=== PATIENT | male | born 1945 | race American Indian/Alaskan Native ===

== ENCOUNTER 2018-03-23 19:35 | Inpatient (IN) | payer MEDICARE ==
--- NOTE | 2018-03-23 20:45 | Emergency Department Report ---
- General Chief Complaint: Wound/Laceration Stated Complaint: PERFORATED ULCER ON STOMACH Time Seen by Provider: 03/23/18 20:42 Source: patient Mode of arrival: Ambulatory Limitations: No Limitations - History of Present Illness Initial Comments: Patient is a 72-year-old male that presents emergency room with complaints of stool coming out of his midline abdominal wound and abdominal pain. Patient states his pain is only directly around the wound. Patient states he had surgery for a perforated ulcer 01/01/2018 and the wound has been improving since then but this morning started draining brown liquid stool from the midline wound. Patient denies fever and chills. Patient denies chest pain short of breath. Patient states the pain is a 2-3 out of 10. Patient states the pain is worse with palpation and movement and better with rest. Patient states that Dr. clarke did his surgery -: Gradual Place: home Patient Tetanus UTD: Yes Associated Symptoms: pain. denies: loss of feeling/numbness, suspect foreign body present, unable to move injured part, weakness followed by dizziness, nausea/vomiting, fever - Related Data Home Medications Medication Instructions Recorded Confirmed Last Taken Aspirin [Aspirin BABY CHEW TAB] 81 mg PO QDAY 03/24/18 03/24/18 Unknown Atorvastatin Calcium 80 mg PO QDAY 03/24/18 03/24/18 Unknown Cholecalciferol (Vitamin D3) 1,000 unit PO QDAY 03/24/18 03/24/18 Unknown [Vitamin D3] Finasteride [Proscar] 5 mg PO QDAY 03/24/18 03/24/18 Unknown Tamsulosin HCl [Flomax] 0.4 mg PO QDAY 03/24/18 03/24/18 Unknown hydroCHLOROthiazide 25 mg PO QAM 03/24/18 03/24/18 Unknown [Hydrochlorothiazide] Previous Rx's Medication Instructions Recorded Last Taken Type Megestrol [Megace] 40 mg PO QID #20 tablet 12/25/17 Unknown Rx Multivitamin Tab [Multiple Vitamin 1 each PO QDAY #30 tablet 12/25/17 Unknown Rx TAB (Theragran)] Pantoprazole [Protonix TAB] 40 mg PO DAILY #30 tablet 12/25/17 Unknown Rx Allergies Allergy/AdvReac Type Severity Reaction Status Date / Time No Known Allergies Allergy Verified 03/23/18 19:44 ED Review of Systems ROS: Stated complaint: PERFORATED ULCER ON STOMACH Other details as noted in HPI Constitutional: denies: chills, fever Eyes: denies: eye pain, eye discharge, vision change ENT: denies: ear pain, throat pain Respiratory: denies: cough, shortness of breath, wheezing Cardiovascular: denies: chest pain, palpitations Endocrine: no symptoms reported Gastrointestinal: abdominal pain. denies: nausea, diarrhea Genitourinary: denies: urgency, dysuria Musculoskeletal: denies: back pain, joint swelling, arthralgia Skin: denies: rash, lesions Neurological: denies: headache, weakness, paresthesias Psychiatric: denies: anxiety, depression Hematological/Lymphatic: denies: easy bleeding, easy bruising ED Past Medical Hx - Past Medical History Previous Medical History?: Yes Hx Hypertension: Yes Hx Diabetes: Yes Hx Deep Vein Thrombosis: No - Surgical History Past Surgical History?: Yes Hx Pacemaker: No Hx Internal Defibrillator: No Additional Surgical History: scrotum and penis, perforated ulcer - Family History Family history: no significant - Social History Smoking Status: Never Smoker Substance Use Type: None - Medications Home Medications: Home Medications Medication Instructions Recorded Confirmed Last Taken Type Megestrol [Megace] 40 mg PO QID #20 tablet 12/25/17 03/24/18 Unknown Rx Multivitamin Tab [Multiple Vitamin 1 each PO QDAY #30 tablet 12/25/17 03/24/18 Unknown Rx TAB (Theragran)] Pantoprazole [Protonix TAB] 40 mg PO DAILY #30 tablet 12/25/17 03/24/18 Unknown Rx Aspirin [Aspirin BABY CHEW TAB] 81 mg PO QDAY 03/24/18 03/24/18 Unknown History Atorvastatin Calcium 80 mg PO QDAY 03/24/18 03/24/18 Unknown History Cholecalciferol (Vitamin D3) 1,000 unit PO QDAY 03/24/18 03/24/18 Unknown History [Vitamin D3] Finasteride [Proscar] 5 mg PO QDAY 03/24/18 03/24/18 Unknown History Tamsulosin HCl [Flomax] 0.4 mg PO QDAY 03/24/18 03/24/18 Unknown History hydroCHLOROthiazide 25 mg PO QAM 03/24/18 03/24/18 Unknown History [Hydrochlorothiazide] ED Physical Exam - General Limitations: No Limitations General appearance: alert, in no apparent distress - Head Head exam: Present: atraumatic, normocephalic - Eye Eye exam: Present: normal appearance - ENT ENT exam: Present: mucous membranes moist - Neck Neck exam: Present: normal inspection - Respiratory Respiratory exam: Present: normal lung sounds bilaterally. Absent: respiratory distress - Cardiovascular Cardiovascular Exam: Present: regular rate, normal rhythm. Absent: systolic murmur, diastolic murmur, rubs, gallop - GI/Abdominal GI/Abdominal exam: Present: soft, tenderness (midline wound noted on abdomen with small hole with stool-like drainage coming from hole. Drainage appears to be stool), normal bowel sounds - Rectal Rectal exam: Present: deferred - Extremities Exam Extremities exam: Present: normal inspection - Back Exam Back exam: Present: normal inspection - Neurological Exam Neurological exam: Present: alert, oriented X3 - Psychiatric Psychiatric exam: Present: normal affect, normal mood - Skin Skin exam: Present: warm, dry, normal color, other (midline surgical site on her abdomen with redness). Absent: rash ED Course Vital Signs 03/23/18 03/23/18 03/24/18 19:44 21:17 00:46 Temperature 97.5 F L 98.8 F Pulse Rate 133 H 94 H Respiratory 16 16 16 Rate Blood Pressure 118/78 Blood Pressure 98/56 [Left] O2 Sat by Pulse 100 100 100 Oximetry - Reevaluation(s) Reevaluation #1: Stressed all results with patient. Patient to be admitted to the hospitalist service. Patient agrees to plan of care 03/24/18 00:40 - Consultations Consultation #1: General surgery paged 03/23/18 20:45 General surgery return call. Discussed case with Dr. Weiner. recommends admission to hospitalist and IV antibiotics and nothing by mouth. 03/23/18 20:50 Consultation #2: Hospitalist consult for admission. Hospitalist to admit and assume care patient. 03/24/18 00:40 ED Medical Decision Making - Lab Data Result diagrams: 03/23/18 20:58 03/23/18 20:58 - Radiology Data Radiology results: report reviewed FINAL REPORT PROCEDURE: CT ABDOMEN PELVIS W CON TECHNIQUE: Computerized axial tomography of the abdomen and pelvis was performed after the IV injection of iodinated nonionic contrast. HISTORY: abd pain COMPARISON: No prior studies are available for comparison. FINDINGS: Visualized lower thorax: No significant abnormality. Liver: There are multiple sub centimeter areas of hypoattenuation within the liver, these have not changed since prior exam. These are too small to characterize. Spleen: Normal size and attenuation. Gallbladder and biliary system: The gallbladder lumen is distended. There is mild dilatation of the common bile duct. No stones are identified. The. Pancreas: Normal. Adrenals: Normal. Kidneys: Both kidneys have a normal size. No hydronephrosis. There is a 1 centimeter cystic region in the lower right renal cortex.. GI tract: Stomach is slightly distended with minimal debris most likely retained food products. There are few loops of slightly dilated small bowel in the mid abdomen. No obstruction is seen. Cecum, appendix region and colon normal. Moderate fecal debris in the distal colon.. Lymph nodes and mesentery: Normal. Vasculature: Moderate atherosclerosis of the aorta and branching vessels. Bladder: Normal. Reproductive organs: Normal. Peritoneum: No free fluid. Musculoskeletal structures: Moderate degenerative changes of the spine.. Other: None. IMPRESSION: There is no evident intestinal or urinary tract obstruction. There are few loops of slightly dilated small bowel in the mid abdomen, a mild enteritis is possible. Moderate fecal debris in the colon is noted, mild constipation is suspected. Sub centimeter areas of hypoattenuation within the liver are again noted and unchanged. These are too small to characterize. Small cystic region inferior right renal cortex is unchanged, this is not fully evaluated on this study. - Medical Decision Making 72-year-old male presents to emergency room with bowel pain and stool leaking from midline surgical site. Patient to be admitted to the hospitalist service. CTA is negative. Patient has recurrent fistula. General surgery consult and wants patient admitted to the hospital service for IV antibiotics and he will see the patient morning. Labs unremarkable. - Differential Diagnosis abdominal pain. Cellulitis. Fistula. Critical Care Time: Yes Critical care attestation.: If time is entered above; I have spent that time in minutes in the direct care of this critically ill patient, excluding procedure time. Critical Care Time: 45 minutes ED Disposition Clinical Impression: Abdominal wall fistula Abdominal pain Qualifiers: Abdominal location: periumbilical Qualified Code(s): R10.33 - Periumbilical pain Disposition: OP ADMIT IP TO THIS HOSP Is pt being admited?: Yes Does the pt Need Aspirin: No Condition: Critical Referrals: TANNER FIELDS MD [Primary Care Provider] - 3-5 Days Time of Disposition: 00:38
[2018-03-23 21:13] LABS: Basophils % (Auto) 0.2 % (0.0-1.8); Eosinophils % (Auto) 0.2 % (0.0-4.3); Hematocrit 29.6 % (35.5-45.6); Hemoglobin 9.8 gm/dl (11.8-15.2); Lymphocytes # (Auto) 1.5 K/mm3 (1.2-5.4); Lymphocytes % (Auto) 21.1 % (13.4-35.0); Mean Corpuscular HGB Conc 33 % (32-34); Mean Corpuscular Volume 82 fl (84-94); Monocytes # (Auto) 0.9 K/mm3 (0.0-0.8); Monocytes % (Auto) 11.7 % (0.0-7.3); Platelet Count 448 K/mm3 (140-440); Red Blood Count 3.62 M/mm3 (3.65-5.03); Red Cell Distribution Width 19.9 % (13.2-15.2)
[2018-03-23 21:41] LABS: Alanine Aminotransferase 18 units/L (7-56); Albumin 3.1 g/dL (3.9-5); BUN/Creatinine Ratio 26; Blood Urea Nitrogen 29 mg/dL (9-20); Hemolysis Index 0
--- NOTE | 2018-03-24 00:03 | Cat Scan Report ---
FINAL REPORT PROCEDURE: CT ABDOMEN PELVIS W CON TECHNIQUE: Computerized axial tomography of the abdomen and pelvis was performed after the IV inject ion of iodinated nonionic contrast. HISTORY: abd pain COMPARISON: No prior studies are available for comparison. FINDINGS: Visualized lower thorax: No significant abnormality. Liver: There are multiple sub centimeter areas of hypoattenuation within the liver, these have not ch anged since prior exam. These are too small to characterize. Spleen: Normal size and attenuation. Gallbladder and biliary system: The gallbladder lumen is distended. There is mild dilatation of the c ommon bile duct. No stones are identified. The. Pancreas: Normal. Adrenals: Normal. Kidneys: Both kidneys have a normal size. No hydronephrosis. There is a 1 centimeter cystic region in the lower right renal cortex.. GI tract: Stomach is slightly distended with minimal debris most likely retained food products. There are few loops of slightly dilated small bowel in the mid abdomen. No obstruction is seen. Cecum, jenyn endix region and colon normal. Moderate fecal debris in the distal colon.. Lymph nodes and mesentery: Normal. Vasculature: Moderate atherosclerosis of the aorta and branching vessels. Bladder: Normal. Reproductive organs: Normal. Peritoneum: No free fluid. Musculoskeletal structures: Moderate degenerative changes of the spine.. Other: None. IMPRESSION: There is no evident intestinal or urinary tract obstruction. There are few loops of slightly dilated small bowel in the mid abdomen, a mild enteritis is possible. Moderate fecal debris in the colon is n oted, mild constipation is suspected. Sub centimeter areas of hypoattenuation within the liver are again noted and unchanged. These are too small to characterize. Small cystic region inferior right renal cortex is unchanged, this is not fully evaluated on this clarissa dy.
[2018-03-24] MEDS ORDERED: ZOSYN/NS 4.5GM/100ML 4.5 GM/100 ML VIAL IV ONE (00:38)
[2018-03-24] MEDS ORDERED: NACL 0.9% 1000 ML 1,000 ML IV ONE (00:45)
[2018-03-24] MEDS ORDERED: SODIUM CHLORIDE FLUSH SYRINGE 10 ML IV PRN (01:18)
[2018-03-24] MEDS ORDERED: TYLENOL PR PRN (01:18)
[2018-03-24] MEDS ORDERED: ZOFRAN IV PRN (01:18)
[2018-03-24] MEDS ORDERED: MORPHINE IV PRN (01:18)
--- NOTE | 2018-03-24 01:24 | History and Physical Report ---
History of Present Illness Date of examination: 03/24/18 History of present illness: 72-year-old man with a history of hypertension, diabetes, BPH, hyperlipidemia, status post surgery for perforated ulcer 2 comes to the emergency room because the area around his fistula has become red, has increase of fecal matter earnest ining from from the fistula since . Spouse at bedside stated that the patient usually have drainage from the fistula, she's only had to change the dressing once to twice a day. However, since she has been doing dressing change every hour Review of systems Constitutional: no weight loss, chills, fever Ears, eyes, nose, mouth and throat: no nasal congestion, no nasal discharge, no sinus pressure, no vision change, no red eye. Neck: No neck pain or rigidity. Cardiovascular: no palpitations, chest pain Respiratory: no cough, shortness of breath Gastrointestinal: no hematochezia, abdominal pain Genitourinary : no frequency , no hematuria Musculoskeletal: no joint swelling or muscle ache Integumentary: no rash, no pruritis Neurological: no parathesias, no focal weakness Endocrine: no cold or heat intolerance, no polyuria or polydipsia Hematologic/Lymphatic: no easy bruising, no easy bleeding, no gland swelling Allergic/Immunologic: no urticaria, no angioedema. PAST MEDICAL HISTORY: hypertension, diabetes, BPH, hyperlipidemia, status post surgery for perforated ulcer 2 PAST SURGICAL HISTORY: status post surgery for perforated ulcer 2, bilateral vagotomy, duodenotomy SOCIAL HISTORY: Denies alcohol, drugs, quit tobacco FAMILY HISTORY: Hypertension Medications and Allergies Allergies Allergy/AdvReac Type Severity Reaction Status Date / Time No Known Allergies Allergy Verified 03/23/18 19:44 Home Medications Medication Instructions Recorded Confirmed Last Taken Type RX: Multivitamin Tab [Multiple 1 each PO QDAY #30 tablet 12/25/17 03/24/18 Unknown Rx Vitamin TAB (Theragran)] RX: Pantoprazole [Protonix TAB] 40 mg PO DAILY #30 tablet 12/25/17 03/24/18 Unknown Rx RX: Aspirin [Aspirin BABY CHEW TAB] 81 mg PO QDAY 03/24/18 03/24/18 Unknown History RX: Atorvastatin Calcium 80 mg PO QDAY 03/24/18 03/24/18 Unknown History RX: Cholecalciferol (Vitamin D3) 1,000 unit PO QDAY 03/24/18 03/24/18 Unknown History [Vitamin D3] RX: Finasteride [Proscar] 5 mg PO QDAY 03/24/18 03/24/18 Unknown History RX: Tamsulosin HCl [Flomax] 0.4 mg PO QDAY 03/24/18 03/24/18 Unknown History RX: hydroCHLOROthiazide 25 mg PO QAM 03/24/18 03/24/18 Unknown History [Hydrochlorothiazide] Ciprofloxacin HCl [Ciprofloxacin 500 mg PO Q12H #14 tab 03/27/18 Unknown Rx TAB] RX: Total Parenteral Nutrition See Protocol IV DAILY@1999 30 Days 03/27/18 Unknown Rx [TPN Adult] ml metroNIDAZOLE [Flagyl] 500 mg PO Q8HR #20 tablet 03/27/18 Unknown Rx Active Meds: Active Medications Acetaminophen (Tylenol) 650 mg [place] Q4H PRN PRN Reason: Pain MILD(1-3)/Fever >100.5/CHACON Enoxaparin Sodium (Lovenox) 30 mg SUB-Q QDAY JOHN Sodium Chloride (Nacl 0.9% 1000 Ml) 1,000 mls @ 250 mls/hr IV ONCE ONE Stop: 03/24/18 04:44 Last Admin: 03/24/18 00:55 Dose: 250 mls/hr Documented by: Sodium Chloride (Nacl 0.45% 1000 Ml) 1,000 mls @ 75 mls/hr IV DIRECT JOHN Morphine Sulfate (Morphine) 1 mg IV Q4H PRN PRN Reason: Pain, Moderate (4-6) Ondansetron HCl (Zofran) 4 mg IV Q4H PRN PRN Reason: Nausea And Vomiting Sodium Chloride (Sodium Chloride Flush Syringe 10 Ml) 10 ml IV BID JOHN Sodium Chloride (Sodium Chloride Flush Syringe 10 Ml) 10 ml IV PRN PRN PRN Reason: LINE FLUSH Exam - Physical Exam Narrative exam: General Apperance: The patient lying in bed, breathing comfortable HEENT: Normocephalic, atraumatic. Pupils equally round and reactive to light, EOMI, no sclericterus or JVD or thyromegaly or nodule. , no carotid bruit, mucous membranes moist, no exudate or erythema Heart: S1-S2, regular is rhythm Lungs: Clear to auscultation bilaterally, breathing comfortable Abdomen: Positive bowel sounds, soft, nontender, nondistended, no organomegaly Extremities: No edema cyanosis clubbing Skin: no rash, nodule, warm and dry Neuro: cranial nerves 2-12 intact, speech is fluent, motor/sensory intact - Constitutional Vitals: Temp Pulse Resp BP Pulse Ox 98.8 F 94 H 16 98/56 100 03/24/18 00:46 03/24/18 00:46 03/24/18 00:46 03/24/18 00:46 03/24/18 00:46 Results - Labs CBC & Chem 7: 03/24/18 05:02 03/28/18 05:25 Labs: Abnormal lab results 03/23/18 03/23/18 Range/Units 20:58 20:58 RBC 3.62 L (3.65-5.03) M/mm3 Hgb 9.8 L (11.8-15.2) gm/dl Hct 29.6 L (35.5-45.6) % MCV 82 L (84-94) fl MCH 27 L (28-32) pg RDW 19.9 H (13.2-15.2) % Plt Count 448 H (140-440) K/mm3 [place] % (Auto) 11.7 H (0.0-7.3) % [place] # 0.9 H (0.0-0.8) K/mm3 Carbon Dioxide 19 L (22-30) mmol/L BUN 29 H (9-20) mg/dL Glucose 123 H (75-100) mg/dL Albumin 3.1 L (3.9-5) g/dL - Imaging and Cardiology CT scan - abdomen: report reviewed CT scan - pelvis: report reviewed Assessment and Plan Assessment Infection of the abdominal wall fistula hypertension diabetes BPH hyperlipidemia Plan Admit to medicine Start IV fluid, IV Zosyn, consult surgery Check fingersticks and initiate insulin sliding scale DVT prophylaxis, IV morphine for pain
[2018-03-24] MEDS ORDERED: NACL 0.45% 1000 ML 1,000 ML IV SCH (02:00)
[2018-03-24 06:17] LABS: Basophils % (Auto) 0.2 % (0.0-1.8); Eosinophils % (Auto) 0.3 % (0.0-4.3); Hematocrit 28.9 % (35.5-45.6); Hemoglobin 9.4 gm/dl (11.8-15.2); Lymphocytes # (Auto) 1.9 K/mm3 (1.2-5.4); Lymphocytes % (Auto) 25.1 % (13.4-35.0); Mean Corpuscular HGB Conc 32 % (32-34); Mean Corpuscular Volume 84 fl (84-94); Monocytes % (Auto) 13.7 % (0.0-7.3); Platelet Count 391 K/mm3 (140-440); Red Blood Count 3.45 M/mm3 (3.65-5.03); Red Cell Distribution Width 19.9 % (13.2-15.2)
[2018-03-24] MEDS: ZOSYN/NS 3.375GM/50ML 3.375 GM/50 ML BAG IV SCH ×3 (06:32→22:57)
[2018-03-24 06:39] LABS: BUN/Creatinine Ratio 28; Blood Urea Nitrogen 25 mg/dL (9-20); Calcium 8.7 mg/dL (8.4-10.2); Hemolysis Index 3
[2018-03-24] MEDS ORDERED: LOVENOX SUB-Q SCH (10:00)
--- NOTE | 2018-03-24 10:17 | Progress Note ---
Assessment and Plan Full consult dictated from previous d/c summary: Procedures: 11/19/17 Exploratory Laparotomy, bilateral vagotomy, duodenotomy, evacuation of a hematoma per Dr. Mercado * CT abdomen and pelvis findings consistent with perforated viscus/peptic ulcer perforation with septic shock, intubated to protect the airway, patient underwent exploratory laparotomy and extensive bowel surgery as mentioned in surgical note Hospital course: 72 yo male pt with h/o recent [facility]inder[facility] with complicated hospital course with perforated peptic ulcer requiring surgery, was sent to rehabilitation for a month and discharged home.Patient presented to [facility] ED on 11/18/17 with AMS requiring Intubation. Severe anemia and sepsis He was found to have perforated peptic ulcer on CT abd/pelvis. Patient seen by surgery and underwent surgical procedure as mentioned below, patient had enterocutaneous fistula, managed with multiple antibiotics and supportive care, significantly improved , was NPO on TPN, oral nutrition gradually started and advanced, most recent CT abdomen and pelvis revealed a small fistula from distal small bowel to abdominal wall which was in significant Today patient is on regular diet, tolerating well, had bowel movement Patient is medically stable for discharge to rehabilitation versus home with home health Discharge diagnosis and treatment: Perforated duodenal ulcer; present on admission -s/p exploratory laparotomy, bilateral vagotomy , duodenotomy, evacuation hematoma, gastroenterostomy, enteroenterostomy, no new symptoms Surgery following periodically , tolerating regular diet , TPN DC'd and cleared for discharge follow in office in 2 weeks Enterocutaneous fistula; significantly improved CT abdomen and pelvis done12/28/17 revealed persistence of small enterocutaneous fistula From distal small bowel to the abdominal wall, surgery evaluated the patient, advised to continue oral nutrition Currently patient is on regular ADA diet. Laboratory Tests 03/24/18 03/24/18 05:02 05:02 WBC 7.5 Hgb 9.4 L Hct 28.9 L Sodium 139 Potassium 4.2 Chloride 99.9 Carbon Dioxide 23 BUN 25 H Creatinine 0.9 Imp - persistent/recurrent entero-cutaneous fistula pt not surgical candidate at this time rec: keep npo except for ice chips and meds start TPN ET nurse for local wd care around fistula site. will follow Objective Vital Signs - 12hr 03/24/18 03/24/18 03/24/18 00:46 03:28 04:45 Temperature 98.8 F 98.3 F Pulse Rate 94 H 90 83 Respiratory 16 16 18 Rate Blood Pressure 118/63 Blood Pressure 98/56 127/68 [Left] O2 Sat by Pulse 100 99 100 Oximetry 03/24/18 03/24/18 08:05 08:40 Temperature 98.4 F Pulse Rate 86 Respiratory 20 Rate Blood Pressure Blood Pressure 117/64 [Left] O2 Sat by Pulse 96 99 Oximetry - Labs 03/24/18 05:02 03/24/18 05:02 Diabetes panel 03/23/18 03/24/18 Range/Units 20:58 05:02 Sodium 139 139 (137-145) mmol/L Potassium 3.8 4.2 (3.6-5.0) mmol/L Chloride 99.3 99.9 (98-107) mmol/L Carbon Dioxide 19 L 23 (22-30) mmol/L BUN 29 H 25 H (9-20) mg/dL Creatinine 1.1 0.9 (0.8-1.5) mg/dL Glucose 123 H 94 (75-100) mg/dL Calcium 9.0 8.7 (8.4-10.2) mg/dL AST 14 (5-40) units/L ALT 18 (7-56) units/L Alkaline Phosphatase 75 (35-129) units/L Total Protein 7.3 (6.3-8.2) g/dL Albumin 3.1 L (3.9-5) g/dL Calcium panel 03/23/18 03/24/18 Range/Units 20:58 05:02 Calcium 9.0 8.7 (8.4-10.2) mg/dL Albumin 3.1 L (3.9-5) g/dL Pituitary panel 03/23/18 03/24/18 Range/Units 20:58 05:02 Sodium 139 139 (137-145) mmol/L Potassium 3.8 4.2 (3.6-5.0) mmol/L Chloride 99.3 99.9 (98-107) mmol/L Carbon Dioxide 19 L 23 (22-30) mmol/L BUN 29 H 25 H (9-20) mg/dL Creatinine 1.1 0.9 (0.8-1.5) mg/dL Glucose 123 H 94 (75-100) mg/dL Calcium 9.0 8.7 (8.4-10.2) mg/dL Adrenal panel 03/23/18 03/24/18 Range/Units 20:58 05:02 Sodium 139 139 (137-145) mmol/L Potassium 3.8 4.2 (3.6-5.0) mmol/L Chloride 99.3 99.9 (98-107) mmol/L Carbon Dioxide 19 L 23 (22-30) mmol/L BUN 29 H 25 H (9-20) mg/dL Creatinine 1.1 0.9 (0.8-1.5) mg/dL Glucose 123 H 94 (75-100) mg/dL Calcium 9.0 8.7 (8.4-10.2) mg/dL Total Bilirubin 1.00 (0.1-1.2) mg/dL AST 14 (5-40) units/L ALT 18 (7-56) units/L Alkaline Phosphatase 75 (35-129) units/L Total Protein 7.3 (6.3-8.2) g/dL Albumin 3.1 L (3.9-5) g/dL
[2018-03-24] MEDS ORDERED: [UNRECOGNIZED DRUG - OTHER] PO ONE (11:00)
[2018-03-24] MEDS ORDERED: MANNITOL PO ONE (11:00)
--- NOTE | 2018-03-24 11:43 | Consultation ---
REASON FOR CONSULTATION: Rule out recurrent enterocutaneous fistula. HISTORY OF PRESENT ILLNESS: The patient is a 72-year-old gentleman, somewhat of a poor historian. Most of the history is obtained from the chart and patient's family. It appears that the patient was admitted here at the hospital back in December secondary to a perforated peptic ulcer. Again, it appears the patient underwent an exploratory laparotomy at that time with a bilateral vagotomy, foraminotomy gastroenterostomy, and enteroenterostomy. Prior to this, family states patient had been at the [facility] where he underwent surgery for Manjinder gangrene and underwent " at that time also appeared again, the history is somewhat nebulous and unclear, but subsequently the patient did come here to this institution and have the aforementioned surgery. The patient postoperatively developed an enterocutaneous fistula, which was treated with n.p.o. and TPN and supportive care. Apparently, the patient was doing much better, but recently the drainage increased and thus his arrival to the hospital. PAST MEDICAL HISTORY: Pertinent for diabetes, hypertension, high cholesterol, BPH, and GERD. PAST SURGICAL HISTORY: Status post peptic ulcer surgery as previously mentioned, status post Manjinder gangrene surgery. ALLERGIES: No known allergies. MEDICATIONS: Included metformin, but family states the patient is now off of metformin and his diabetes is diet controlled. Also on a statin, aspirin, hydrochlorothiazide, Proscar, and Flomax for his BPH and Protonix. FAMILY HISTORY: Hypertension, diabetes, and CVA. SOCIAL HISTORY: He was a longtime smoker, approximately a pack a day for 60 years and quit in September. Also, occasional ethanol intake. PHYSICAL EXAMINATION: GENERAL: At this time reveals the patient to be awake, alert, cooperative, in no acute distress. ABDOMEN: Examination of the abdomen reveals old midline scar. There is slight drainage at a point in the midline scar which family states has much improved since his admission " Some skin irritation around the draining site was to be expected. LABORATORY DATA: Lab work at present includes a CBC, which shows a white count of 7.5, H and H is 9.4 and 28.9. Electrolytes are essentially within normal limits. A CT scan of the abdomen has been performed, which reveals few loops of slightly dilated small bowel in the mid abdomen and possibly mild enteritis. There is no evidence of obstruction noted. IMPRESSION: 1. At this time is a 72-year-old gentleman known diabetes, hypertension, BPH, and GERD. 2. Status post extensive gastric surgery for perforated ulcer. 3. Rule out persistent/recurring enterocutaneous fistula. RECOMMENDATIONS: At this time, would be to keep the patient n.p.o. and restarts TPN. Local wound care around the fistula site. We will follow with you. Thank you very much for consultation. JOB# [id number] FP/NTS
[2018-03-24] MEDS: SODIUM CHLORIDE FLUSH SYRINGE 10 ML IV SCH ×2 (12:17→22:58)
[2018-03-24] MEDS: LOVENOX SUB-Q SCH (12:17)
--- NOTE | 2018-03-24 15:34 | Progress Note ---
Assessment and Plan - Patient Problems (1) Abdominal wall fistula Current Visit: Yes Status: Acute Plan to address problem: Patient presents with recurrent enterocutaneous fistula. Spoke with surgery patient is no longer surgical candidate at this time. Treatment options now to continue local wound care and IV antibiotics. Patient will likely need extended course of by mouth antibiotics upon discharge and aggressive local wound care. Surgery following. (2) Anemia Current Visit: No Status: Acute (3) Peptic ulcer with perforation Current Visit: No Status: Acute Plan to address problem: stable no bleeding H and H stable. no pain History Interval history: Patient able to talk communicate alert oriented. Sister and other family membe rs at bedside all questions and concerns answered to their satisfaction. Also the patient's satisfaction. Hospitalist Physical - Constitutional Vitals: Temp Pulse Resp BP Pulse Ox 97.8 F 85 20 104/63 97 03/24/18 13:30 03/24/18 14:40 03/24/18 13:30 03/24/18 13:30 03/24/18 14:40 General appearance: Present: no acute distress - EENT Eyes: Present: PERRL, EOM intact ENT: hearing intact, clear oral mucosa, poor dentition, no dentition normal, no thrush - Neck Neck: Present: supple, normal ROM - Respiratory Respiratory effort: normal Respiratory: bilateral: CTA - Cardiovascular Rhythm: regular Heart Sounds: Present: S1 & S2 - Extremities Extremities: no ischemia, pulses intact, pulses symmetrical, No edema, normal temperature Peripheral Pulses: within normal limits - Abdominal General gastrointestinal: other (abdomen flat hypoactive bowel sounds. Patient has small area of leakage possible dehiscence. Otherwise warm irritated cellulitic appearing skin around the site. Most likely irritated from the discharge. Has no clear systemic evidence of infection.) Localized gastrointestinal: tender: epigastric periumbilical - Integumentary Integumentary: Present: clear, warm, erythema. Absent: jaundice, rash, clammy, pale - Psychiatric Psychiatric: appropriate mood/affect, intact judgment & insight - Neurologic Neurologic: CNII-XII intact Results - Labs CBC & Chem 7: 03/24/18 05:02 03/24/18 05:02 Labs: Laboratory Last Values WBC 7.5 K/mm3 (4.5-11.0) 03/24/18 05:02 RBC 3.45 M/mm3 (3.65-5.03) L 03/24/18 05:02 Hgb 9.4 gm/dl (11.8-15.2) L 03/24/18 05:02 Hct 28.9 % (35.5-45.6) L 03/24/18 05:02 MCV 84 fl (84-94) 03/24/18 05:02 MCH 27 pg (28-32) L 03/24/18 05:02 MCHC 32 % (32-34) 03/24/18 05:02 RDW 19.9 % (13.2-15.2) H 03/24/18 05:02 Plt Count 391 K/mm3 (140-440) 03/24/18 05:02 Lymph % (Auto) 25.1 % (13.4-35.0) 03/24/18 05:02 [place] % (Auto) 13.7 % (0.0-7.3) H 03/24/18 05:02 Eos % (Auto) 0.3 % (0.0-4.3) 03/24/18 05:02 Baso % (Auto) 0.2 % (0.0-1.8) 03/24/18 05:02 Lymph # 1.9 K/mm3 (1.2-5.4) 03/24/18 05:02 [place] # 1.0 K/mm3 (0.0-0.8) H 03/24/18 05:02 Eos # 0.0 K/mm3 (0.0-0.4) 03/24/18 05:02 Baso # 0.0 K/mm3 (0.0-0.1) 03/24/18 05:02 Seg Neutrophils % 60.7 % (40.0-70.0) 03/24/18 05:02 Seg Neutrophils # 4.6 K/mm3 (1.8-7.7) 03/24/18 05:02 Sodium 139 mmol/L (137-145) 03/24/18 05:02 Potassium 4.2 mmol/L (3.6-5.0) 03/24/18 05:02 Chloride 99.9 mmol/L (98-107) 03/24/18 05:02 Carbon Dioxide 23 mmol/L (22-30) 03/24/18 05:02 Anion Gap 20 mmol/L 03/24/18 05:02 BUN 25 mg/dL (9-20) H 03/24/18 05:02 Creatinine 0.9 mg/dL (0.8-1.5) 03/24/18 05:02 Estimated GFR > 60 ml/min 03/24/18 05:02 BUN/Creatinine Ratio 28 % 03/24/18 05:02 Glucose 94 mg/dL (75-100) 03/24/18 05:02 Lactic Acid 1.20 mmol/L (0.7-2.0) 03/23/18 20:58 Calcium 8.7 mg/dL (8.4-10.2) 03/24/18 05:02 Phosphorus 4.00 mg/dL (2.5-4.5) 03/24/18 05:02 Magnesium 2.00 mg/dL (1.7-2.3) 03/24/18 05:02 Total Bilirubin 1.00 mg/dL (0.1-1.2) 03/23/18 20:58 AST 14 units/L (5-40) 03/23/18 20:58 ALT 18 units/L (7-56) 03/23/18 20:58 Alkaline Phosphatase 75 units/L (35-129) 03/23/18 20:58 Total Protein 7.3 g/dL (6.3-8.2) 03/23/18 20:58 Albumin 3.1 g/dL (3.9-5) L 03/23/18 20:58 Albumin/Globulin Ratio 0.7 % 03/23/18 20:58 Nutrition/Malnutrition Assess - Dietary Evaluation Nutrition/Malnutrition Findings: Nutrition Notes Start: 03/24/18 13:07 Freq: Status: Active Protocol: Document 03/24/18 13:07 [facility] (Rec: 03/24/18 13:22 [facility] [email or web address]) Nutrition Notes Height 6 ft 4 in Weight 68.039 kg [place] Body Weight (lbs) 202.0 BMI 18.2 Is patient on ventilator? No Is Patient Ambulatory and/or Out of Bed Yes [facility] [ 1984.957 NUTR.MSJOOB] Kcal/Kg value to use for calculation 35 Approximate Energy Requirements Using 2381 kcal/Kg Additional Notes Pro needs 1.25-1.5g/k- 102g/day Fluid needs 1ml/kcal
[2018-03-24] MEDS ORDERED: TPN ADULT 1,999.9 ML IV SCH (20:00)
[2018-03-25] MEDS: ZOSYN/NS 3.375GM/50ML 3.375 GM/50 ML BAG IV SCH ×3 (05:03→23:04)
[2018-03-25 05:35] LABS: BUN/Creatinine Ratio 23; Blood Urea Nitrogen 21 mg/dL (9-20); Calcium 8.7 mg/dL (8.4-10.2); Hemolysis Index 3
--- NOTE | 2018-03-25 09:26 | Progress Note ---
Assessment and Plan Assessment and plan: - Patient Problems (1) Abdominal wall fistula Current Visit: Yes Status: Acute Plan to address problem: Patient presents with recurrent enterocutaneous fistula. Spoke with surgery patient is no longer surgical candidate at this time. Treatment options now to continue local wound care and IV antibiotics. Patient will likely need extended course of by mouth antibiotics upon discharge and aggressive local wound care. Surgery following. ET nurse pending. Tolerating TPN. Per surgery will need TPN outpatient. (2) Anemia Current Visit: No Status: Acute (3) Peptic ulcer with perforation Current Visit: No Status: Acute Plan to address problem: stable no bleeding H and H stable. no pain (4) Hypokalmeia- Replace. History Interval history: Patient seen and examined. Family brought to hospital due to home RN noted stool in abdominal fistula. No new complaints, now on TPN and tolerating Hospitalist Physical - Physical exam Narrative exam: General appearance: Present: no acute distress - EENT Eyes: Present: PERRL, EOM intact ENT: hearing intact, clear oral mucosa, poor dentition, no dentition normal, no thrush - Neck Neck: Present: supple, normal ROM - Respiratory Respiratory effort: normal Respiratory: bilateral: CTA - Cardiovascular Rhythm: regular Heart Sounds: Present: S1 & S2 - Extremities Extremities: no ischemia, pulses intact, pulses symmetrical, No edema, normal temperature Peripheral Pulses: within normal limits - Abdominal General gastrointestinal: other (abdomen flat hypoactive bowel sounds. Patient has small area of leakage possible dehiscence. Otherwise warm irritated cellulitic appearing skin around the site. Most likely irritated from the discharge. Has no clear systemic evidence of infection.) Localized gastrointestinal: tender: epigastric periumbilical - Integumentary Integumentary: Present: clear, warm, erythema. Absent: jaundice, rash, clammy, pale - Psychiatric Psychiatric: appropriate mood/affect, intact judgment & insight - Neurologic Neurologic: CNII-XII intact - Constitutional Vitals: Temp Pulse Resp BP Pulse Ox 98.2 F 102 H 18 108/65 98 03/25/18 07:18 03/25/18 07:18 03/25/18 07:18 03/25/18 07:18 03/25/18 08:16 General appearance: Present: no acute distress Results - Labs CBC & Chem 7: 03/24/18 05:02 03/26/18 Unknown Labs: Laboratory Last Values WBC 7.5 K/mm3 (4.5-11.0) 03/24/18 05:02 RBC 3.45 M/mm3 (3.65-5.03) L 03/24/18 05:02 Hgb 9.4 gm/dl (11.8-15.2) L 03/24/18 05:02 Hct 28.9 % (35.5-45.6) L 03/24/18 05:02 MCV 84 fl (84-94) 03/24/18 05:02 MCH 27 pg (28-32) L 03/24/18 05:02 MCHC 32 % (32-34) 03/24/18 05:02 RDW 19.9 % (13.2-15.2) H 03/24/18 05:02 Plt Count 391 K/mm3 (140-440) 03/24/18 05:02 Lymph % (Auto) 25.1 % (13.4-35.0) 03/24/18 05:02 [place] % (Auto) 13.7 % (0.0-7.3) H 03/24/18 05:02 Eos % (Auto) 0.3 % (0.0-4.3) 03/24/18 05:02 Baso % (Auto) 0.2 % (0.0-1.8) 03/24/18 05:02 Lymph # 1.9 K/mm3 (1.2-5.4) 03/24/18 05:02 [place] # 1.0 K/mm3 (0.0-0.8) H 03/24/18 05:02 Eos # 0.0 K/mm3 (0.0-0.4) 03/24/18 05:02 Baso # 0.0 K/mm3 (0.0-0.1) 03/24/18 05:02 Seg Neutrophils % 60.7 % (40.0-70.0) 03/24/18 05:02 Seg Neutrophils # 4.6 K/mm3 (1.8-7.7) 03/24/18 05:02 Sodium 138 mmol/L (137-145) 03/25/18 05:00 Potassium 3.3 mmol/L (3.6-5.0) L D 03/25/18 05:00 Chloride 101.8 mmol/L (98-107) 03/25/18 05:00 Carbon Dioxide 20 mmol/L (22-30) L 03/25/18 05:00 Anion Gap 20 mmol/L 03/25/18 05:00 BUN 21 mg/dL (9-20) H 03/25/18 05:00 Creatinine 0.9 mg/dL (0.8-1.5) 03/25/18 05:00 Estimated GFR > 60 ml/min 03/25/18 05:00 BUN/Creatinine Ratio 23 % 03/25/18 05:00 Glucose 123 mg/dL (75-100) H 03/25/18 05:00 POC Glucose 117 (70-105) H 03/25/18 04:51 Lactic Acid 1.20 mmol/L (0.7-2.0) 03/23/18 20:58 Calcium 8.7 mg/dL (8.4-10.2) 03/25/18 05:00 Phosphorus 4.70 mg/dL (2.5-4.5) H 03/25/18 05:00 Magnesium 2.10 mg/dL (1.7-2.3) 03/25/18 05:00 Total Bilirubin 1.00 mg/dL (0.1-1.2) 03/23/18 20:58 AST 14 units/L (5-40) 03/23/18 20:58 ALT 18 units/L (7-56) 03/23/18 20:58 Alkaline Phosphatase 75 units/L (35-129) 03/23/18 20:58 Total Protein 7.3 g/dL (6.3-8.2) 03/23/18 20:58 Albumin 3.1 g/dL (3.9-5) L 03/23/18 20:58 Albumin/Globulin Ratio 0.7 % 03/23/18 20:58 Nutrition/Malnutrition Assess - Dietary Evaluation Nutrition/Malnutrition Findings: Nutrition Notes Start: 03/24/18 13:07 Freq: Status: Active Protocol: Document 03/24/18 13:07 [facility] (Rec: 03/24/18 13:22 [facility] SRW- [email or web address]) Nutrition Notes Need for Assessment generated from: 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 Pt also screened for malnutrition risk. [employer]ING, pt had good appetite, but was eating smaller portions. MD wants bowel rest at this time. PICC line ordered. Percent of energy/protein needs met: 34% energy 100% pro Burn Absent Trauma Absent GI Symptoms None Food Allergy No Current % PO Negligible Minimum of two criteria Yes Interpretation of Weight Loss (severe) >10% in 6 months Body Fat Depletion Moderate depletion (severe) Muscle Mass Moderate Depletion (severe) Fluid Accumulation N/A Reduced Perinatal Director Strength N/A (non-severe) Protein-Calorie Malnutrition Severe #2 Nutrition Diagnosis Malnutrition Etiology chronic illness, altered GI tract structure/function As Evidenced by Signs and Symptoms BMI 18.3, unintentional wt loss, subcutaneous fat loss, muscle loss, reduced PO intake #1 Nutrition Diagnosis Altered GI function Etiology perforated abdominal ulcer As Evidenced by Signs and Symptoms pt NPO and requires PN to meet nutrient needs Is patient on ventilator? No Is Patient Ambulatory and/or Out of Bed Yes REE-([facility]-ambulatory/OOB) [ 1984.957 NUTR.MSJOOB] Kcal/Kg value to use for calculation 35 Approximate Energy Requirements Using 2381 kcal/Kg Additional Notes Pro needs 1.25-1.5g/k- 102g/day Fluid needs 1ml/kcal Nutrition Intervention Nutrition Support: Start PN at 83.33ml/hr: 5% dextrose, 4.3% amino acids, MVI, thiamines, 100mEq Na, 70mEq K, 16mEq Mg, 20mmol Phos , 50%/50% chloride/acetate. Osmolality: 768. Kcal 680 Protein (gm) 85 Carbohydrates (gm) 100 Fat (gm) 0 Fluid (mL) 2,000 Fiber (gm) 0 Goal #1 PN to meet 90-100% energy and pro needs Goal #2 Wt maintenance and/or gain Anticipated Discharge Needs: Continue TPN if necessary Follow-Up By: 03/25/18 Additional Comments Labs in am: BMP, Mg, Phos - Attestation Statement I have reviewed and agreed w/ Malnutrition eval & tx plan: Yes
[2018-03-25] MEDS: LOVENOX SUB-Q SCH (10:05)
[2018-03-25] MEDS: SODIUM CHLORIDE FLUSH SYRINGE 10 ML IV SCH (10:06)
--- NOTE | 2018-03-25 11:09 | Progress Note ---
Assessment and Plan Pt status quo. recently sedated. no specific compl as per family. RN noted "stool" drainage from fistula site Abd soft TPN begun r/o colo-cutaneous fistula awaiting ET nurse for local care PT to ambulate as angelito correct low K as per nutrition team pt will need home TPN arrangements as per case management Selected Entries 03/25/18 03/25/18 07:18 08:16 Temperature 98.2 F Pulse Rate 102 H O2 Sat by Pulse 98 Oximetry Blood Pressure 108/65 Laboratory Tests 03/25/18 05:00 Sodium 138 Potassium 3.3 L D Chloride 101.8 BUN 21 H Creatinine 0.9 Objective Vital Signs - 12hr 03/25/18 03/25/18 03/25/18 02:07 06:04 07:18 Temperature 98.8 F 98.2 F Pulse Rate 96 H 102 H Respiratory 16 18 18 Rate Blood Pressure 132/72 108/65 O2 Sat by Pulse 99 100 Oximetry 03/25/18 08:16 Temperature Pulse Rate Respiratory Rate Blood Pressure O2 Sat by Pulse 98 Oximetry - Labs 03/24/18 05:02 03/25/18 05:00 Diabetes panel 03/25/18 Range/Units 05:00 Sodium 138 (137-145) mmol/L Potassium 3.3 L D (3.6-5.0) mmol/L Chloride 101.8 (98-107) mmol/L Carbon Dioxide 20 L (22-30) mmol/L BUN 21 H (9-20) mg/dL Creatinine 0.9 (0.8-1.5) mg/dL Glucose 123 H (75-100) mg/dL Calcium 8.7 (8.4-10.2) mg/dL Calcium panel 03/24/18 03/25/18 Range/Units 05:02 05:00 Calcium 8.7 (8.4-10.2) mg/dL Phosphorus 4.00 4.70 H (2.5-4.5) mg/dL Pituitary panel 03/25/18 Range/Units 05:00 Sodium 138 (137-145) mmol/L Potassium 3.3 L D (3.6-5.0) mmol/L Chloride 101.8 (98-107) mmol/L Carbon Dioxide 20 L (22-30) mmol/L BUN 21 H (9-20) mg/dL Creatinine 0.9 (0.8-1.5) mg/dL Glucose 123 H (75-100) mg/dL Calcium 8.7 (8.4-10.2) mg/dL Adrenal panel 03/25/18 Range/Units 05:00 Sodium 138 (137-145) mmol/L Potassium 3.3 L D (3.6-5.0) mmol/L Chloride 101.8 (98-107) mmol/L Carbon Dioxide 20 L (22-30) mmol/L BUN 21 H (9-20) mg/dL Creatinine 0.9 (0.8-1.5) mg/dL Glucose 123 H (75-100) mg/dL Calcium 8.7 (8.4-10.2) mg/dL
[2018-03-25] MEDS ORDERED: TPN ADULT IV SCH (20:00)
[2018-03-26] MEDS: SODIUM CHLORIDE FLUSH SYRINGE 10 ML IV SCH ×2 (02:40→09:03)
[2018-03-26 07:02] LABS: BUN/Creatinine Ratio 25; Blood Urea Nitrogen 25 mg/dL (9-20); Calcium 8.3 mg/dL (8.4-10.2); Hemolysis Index 7
--- NOTE | 2018-03-26 08:41 | Progress Note ---
Assessment and Plan Assessment and plan: 71-year-old man with a history of hypertension, diabetes, BPH, hyperlipidemia, status post surgery for perforated ulcer 2 comes to the emergency room because the area around his fistula has become red, has increase of fecal matter draining from from the fistula since . Spouse at bedside stated that the patient usually have drainage from the fistula, she's only had to change the dressing once to twice a day. However, since she has been doing dressing change every hour. Surgery evaluated the patient and he is according to surgery not a surgical candidate at this time. Will continue supportive care. TPN needed and to be managed outpatient by Surgery and home health. Awaiting PIC C line. Patient will continue home activity as tolerated. - Patient Problems (1) Abdominal wall fistula Current Visit: Yes Status: Acute Plan to address problem: Patient presents with recurrent enterocutaneous fistula. Spoke with surgery patient is no longer surgical candidate at this time. Treatment options now to continue local wound care and IV antibiotics. Patient will likely need extended course of by mouth antibiotics upon discharge and aggressive local wound care. Surgery following. ET nurse pending. Tolerating TPN. Per surgery will need TPN outpatient. CT scan concerning for mild constipation. Will recommend outpatient follow up with CT with surgeon Discussed with surgeon and he can follow with patient outpatient PRN BUT advised patient of need for close follow up with PCP for electrolyte managment. Expected to be on TPN per surgeon for 3-6 weeks to see if fistula will heal. (2) Anemia Current Visit: No Status: Acute (3) Peptic ulcer with perforation Current Visit: No Status: Acute Plan to address problem: stable no bleeding H and H stable. no pain (4) Hypokalmeia- Replaced. DVT/GI prophy Case management to evaluate for Rehab for physical optimization prior to dischar ge. History Interval history: Patient seen and examined. Family brought to hospital due to home RN noted stool in abdominal fistula. No new complaints, now on TPN and tolerating Hospitalist Physical - Physical exam Narrative exam: General appearance: Present: no acute distress - EENT Eyes: Present: PERRL, EOM intact ENT: hearing intact, clear oral mucosa, poor dentition, no dentition normal, no thrush - Neck Neck: Present: supple, normal ROM - Respiratory Respiratory effort: normal Respiratory: bilateral: CTA - Cardiovascular Rhythm: regular Heart Sounds: Present: S1 & S2 - Extremities Extremities: no ischemia, pulses intact, pulses symmetrical, No edema, normal temperature Peripheral Pulses: within normal limits - Abdominal General gastrointestinal: other (abdomen flat hypoactive bowel sounds. Patient has small area of leakage possible dehiscence. Otherwise warm irritated cellulitic appearing skin around the site. Most likely irritated from the discharge. Has no clear systemic evidence of infection.) Localized gastrointestinal: tender: epigastric periumbilical - Integumentary Integumentary: Present: clear, warm, erythema. Absent: jaundice, rash, clammy, pale - Psychiatric Psychiatric: appropriate mood/affect, intact judgment & insight - Neurologic Neurologic: CNII-XII intact - Constitutional Vitals: Temp Pulse Resp BP Pulse Ox 98.7 F 66 20 102/49 100 03/26/18 02:40 03/26/18 02:40 03/26/18 02:40 03/26/18 02:40 03/26/18 02:40 General appearance: Present: no acute distress Results - Labs CBC & Chem 7: 03/24/18 05:02 03/26/18 Unknown Labs: Laboratory Last Values WBC 7.5 K/mm3 (4.5-11.0) 03/24/18 05:02 RBC 3.45 M/mm3 (3.65-5.03) L 03/24/18 05:02 Hgb 9.4 gm/dl (11.8-15.2) L 03/24/18 05:02 Hct 28.9 % (35.5-45.6) L 03/24/18 05:02 MCV 84 fl (84-94) 03/24/18 05:02 MCH 27 pg (28-32) L 03/24/18 05:02 MCHC 32 % (32-34) 03/24/18 05:02 RDW 19.9 % (13.2-15.2) H 03/24/18 05:02 Plt Count 391 K/mm3 (140-440) 03/24/18 05:02 Lymph % (Auto) 25.1 % (13.4-35.0) 03/24/18 05:02 [place] % (Auto) 13.7 % (0.0-7.3) H 03/24/18 05:02 Eos % (Auto) 0.3 % (0.0-4.3) 03/24/18 05:02 Baso % (Auto) 0.2 % (0.0-1.8) 03/24/18 05:02 Lymph # 1.9 K/mm3 (1.2-5.4) 03/24/18 05:02 [place] # 1.0 K/mm3 (0.0-0.8) H 03/24/18 05:02 Eos # 0.0 K/mm3 (0.0-0.4) 03/24/18 05:02 Baso # 0.0 K/mm3 (0.0-0.1) 03/24/18 05:02 Seg Neutrophils % 60.7 % (40.0-70.0) 03/24/18 05:02 Seg Neutrophils # 4.6 K/mm3 (1.8-7.7) 03/24/18 05:02 Sodium 139 mmol/L (137-145) 03/26/18 Unknown Potassium 4.2 mmol/L (3.6-5.0) D 03/26/18 Unknown Chloride 103.4 mmol/L (98-107) 03/26/18 Unknown Carbon Dioxide 23 mmol/L (22-30) 03/26/18 Unknown Anion Gap 17 mmol/L 03/26/18 Unknown BUN 25 mg/dL (9-20) H 03/26/18 Unknown Creatinine 1.0 mg/dL (0.8-1.5) 03/26/18 Unknown Estimated GFR > 60 ml/min 03/26/18 Unknown BUN/Creatinine Ratio 25 % 03/26/18 Unknown Glucose 122 mg/dL (75-100) H 03/26/18 Unknown POC Glucose 117 (70-105) H 03/25/18 04:51 Lactic Acid 1.20 mmol/L (0.7-2.0) 03/23/18 20:58 Calcium 8.3 mg/dL (8.4-10.2) L 03/26/18 Unknown Phosphorus 3.00 mg/dL (2.5-4.5) D 03/26/18 Unknown Magnesium 2.20 mg/dL (1.7-2.3) 03/26/18 Unknown Total Bilirubin 1.00 mg/dL (0.1-1.2) 03/23/18 20:58 AST 14 units/L (5-40) 03/23/18 20:58 ALT 18 units/L (7-56) 03/23/18 20:58 Alkaline Phosphatase 75 units/L (35-129) 03/23/18 20:58 Total Protein 7.3 g/dL (6.3-8.2) 03/23/18 20:58 Albumin 3.1 g/dL (3.9-5) L 03/23/18 20:58 Albumin/Globulin Ratio 0.7 % 03/23/18 20:58 Nutrition/Malnutrition Assess - Dietary Evaluation Nutrition/Malnutrition Findings: Nutrition Notes Start: 03/24/18 13:07 Freq: Status: Active Protocol: Document 03/25/18 12:25 [facility] (Rec: 03/25/18 12:28 [facility] SRW- [email or web address]) Nutrition Notes Initial or Follow up Reassessment Current Diagnosis Diabetes Other Pertinent Diagnosis Perforated abdominal ulcer Current Diet TPN at 83.33ml/hr Labs/Tests K 3.3 CO2 - 20 BUN 21 Phos 4.7 Pertinent Medications Reviewed Height 6 ft 4 in Weight 68.039 kg [place] Body Weight (lbs) 202.0 BMI 18.2 Subjective/Other Information Day 2 PPN. Observed PN infusing at 83.33ml/hr. Percent of energy/protein needs met: 36% energy 100% pro Burn Absent Trauma Absent #2 Nutrition Diagnosis Malnutrition Diagnosis Progress(for reassessment Continues documentation) #1 Nutrition Diagnosis Altered GI function Diagnosis Progress(for reassessment Continues documentation) Is patient on ventilator? No Is Patient Ambulatory and/or Out of Bed Yes REE-([facility]-ambulatory/OOB) [ 1983.957 NUTR.MSJOOB] Kcal/Kg value to use for calculation 35 Approximate Energy Requirements Using 2381 kcal/Kg Additional Notes Pro needs 1.25-1.5g/k- 102g/day Fluid needs 1ml/kcal Nutrition Intervention Nutrition Support: Continue PN at 83.33ml/hr: MVI , thiamine, 4.8% amino acids, 100mEq K, 0mmol Phos, 25%/75% chloride/acetate. Osmolality: 833. Kcal 720 Protein (gm) 95 Carbohydrates (gm) 100 Fat (gm) 0 Fluid (mL) 2,000 Fiber (gm) 0 Goal #1 PN to meet 90-100% energy and pro needs Goal #2 Wt maintenance and/or gain Anticipated Discharge Needs: Continue TPN if necessary Follow-Up By: 03/26/18 Additional Comments Labs in am: RAY, Mg, Sue
[2018-03-26] MEDS ORDERED: KCL 10MEQ/100ML 10 MEQ/100 ML BAG IV SCH (09:00)
[2018-03-26] MEDS: ZOSYN/NS 3.375GM/50ML 3.375 GM/50 ML BAG IV SCH (09:02)
[2018-03-26] MEDS: LOVENOX SUB-Q SCH (09:03)
--- NOTE | 2018-03-26 13:04 | Progress Note ---
Assessment and Plan Pt status quo. no compl. Dressings dry ET nurse evaluated pt and spoke with family about local wd and skin care surgically stable about to have CVP line inserted Home health arrangements being completed for home TPN for the next 3-6 wks. continue present care Selected Entries 03/26/18 03/26/18 03/26/18 07:50 08:00 10:00 Temperature 97.9 F Pulse Rate [ 64 Left Radial] O2 Sat by Pulse 97 Oximetry Blood Pressure 121/61 Laboratory Tests 03/26/18 Unknown Sodium 139 Potassium 4.2 D Chloride 103.4 Carbon Dioxide 23 Anion Gap 17 BUN 25 H Creatinine 1.0 Objective Vital Signs - 12hr 03/26/18 03/26/18 03/26/18 02:40 07:50 08:00 Temperature 98.7 F 97.9 F Pulse Rate 66 79 Pulse Rate [ 64 Left Radial] Respiratory 20 18 Rate Blood Pressure 121/61 Blood Pressure 102/49 [Left] O2 Sat by Pulse 100 100 100 Oximetry 03/26/18 10:00 Temperature Pulse Rate Pulse Rate [ Left Radial] Respiratory Rate Blood Pressure Blood Pressure [Left] O2 Sat by Pulse 97 Oximetry - Labs 03/24/18 05:02 03/26/18 Unknown Diabetes panel 03/26/18 Range/Units Unknown Sodium 139 (137-145) mmol/L Potassium 4.2 D (3.6-5.0) mmol/L Chloride 103.4 (98-107) mmol/L Carbon Dioxide 23 (22-30) mmol/L BUN 25 H (9-20) mg/dL Creatinine 1.0 (0.8-1.5) mg/dL Glucose 122 H (75-100) mg/dL Calcium 8.3 L (8.4-10.2) mg/dL Calcium panel 03/26/18 Range/Units Unknown Calcium 8.3 L (8.4-10.2) mg/dL Phosphorus 3.00 D (2.5-4.5) mg/dL Pituitary panel 03/26/18 Range/Units Unknown Sodium 139 (137-145) mmol/L Potassium 4.2 D (3.6-5.0) mmol/L Chloride 103.4 (98-107) mmol/L Carbon Dioxide 23 (22-30) mmol/L BUN 25 H (9-20) mg/dL Creatinine 1.0 (0.8-1.5) mg/dL Glucose 122 H (75-100) mg/dL Calcium 8.3 L (8.4-10.2) mg/dL Adrenal panel 03/26/18 Range/Units Unknown Sodium 139 (137-145) mmol/L Potassium 4.2 D (3.6-5.0) mmol/L Chloride 103.4 (98-107) mmol/L Carbon Dioxide 23 (22-30) mmol/L BUN 25 H (9-20) mg/dL Creatinine 1.0 (0.8-1.5) mg/dL Glucose 122 H (75-100) mg/dL Calcium 8.3 L (8.4-10.2) mg/dL
[2018-03-26] MEDS: ZOSYN/NS 4.5GM/100ML 4.5 GM/100 ML VIAL IV SCH ×2 (13:52→22:00)
[2018-03-26] MEDS ORDERED: TPN ADULT 1,999.92 ML IV SCH ×2 (20:00)
[2018-03-27] MEDS: ZOSYN/NS 4.5GM/100ML 4.5 GM/100 ML VIAL IV SCH ×3 (06:33→22:16)
[2018-03-27] MEDS: SODIUM CHLORIDE FLUSH SYRINGE 10 ML IV SCH ×3 (06:41→22:20)
[2018-03-27 06:44] LABS: BUN/Creatinine Ratio 31; Blood Urea Nitrogen 25 mg/dL (9-20); Calcium 8.3 mg/dL (8.4-10.2); Hemolysis Index 0
[2018-03-27] MEDS ORDERED: NACL 0.9% 250ML 250 ML ONE (12:02)
[2018-03-27] MEDS ORDERED: SUBLIMAZE ONE (12:02)
[2018-03-27] MEDS ORDERED: HEPARIN/NS 5000 UNIT/500ML(CATH LAB) 500 ML IR ONE (12:02)
[2018-03-27] MEDS ORDERED: VERSED ONE (12:02)
[2018-03-27] MEDS: XYLOCAINE 2% INFILTRATI ONE ×3 (12:15→12:32)
--- NOTE | 2018-03-27 12:41 | Operative Report ---
Operative Report Operative Report: Date of procedure: 03/27/2018 Pre-operative diagnosis: Need For long-term venous access Post-operative diagnosis: Same Procedure: 1. Ultrasound-guided access of left arm brachial vein 2. Placement of PICC line into the distal circulation via brachial vein access Surgeon: Jaxon Tracy MD, FSVS, FACS Anesthesia: Local with moderate sedation. Sedation start: 1223. Sedation end: 1234. Total sedation time: 11 minutes. Sedation units: 1 EBL: Minimal Operative indication: Patient is a 72-year-old man who needs chronic venous access. Findings: PICC line at the caval atrial junction. Both ports flush and aspirate well. Procedure description: Patient was placed on the table in supine position. Patient was given moderate sedation. The area over the left arm was prepped with ChloraPrep solution and draped in the usual sterile fashion. 2% lidocaine plain was used for local anesthesia. The basilic vein was identified in the upper arm on the left. The basilic vein was actually thrombosed. I attempted to cannulate it but was not successful. I identified a brachial vein branch in the mid upper arm and decided to use that. Micropuncture technique was used to enter the vein. The micro-sheath was placed and then a guidewire was passed into the central circulation. The distance on the guidewire was noted.. The PICC catheter was cut to that length. The peel-away sheath was placed over the guidewire into the basilar vein. The catheter was then placed over the guidewire into the central circulation. The peel-away sheath was removed. The catheter was placed to the tip was at the cavoatrial junction. Blood could be aspirated from the catheter. The catheter was then flushed with normal saline in both ports. The catheter was fixed fixed to the skin using the StatLock device. Sterile dressings were applied. The patient tolerated the procedure well.
--- NOTE | 2018-03-27 13:24 | Progress Note ---
Assessment and Plan Pt surgically stable. minimal drainage from fistula since placed npo. Dressings minimal greenish staining on gauze Abd soft surgically stable keep npo except for meds may d/c from surgical perspective once all home health arrangements in order rto Monday Selected Entries 03/27/18 07:39 Temperature 97.8 F Pulse Rate 82 Respiratory 18 Rate Laboratory Tests 03/27/18 05:45 Sodium 138 Potassium 5.0 Chloride 105.0 Carbon Dioxide 22 Anion Gap 16 BUN 25 H Creatinine 0.8 Objective Vital Signs - 12hr 03/27/18 03/27/18 03/27/18 03:23 07:39 10:58 Temperature 97.8 F 97.8 F Pulse Rate 66 82 Respiratory 18 18 Rate Blood Pressure 144/62 127/63 O2 Sat by Pulse 100 99 100 Oximetry - Labs 03/24/18 05:02 03/27/18 05:45 Diabetes panel 03/27/18 Range/Units 05:45 Sodium 138 (137-145) mmol/L Potassium 5.0 (3.6-5.0) mmol/L Chloride 105.0 (98-107) mmol/L Carbon Dioxide 22 (22-30) mmol/L BUN 25 H (9-20) mg/dL Creatinine 0.8 (0.8-1.5) mg/dL Glucose 107 H (75-100) mg/dL Calcium 8.3 L (8.4-10.2) mg/dL Triglycerides 106 (2-149) mg/dL Calcium panel 03/27/18 Range/Units 05:45 Calcium 8.3 L (8.4-10.2) mg/dL Phosphorus 3.00 (2.5-4.5) mg/dL Pituitary panel 03/27/18 Range/Units 05:45 Sodium 138 (137-145) mmol/L Potassium 5.0 (3.6-5.0) mmol/L Chloride 105.0 (98-107) mmol/L Carbon Dioxide 22 (22-30) mmol/L BUN 25 H (9-20) mg/dL Creatinine 0.8 (0.8-1.5) mg/dL Glucose 107 H (75-100) mg/dL Calcium 8.3 L (8.4-10.2) mg/dL Adrenal panel 03/27/18 Range/Units 05:45 Sodium 138 (137-145) mmol/L Potassium 5.0 (3.6-5.0) mmol/L Chloride 105.0 (98-107) mmol/L Carbon Dioxide 22 (22-30) mmol/L BUN 25 H (9-20) mg/dL Creatinine 0.8 (0.8-1.5) mg/dL Glucose 107 H (75-100) mg/dL Calcium 8.3 L (8.4-10.2) mg/dL
[2018-03-27] MEDS: LOVENOX SUB-Q SCH (14:53)
--- NOTE | 2018-03-27 14:59 | Discharge Summary ---
Providers - Providers Date of Admission: 03/24/18 03:38 Attending physician: FIOR POWELL MD 03/24/18 00:55 Consult to Physician [CONS] Routine Comment: called answ. serv./diana Consulting Provider: BEBE SHAFFER Physician Instructions: Reason For Exam: fistula 03/24/18 10:19 Consult to Wound/ET Nurse [CONS] Routine Reason For Exam: entero cutaneous fistula wd care 03/24/18 10:31 Physical Therapy Evaluation and Treat [CONS] Routine Comment: Reason For Exam: ambulate with assistance 03/24/18 10:32 Consult to Dietitian/Nutrition [CONS] Routine Physician Instructions: Reason For Exam: Reason for Consult: Write/Manage TPN/PPN Consult to PICC Line RN [CONS] Routine Reason For Exam: TPN Type Line:: PICC 03/26/18 08:38 Consult to Case Management [CONS] Routine Services Needed at Discharge: Employee Placement Specialist Notified:: POLO Jensen Physician Instructions: TPN OUTPATIENT 03/26/18 10:08 Consult to Interventional Radiology [CONS] Routine Consulting Provider: ANGELO TIMMONS Reason For Exam: central access for TPN, unable to get PICC Place consult to:: Notified:: Was contact made?: Yes If yes, spoke with:: LAURA De Guzman called:: 10:57 Comment:: HIMA Primary care physician: TANNER FIELDS Hospitalization Reason for admission: enterocutaneous fistula Condition: Stable Hospital course: 71-year-old man with a history of hypertension, diabetes, BPH, hyperlipidemia, status post surgery for perforated ulcer 2 comes to the emergency room because the area around his fistula has become red, has increase of fecal matter draining from from the fistula since . Spouse at bedside stated that the patient usually have drainage from the fistula, she's only had to change the dressing once to twice a day. However, since she has been doing dressing change every hour. Surgery evaluated the patient and he is according to surgery not a surgical candidate at this time. Will continue supportive care. TPN needed and to be managed outpatient by Surgery and home health. Awaiting PICC line. Patient will continue home activity as tolerated. Patient was seen by Surgery and they spoke that this is recurrent enterocutaneous fistula and is not a surgical candidiate and should be managed consveratively with NPO and keep the patient on TPN Discussed with surgeon and he can follow with patient outpatient PRN BUT advised patient of need for close follow up with PCP for electrolyte managment. Expected to be on TPN per surgeon for 3-6 weeks to see if fistula will heal. Patient obtained PICC Access with Vascular help on Left arm (1) Recurrent enterocutaneous fistula. (2) Anemia (3) Peptic ulcer with perforation (4) Hypokalmeia Disposition: DC/TX-06 HOME UNDER HOME [facility] Time spent for discharge: 35 mins Core Measure Documentation - Palliative Care Palliative Care/ Comfort Measures: Not Applicable - Core Measures Any of the following diagnoses?: none - VTE Discharge Requirements Deep Vein Thrombosis/Pulmonary Embolism Present on Admission: No Exam - Physical Exam Narrative exam: General appearance: Present: no acute distress - EENT Eyes: Present: PERRL, EOM intact ENT: hearing intact, clear oral mucosa, poor dentition, no dentition normal, no thrush - Neck Neck: Present: supple, normal ROM - Respiratory Respiratory effort: normal Respiratory: bilateral: CTA - Cardiovascular Rhythm: regular Heart Sounds: Present: S1 & S2 - Extremities Extremities: no ischemia, pulses intact, pulses symmetrical, No edema, normal temperature Peripheral Pulses: within normal limits - Abdominal General gastrointestinal: other (abdomen flat hypoactive bowel sounds. dressing in place, .) Localized gastrointestinal: tender: epigastric periumbilical - Integumentary Integumentary: Present: clear, warm, erythema. Absent: jaundice, rash, clammy, pale - Psychiatric Psychiatric: appropriate mood/affect, intact judgment & insight - Neurologic Neurologic: CNII-XII intact - Constitutional Vitals: Temp Pulse Resp BP Pulse Ox 97.5 F L 78 18 141/84 99 03/27/18 13:23 03/27/18 13:23 03/27/18 13:23 03/27/18 13:23 03/27/18 13:23 Plan Activity: advance as tolerated, fall precautions Diet: other (TPN only. No oral intake except meds with sips of water) Special Instructions: record daily weights, record daily BP diary Follow up with: TANNER FIELDS MD [Primary Care Provider] - 3-5 Days BEBE SHAFFER MD [Staff Physician] - 7 Days
--- NOTE | 2018-03-27 17:13 | Progress Note ---
Assessment and Plan Assessment and plan: 71-year-old man with a history of hypertension, diabetes, BPH, hyperlipidemia, status post surgery for perforated ulcer 2 comes to the emergency room because the area around his fistula has become red, has increase of fecal matter draining from from the fistula since . Spouse at bedside stated that the patient usually have drainage from the fistula, she's only had to change the dressing once to twice a day. However, since she has been doing dressing change every hour. Surgery evaluated the patient and he is according to surgery not a surgical candidate at this time. Will continue supportive care. TPN needed and to be managed outpatient by Surgery and home health. Awaiting PIC C line. Patient will continue home activity as tolerated. - Patient Problems (1) Abdominal wall fistula Current Visit: Yes Status: Acute Plan to address problem: Patient presents with recurrent enterocutaneous fistula. Spoke with surgery patient is no longer surgical candidate at this time. Treatment options now to continue local wound care and IV antibiotics. Patient will likely need extended course of by mouth antibiotics upon discharge and aggressive local wound care. Surgery following. ET nurse pending. Tolerating TPN. Per surgery will need TPN outpatient. CT scan concerning for mild constipation. Will recommend outpatient follow up with CT with surgeon Discussed with surgeon and he can follow with patient outpatient PRN BUT advised patient of need for close follow up with PCP for electrolyte managment. TPN FOR APPROX 90 DAYS (2) Anemia Current Visit: No Status: Acute (3) Peptic ulcer with perforation Current Visit: No Status: Acute Plan to address problem: stable no bleeding H and H stable. no pain (4) Hypokalmeia- Replaced. DVT/GI prophy Case management to evaluate for Rehab for physical optimization prior to discharge. History Interval history: Patient seen and examined. Family brought to hospital due to home RN noted stool in abdominal fistula. No new complaints, now on TPN and tolerating Hospitalist Physical - Physical exam Narrative exam: General appearance: Present: no acute distress - EENT Eyes: Present: PERRL, EOM intact ENT: hearing intact, clear oral mucosa, poor dentition, no dentition normal, no thrush - Neck Neck: Present: supple, normal ROM - Respiratory Respiratory effort: normal Respiratory: bilateral: CTA - Cardiovascular Rhythm: regular Heart Sounds: Present: S1 & S2 - Extremities Extremities: no ischemia, pulses intact, pulses symmetrical, No edema, normal t emperature Peripheral Pulses: within normal limits - Abdominal General gastrointestinal: other (abdomen flat hypoactive bowel sounds. dressing in place, .) Localized gastrointestinal: tender: epigastric periumbilical - Integumentary Integumentary: Present: clear, warm, erythema. Absent: jaundice, rash, clammy, pale - Psychiatric Psychiatric: appropriate mood/affect, intact judgment & insight - Neurologic Neurologic: CNII-XII intact - Constitutional Vitals: Temp Pulse Resp BP Pulse Ox 97.5 F L 78 18 141/84 99 03/27/18 13:23 03/27/18 13:23 03/27/18 13:23 03/27/18 13:23 03/27/18 13:23 General appearance: Present: no acute distress Results - Labs CBC & Chem 7: 03/24/18 05:02 03/27/18 05:45 Labs: Laboratory Last Values WBC 7.5 K/mm3 (4.5-11.0) 03/24/18 05:02 RBC 3.45 M/mm3 (3.65-5.03) L 03/24/18 05:02 Hgb 9.4 gm/dl (11.8-15.2) L 03/24/18 05:02 Hct 28.9 % (35.5-45.6) L 03/24/18 05:02 MCV 84 fl (84-94) 03/24/18 05:02 MCH 27 pg (28-32) L 03/24/18 05:02 MCHC 32 % (32-34) 03/24/18 05:02 RDW 19.9 % (13.2-15.2) H 03/24/18 05:02 Plt Count 391 K/mm3 (140-440) 03/24/18 05:02 Lymph % (Auto) 25.1 % (13.4-35.0) 03/24/18 05:02 Clarke % (Auto) 13.7 % (0.0-7.3) H 03/24/18 05:02 Eos % (Auto) 0.3 % (0.0-4.3) 03/24/18 05:02 Baso % (Auto) 0.2 % (0.0-1.8) 03/24/18 05:02 Lymph # 1.9 K/mm3 (1.2-5.4) 03/24/18 05:02 Clarke # 1.0 K/mm3 (0.0-0.8) H 03/24/18 05:02 Eos # 0.0 K/mm3 (0.0-0.4) 03/24/18 05:02 Baso # 0.0 K/mm3 (0.0-0.1) 03/24/18 05:02 Seg Neutrophils % 60.7 % (40.0-70.0) 03/24/18 05:02 Seg Neutrophils # 4.6 K/mm3 (1.8-7.7) 03/24/18 05:02 Sodium 138 mmol/L (137-145) 03/27/18 05:45 Potassium 5.0 mmol/L (3.6-5.0) 03/27/18 05:45 Chloride 105.0 mmol/L (98-107) 03/27/18 05:45 Carbon Dioxide 22 mmol/L (22-30) 03/27/18 05:45 Anion Gap 16 mmol/L 03/27/18 05:45 BUN 25 mg/dL (9-20) H 03/27/18 05:45 Creatinine 0.8 mg/dL (0.8-1.5) 03/27/18 05:45 Estimated GFR > 60 ml/min 03/27/18 05:45 BUN/Creatinine Ratio 31 % 03/27/18 05:45 Glucose 107 mg/dL (75-100) H 03/27/18 05:45 POC Glucose 104 (70-105) 03/27/18 00:28 Lactic Acid 1.20 mmol/L (0.7-2.0) 03/23/18 20:58 Calcium 8.3 mg/dL (8.4-10.2) L 03/27/18 05:45 Phosphorus 3.00 mg/dL (2.5-4.5) 03/27/18 05:45 Magnesium 2.20 mg/dL (1.7-2.3) 03/27/18 05:45 Total Bilirubin 1.00 mg/dL (0.1-1.2) 03/23/18 20:58 AST 14 units/L (5-40) 03/23/18 20:58 ALT 18 units/L (7-56) 03/23/18 20:58 Alkaline Phosphatase 75 units/L (35-129) 03/23/18 20:58 Total Protein 7.3 g/dL (6.3-8.2) 03/23/18 20:58 Albumin 3.1 g/dL (3.9-5) L 03/23/18 20:58 Albumin/Globulin Ratio 0.7 % 03/23/18 20:58 Triglycerides 106 mg/dL (2-149) 03/27/18 05:45 Nutrition/Malnutrition Assess - Dietary Evaluation Nutrition/Malnutrition Findings: Nutrition Notes Start: 03/24/18 13:07 Freq: Status: Active Protocol: Document 03/27/18 11:17 TW (Rec: 03/27/18 11:20 TW [id number]) Co-Sign 03/27/18 11:17 LP Nutrition Notes Initial or Follow up Reassessment Current Diagnosis Diabetes Other Pertinent Diagnosis Perforated abdominal ulcer Current Diet PPN at 83.33mL/hr Labs/Tests K: 5.0 BUN: 25 Pertinent Medications Reviewed Height 6 ft 4 in Weight 68.1 kg [place] Body Weight (lbs) 202.0 BMI 18.2 Subjective/Other Information Day 4 PPN. TPN running at goal rate. Percent of energy/protein needs met: 41%/100% Burn Absent Trauma Absent #2 Nutrition Diagnosis Malnutrition Diagnosis Progress(for reassessment Continues documentation) #1 Nutrition Diagnosis Altered GI function Diagnosis Progress(for reassessment Continues documentation) Is patient on ventilator? No Is Patient Ambulatory and/or Out of Bed Yes REE-([facility]-ambulatory/OOB) [ 1985.750 NUTR.[id number]] Kcal/Kg value to use for calculation 35 Approximate Energy Requirements Using 2384 kcal/Kg Additional Notes Pro needs 1.25-1.5g/k- 103g/day Fluid needs 1ml/kcal Nutrition Intervention Nutrition Support: Continue PN at 83.33mL/hr: MTE , MVI, 6.2 % dextrose, Na: 50 mEq Osmolarity: 891 Kcal 818 Protein (gm) 100 Carbohydrates (gm) 100 Fat (gm) 0 Fluid (mL) 2,000 Fiber (gm) 0 Goal #1 PN to meet 90-100% energy and pro needs Goal #2 Wt maintenance and/or gain Anticipated Discharge Needs: TPN Follow-Up By: 03/28/18 Additional Comments Labs in AM: Mg BELL Phos
[2018-03-27] MEDS ORDERED: TPN ADULT 1,999.92 ML IV SCH (20:00)
[2018-03-28] MEDS: ZOSYN/NS 4.5GM/100ML 4.5 GM/100 ML VIAL IV SCH (05:15)
[2018-03-28 06:12] LABS: BUN/Creatinine Ratio 31; Blood Urea Nitrogen 25 mg/dL (9-20); Calcium 8.3 mg/dL (8.4-10.2); Hemolysis Index 0
[2018-03-28 08:28] VITALS: BP 109/56
[2018-03-28] MEDS: SODIUM CHLORIDE FLUSH SYRINGE 10 ML IV SCH (09:03)
[2018-03-28] MEDS: LOVENOX SUB-Q SCH (09:03)
--- NOTE | 2018-03-28 09:17 | Progress Note ---
Assessment and Plan Pt feeling well. no compl. Abd soft. negligible drainage from fistula site surgically stable july d/c on home TPN from surg perspective. RTO this Monday Selected Entries 03/28/18 08:27 Temperature 98.3 F Pulse Rate 73 Respiratory 18 Rate Blood Pressure 109/56 [Left] Laboratory Tests 03/28/18 05:25 Sodium 136 L Potassium 4.9 Chloride 102.9 BUN 25 H Creatinine 0.8 Objective Vital Signs - 12hr 03/27/18 03/27/18 03/28/18 22:00 22:05 01:46 Temperature 98.1 F Pulse Rate 68 Respiratory 18 Rate Respiratory 20 Rate [Upper Medial Abdomen] Blood Pressure 148/58 Blood Pressure [Left] O2 Sat by Pulse 100 100 100 Oximetry 03/28/18 03/28/18 03/28/18 07:31 07:34 08:27 Temperature 98.2 F 98.0 F 98.3 F Pulse Rate 73 73 Respiratory 19 19 18 Rate Respiratory Rate [Upper Medial Abdomen] Blood Pressure 109/56 115/74 Blood Pressure 109/56 [Left] O2 Sat by Pulse 100 100 Oximetry 03/28/18 08:55 Temperature Pulse Rate Respiratory Rate Respiratory Rate [Upper Medial Abdomen] Blood Pressure Blood Pressure [Left] O2 Sat by Pulse 100 Oximetry - Labs 03/24/18 05:02 03/28/18 05:25 Diabetes panel 03/28/18 Range/Units 05:25 Sodium 136 L (137-145) mmol/L Potassium 4.9 (3.6-5.0) mmol/L Chloride 102.9 (98-107) mmol/L Carbon Dioxide 21 L (22-30) mmol/L BUN 25 H (9-20) mg/dL Creatinine 0.8 (0.8-1.5) mg/dL Glucose 105 H (75-100) mg/dL Calcium 8.3 L (8.4-10.2) mg/dL Calcium panel 03/28/18 Range/Units 05:25 Calcium 8.3 L (8.4-10.2) mg/dL Phosphorus 3.70 D (2.5-4.5) mg/dL Pituitary panel 03/28/18 Range/Units 05:25 Sodium 136 L (137-145) mmol/L Potassium 4.9 (3.6-5.0) mmol/L Chloride 102.9 (98-107) mmol/L Carbon Dioxide 21 L (22-30) mmol/L BUN 25 H (9-20) mg/dL Creatinine 0.8 (0.8-1.5) mg/dL Glucose 105 H (75-100) mg/dL Calcium 8.3 L (8.4-10.2) mg/dL Adrenal panel 03/28/18 Range/Units 05:25 Sodium 136 L (137-145) mmol/L Potassium 4.9 (3.6-5.0) mmol/L Chloride 102.9 (98-107) mmol/L Carbon Dioxide 21 L (22-30) mmol/L BUN 25 H (9-20) mg/dL Creatinine 0.8 (0.8-1.5) mg/dL Glucose 105 H (75-100) mg/dL Calcium 8.3 L (8.4-10.2) mg/dL
--- NOTE | 2018-03-28 09:36 | Discharge Summary ---
Providers - Providers Date of Admission: 03/24/18 03:38 Attending physician: FIOR POWELL MD 03/24/18 00:55 Consult to Physician [CONS] Routine Comment: called answ. serv./diana Consulting Provider: BEBE SHAFFER Physician Instructions: Reason For Exam: fistula 03/24/18 10:19 Consult to Wound/ET Nurse [CONS] Routine Reason For Exam: entero cutaneous fistula wd care 03/24/18 10:31 Physical Therapy Evaluation and Treat [CONS] Routine Comment: Reason For Exam: ambulate with assistance 03/24/18 10:32 Consult to Dietitian/Nutrition [CONS] Routine Physician Instructions: Reason For Exam: Reason for Consult: Write/Manage TPN/PPN Consult to PICC Line RN [CONS] Routine Reason For Exam: TPN Type Line:: PICC 03/26/18 08:38 Consult to Case Management [CONS] Routine Services Needed at Discharge: Support Services Manager Notified:: POLO Jensen Physician Instructions: TPN OUTPATIENT 03/26/18 10:08 Consult to Interventional Radiology [CONS] Routine Consulting Provider: ANGELO TIMMONS Reason For Exam: central access for TPN, unable to get PICC Place consult to:: Notified:: Was contact made?: Yes If yes, spoke with:: LAURA De Guzman called:: 10:57 Comment:: HIMA Primary care physician: TANNER FIELDS Hospitalization Reason for admission: entercoccus fistula Condition: Stable Hospital course: 71-year-old man with a history of hypertension, diabetes, BPH, hyperlipidemia, status post surgery for perforated ulcer 2 comes to the emergency room because the area around his fistula has become red, has increase of fecal matter draining from from the fistula since . Spouse at bedside stated that the patient usually have drainage from the fistula, she's only had to change the dressing once to twice a day. However, since she has been doing dressing change every hour. Surgery evaluated the patient and he is according to surgery not a surgical candidate at this time. Will continue supportive care. TPN needed and to be managed outpatient by Surgery and home health. Awaiting PICC line. Patient will continue home activity as tolerated. Patient was seen by Surgery and they spoke that this is recurrent enterocutaneous fistula and is not a surgical candidiate and should be managed consveratively with NPO and keep the patient on TPN Discussed with surgeon and h e can follow with patient outpatient PRN BUT advised patient of need for close follow up with PCP for electrolyte managment. Expected to be on TPN per surgeon for 3-6 weeks to see if fistula will heal. Patient obtained PICC Access with Vascular help on Left arm (1) Recurrent enterocutaneous fistula. (2) Anemia (3) Peptic ulcer with perforation (4) Hypokalmeia Disposition: DC/TX-06 HOME UNDER HOME [facility] Time spent for discharge: 35 mins Core Measure Documentation - Palliative Care Palliative Care/ Comfort Measures: Not Applicable - Core Measures Any of the following diagnoses?: none Exam - Physical Exam Narrative exam: General appearance: Present: no acute distress - EENT Eyes: Present: PERRL, EOM intact ENT: hearing intact, clear oral mucosa, poor dentition, no dentition normal, no thrush - Neck Neck: Present: supple, normal ROM - Respiratory Respiratory effort: normal Respiratory: bilateral: CTA - Cardiovascular Rhythm: regular Heart Sounds: Present: S1 & S2 - Extremities Extremities: no ischemia, pulses intact, pulses symmetrical, No edema, normal temperature Peripheral Pulses: within normal limits - Abdominal General gastrointestinal: other (abdomen flat hypoactive bowel sounds. dressing in place, .) Localized gastrointestinal: tender: epigastric periumbilical - Integumentary Integumentary: Present: clear, warm, erythema. Absent: jaundice, rash, clammy, pale - Psychiatric Psychiatric: appropriate mood/affect, intact judgment & insight - Neurologic Neurologic: CNII-XII intact - Constitutional Vitals: Temp Pulse Resp BP Pulse Ox 98.3 F 73 18 109/56 100 03/28/18 08:27 03/28/18 08:27 03/28/18 08:27 03/28/18 08:27 03/28/18 08:55 Plan Follow up with: BEBE SHAFFER MD [Staff Physician] - 7 Days TANNER FIELDS MD [Primary Care Provider] - 3-5 Days Prescriptions: Ciprofloxacin HCl [Ciprofloxacin TAB] 500 mg PO Q12H #14 tab metroNIDAZOLE [Flagyl] 500 mg PO Q8HR #20 tablet
== END 2018-03-28 10:05 | disposition home health service (06) | DRG 862 ==
LOC: ED 19:35 → 2B-ACE 03-24 03:38
PROVIDERS: ADMIT Internal Medicine; ATTEND Internal Medicine
PROC: 02HV33Z Insertion of Infusion Device into Superior Vena Cava, Percutaneous Approach (ICD-10-PCS; principal; 2018-03-27)
PROC: B548ZZA Ultrasonography of Superior Vena Cava, Guidance (ICD-10-PCS; 2018-03-27)
DX: T81.41XA Infection following a procedure, superficial incisional surgical site, initial encounter (principal); K27.1 Acute peptic ulcer, site unspecified, with perforation; E43 Unspecified severe protein-calorie malnutrition; K63.2 Fistula of intestine; Z68.1 Body mass index [BMI] 19.9 or less, adult; E11.9 Type 2 diabetes mellitus without complications; D64.9 Anemia, unspecified; E87.6 Hypokalemia; Z79.82 Long term (current) use of aspirin; I10 Essential (primary) hypertension; N40.0 Benign prostatic hyperplasia without lower urinary tract symptoms; E78.5 Hyperlipidemia, unspecified; Z82.49 Family history of ischemic heart disease and other diseases of the circulatory system; Y83.8 Other surgical procedures as the cause of abnormal reaction of the patient, or of later complication, without mention of misadventure at the time of the procedure; Y92.89 Other specified places as the place of occurrence of the external cause
CPT/HCPCS: 36415; 36569; 74177; 77001; 80048; 80053; 82140; 82962; 83735; 84100; 84478; 85025; 87116; 93005; 93010; 94760; 96365; 96366; G0378; C1751; J1644; J1650; J2150; J2250; J2270; J2543; J3010; J7030; J7050; Q9967

== ENCOUNTER 2018-04-10 14:09 | Outpatient (CLI) | payer MEDICARE ==
[2018-04-10 14:21] LABS: Basophils % (Auto) 0.8 % (0.0-1.8); Eosinophils # (Auto) 0.1 K/mm3 (0.0-0.4); Eosinophils % (Auto) 1.2 % (0.0-4.3); Hematocrit 24.1 % (35.5-45.6); Hemoglobin 8.3 gm/dl (11.8-15.2); Lymphocytes # (Auto) 1.3 K/mm3 (1.2-5.4); Lymphocytes % (Auto) 22.8 % (13.4-35.0); Mean Corpuscular HGB Conc 35 % (32-34); Mean Corpuscular Volume 84 fl (84-94); Monocytes # (Auto) 0.6 K/mm3 (0.0-0.8); Platelet Count 283 K/mm3 (140-440); Red Blood Count 2.87 M/mm3 (3.65-5.03); Red Cell Distribution Width 17.4 % (13.2-15.2)
[2018-04-10 14:53] LABS: Albumin 2.4 g/dL (3.9-5); BUN/Creatinine Ratio 42; Blood Urea Nitrogen 38 mg/dL (9-20); Calcium 8.2 mg/dL (8.4-10.2); Hemolysis Index 18
[2018-04-10 15:11] LABS: Alanine Aminotransferase 51 units/L (7-56)
== END 2018-04-10 14:10 | disposition home or self-care (01) ==
LOC: LABHHL 14:09
PROVIDERS: ATTEND Surgery
DX: K63.2 Fistula of intestine (principal); I10 Essential (primary) hypertension; E11.9 Type 2 diabetes mellitus without complications
CPT/HCPCS: 36415; 80053; 83735; 84100; 84134; 84478; 85025

== ENCOUNTER 2018-05-05 21:11 | Emergency (ER) | payer MEDICARE ==
[2018-05-06 00:53] LABS: Basophils % (Auto) 0.2 % (0.0-1.8); Hematocrit 26.1 % (35.5-45.6); Hemoglobin 8.7 gm/dl (11.8-15.2); Lymphocytes # (Auto) 0.9 K/mm3 (1.2-5.4); Lymphocytes % (Auto) 8.3 % (13.4-35.0); Mean Corpuscular HGB Conc 33 % (32-34); Mean Corpuscular Volume 81 fl (84-94); Monocytes # (Auto) 1.2 K/mm3 (0.0-0.8); Monocytes % (Auto) 11.2 % (0.0-7.3); Platelet Count 234 K/mm3 (140-440); Red Blood Count 3.22 M/mm3 (3.65-5.03); Red Cell Distribution Width 16.3 % (13.2-15.2)
--- NOTE | 2018-05-06 01:09 | Emergency Department Report ---
ED General Adult HPI - General Chief complaint: Fever Stated complaint: FEVER Time Seen by Provider: 05/06/18 00:40 Source: patient, family Mode of arrival: Ambulatory Limitations: No Limitations - History of Present Illness Initial comments: Patient is a 72 year old male past medical history of peptic ulcer who presents with fever and chills have been going on intermittently for the last week. Patient is currently afebrile emergency department patient's talk with any pain but per her his they want to get "checked out just to make sure if anything is wrong" patient's MAXIMUM TEMPERATURE was 100F at home. Severity scale (0 -10): 0 - Related Data Home Medications Medication Instructions Recorded Confirmed Last Taken Aspirin [Aspirin BABY CHEW TAB] 81 mg PO QDAY 03/24/18 03/24/18 Unknown Atorvastatin Calcium 80 mg PO QDAY 03/24/18 03/24/18 Unknown Cholecalciferol (Vitamin D3) 1,000 unit PO QDAY 03/24/18 03/24/18 Unknown [Vitamin D3] Finasteride [Proscar] 5 mg PO QDAY 03/24/18 03/24/18 Unknown Tamsulosin HCl [Flomax] 0.4 mg PO QDAY 03/24/18 03/24/18 Unknown hydroCHLOROthiazide 25 mg PO QAM 03/24/18 03/24/18 Unknown [Hydrochlorothiazide] Previous Rx's Medication Instructions Recorded Last Taken Type Multivitamin Tab [Multiple Vitamin 1 each PO QDAY #30 tablet 12/25/17 Unknown Rx TAB (Theragran)] Pantoprazole [Protonix TAB] 40 mg PO DAILY #30 tablet 12/25/17 Unknown Rx Ciprofloxacin HCl [Ciprofloxacin 500 mg PO Q12H #14 tab 03/27/18 Unknown Rx TAB] Total Parenteral Nutrition [TPN See Protocol IV DAILY@1999 30 Days 03/27/18 Unknown Rx Adult] ml metroNIDAZOLE [Flagyl] 500 mg PO Q8HR #20 tablet 03/27/18 Unknown Rx Allergies Allergy/AdvReac Type Severity Reaction Status Date / Time No Known Allergies Allergy Verified 03/23/18 19:44 ED Review of Systems ROS: Stated complaint: FEVER Other details as noted in HPI Constitutional: denies: chills, fever Eyes: denies: eye pain, eye discharge, vision change ENT: denies: ear pain, throat pain Respiratory: denies: cough, shortness of breath, wheezing Cardiovascular: denies: chest pain, palpitations Endocrine: no symptoms reported Gastrointestinal: denies: abdominal pain, nausea, diarrhea Genitourinary: denies: urgency, dysuria Musculoskeletal: denies: back pain, joint swelling, arthralgia Skin: denies: rash, lesions Neurological: denies: headache, weakness, paresthesias Psychiatric: denies: anxiety, depression Hematological/Lymphatic: denies: easy bleeding, easy bruising ED Past Medical Hx - Past Medical History Previous Medical History?: Yes Hx Hypertension: Yes Hx Diabetes: Yes Hx Deep Vein Thrombosis: No Additional medical history: high cholesterol, abdominal fistula - Surgical History Past Surgical History?: Yes Hx Pacemaker: No Hx Internal Defibrillator: No Additional Surgical History: scrotum and penis, perforated ulcer - Social History Smoking Status: Former Smoker Substance Use Type: None - Medications Home Medications: Home Medications Medication Instructions Recorded Confirmed Last Taken Type Multivitamin Tab [Multiple Vitamin 1 each PO QDAY #30 tablet 12/25/17 03/24/18 Unknown Rx TAB (Theragran)] Pantoprazole [Protonix TAB] 40 mg PO DAILY #30 tablet 12/25/17 03/24/18 Unknown Rx Aspirin [Aspirin BABY CHEW TAB] 81 mg PO QDAY 03/24/18 03/24/18 Unknown History Atorvastatin Calcium 80 mg PO QDAY 03/24/18 03/24/18 Unknown History Cholecalciferol (Vitamin D3) 1,000 unit PO QDAY 03/24/18 03/24/18 Unknown History [Vitamin D3] Finasteride [Proscar] 5 mg PO QDAY 03/24/18 03/24/18 Unknown History Tamsulosin HCl [Flomax] 0.4 mg PO QDAY 03/24/18 03/24/18 Unknown History hydroCHLOROthiazide 25 mg PO QAM 03/24/18 03/24/18 Unknown History [Hydrochlorothiazide] Ciprofloxacin HCl [Ciprofloxacin 500 mg PO Q12H #14 tab 03/27/18 Unknown Rx TAB] Total Parenteral Nutrition [TPN See Protocol IV DAILY@1999 30 Days 03/27/18 Unknown Rx Adult] ml metroNIDAZOLE [Flagyl] 500 mg PO Q8HR #20 tablet 03/27/18 Unknown Rx ED Physical Exam - General Limitations: No Limitations General appearance: alert, in no apparent distress - Head Head exam: Present: atraumatic, normocephalic - Eye Eye exam: Present: normal appearance - ENT ENT exam: Present: mucous membranes moist - Neck Neck exam: Present: normal inspection - Respiratory Respiratory exam: Present: normal lung sounds bilaterally. Absent: respiratory distress - Cardiovascular Cardiovascular Exam: Present: regular rate, normal rhythm. Absent: systolic murmur, diastolic murmur, rubs, gallop - GI/Abdominal GI/Abdominal exam: Present: soft, normal bowel sounds - Rectal Rectal exam: Present: deferred - Extremities Exam Extremities exam: Present: normal inspection - Back Exam Back exam: Present: normal inspection - Neurological Exam Neurological exam: Present: alert, oriented X3 - Psychiatric Psychiatric exam: Present: normal affect, normal mood - Skin Skin exam: Present: warm, dry, intact, normal color. Absent: rash ED Course Vital Signs 05/05/18 05/05/18 05/06/18 21:20 21:53 01:00 Temperature 98.1 F 98.3 F Pulse Rate 114 H 111 H 94 H Respiratory 18 18 14 Rate Blood Pressure 107/55 101/52 139/57 O2 Sat by Pulse 100 99 99 Oximetry 05/06/18 05/06/18 05/06/18 02:00 02:31 03:00 Temperature Pulse Rate 86 83 83 Respiratory 18 17 16 Rate Blood Pressure 123/53 123/53 123/53 O2 Sat by Pulse 99 98 100 Oximetry ED Medical Decision Making - Lab Data Result diagrams: 05/05/18 00:42 05/05/18 00:42 Lab Results 05/05/18 05/05/18 05/05/18 Range/Units 00:42 00:42 Unknown WBC 10.6 (4.5-11.0) K/mm3 RBC 3.22 L (3.65-5.03) M/mm3 Hgb 8.7 L (11.8-15.2) gm/dl Hct 26.1 L (35.5-45.6) % MCV 81 L (84-94) fl MCH 27 L (28-32) pg MCHC 33 (32-34) % RDW 16.3 H (13.2-15.2) % Plt Count 234 (140-440) K/mm3 Lymph % (Auto) 8.3 L (13.4-35.0) % [place] % (Auto) 11.2 H (0.0-7.3) % Eos % (Auto) 0.0 (0.0-4.3) % Baso % (Auto) 0.2 (0.0-1.8) % Lymph # 0.9 L (1.2-5.4) K/mm3 [place] # 1.2 H (0.0-0.8) K/mm3 Eos # 0.0 (0.0-0.4) K/mm3 Baso # 0.0 (0.0-0.1) K/mm3 Seg Neutrophils % 80.3 H (40.0-70.0) % Seg Neutrophils # 8.5 H (1.8-7.7) K/mm3 Sodium 141 (137-145) mmol/L Potassium 2.5 L* (3.6-5.0) mmol/L Chloride 100.1 (98-107) mmol/L Carbon Dioxide 26 (22-30) mmol/L Anion Gap 17 mmol/L BUN 34 H (9-20) mg/dL Creatinine 1.1 D (0.8-1.5) mg/dL Estimated GFR > 60 ml/min BUN/Creatinine Ratio 31 % Glucose 178 H (75-100) mg/dL Calcium 7.9 L (8.4-10.2) mg/dL Total Bilirubin 0.90 (0.1-1.2) mg/dL AST 62 H (5-40) units/L ALT 126 H (7-56) units/L Alkaline Phosphatase 144 H (35-129) units/L Total Protein 6.0 L (6.3-8.2) g/dL Albumin 2.0 L (3.9-5) g/dL Albumin/Globulin Ratio 0.5 % Urine Color Yellow (Yellow) Urine Turbidity Slightly-cloudy (Clear) Urine pH 5.0 (5.0-7.0) Ur Specific [place] 1.018 (1.003-1.030) Urine Protein 30 mg/dl (Negative) mg/dL Urine Glucose (UA) Neg (Negative) mg/dL Urine Ketones Neg (Negative) mg/dL Urine Blood Neg (Negative) Urine Nitrite Neg (Negative) Urine Bilirubin Neg (Negative) Urine Urobilinogen < 2.0 (<2.0) mg/dL Ur Leukocyte Esterase Sm (Negative) Urine WBC (Auto) 9.0 H (0.0-6.0) /HPF Urine RBC (Auto) 4.0 (0.0-6.0) /HPF U Epithel Cells (Auto) 1.0 (0-13.0) /HPF Urine Bacteria (Auto) 4+ (Negative) /HPF Urine Mucus Few /HPF - Medical Decision Making Cdx: Hypokalemia ddx: PNA, UTI I will get cxr, cbc, bmp, I will replace his potassium and his magnesium and will have patient f/u with h is primary care doctor. Critical care attestation.: If time is entered above; I have spent that time in minutes in the direct care of this critically ill patient, excluding procedure time. ED Disposition Clinical Impression: Hypokalemia Fever Qualifiers: Fever type: unspecified Qualified Code(s): R50.9 - Fever, unspecified Disposition: DC-01 TO HOME OR SELFCARE Is pt being admited?: No Does the pt Need Aspirin: No Condition: Stable Instructions: Hypokalemia (ED) Referrals: KAROLYN MOLINA MD [Staff Physician] - 3-5 Days
[2018-05-06 01:21] LABS: Alanine Aminotransferase 126 units/L (7-56); BUN/Creatinine Ratio 31; Blood Urea Nitrogen 34 mg/dL (9-20); Calcium 7.9 mg/dL (8.4-10.2); Hemolysis Index 9
--- NOTE | 2018-05-06 01:31 | XRay Report ---
PROCEDURE: XR CHEST 1V AP TECHNIQUE: Chest radiograph single view. HISTORY: fever COMPARISONS: None . FINDINGS: Heart: Normal. Mediastinum/Vessels: Normal. Lungs/Pleural space: Normal. Bony thorax: No acute osseous abnormality. Life support devices: None. IMPRESSION: No acute cardiopulmonary abnormality. This document is electronically signed by Jessica Bearden DO., May 06 2018 01:28:42 AM ET
[2018-05-06] MEDS ORDERED: MAGNESIUM SULFATE 1 GM in NACL 0.9% 50 ML IV ONE (01:41)
[2018-05-06] MEDS: KCL 10MEQ/100ML 10 MEQ/100 ML BAG IV SCH ×2 (02:28→03:32)
[2018-05-06 04:11] LABS: Bacteria,Urine 4+ /HPF (Negative); Bilirubin,Urine NEG (Negative); Blood,Urine NEG (Negative); Color,Urine Yellow (Yellow); Mucus,Urine FEW /HPF; Urobilinogen,Urine < 2.0 mg/dL (<2.0)
[2018-05-06 04:59] VITALS: BP 139/63
== END 2018-05-06 04:59 | disposition home or self-care (01) ==
LOC: ED 21:11
DX: E87.6 Hypokalemia (principal); I10 Essential (primary) hypertension; E11.9 Type 2 diabetes mellitus without complications; E78.00 Pure hypercholesterolemia, unspecified; Z87.891 Personal history of nicotine dependence; Z79.82 Long term (current) use of aspirin
CPT/HCPCS: 36415; 71045; 80053; 81001; 85025; 96365; 96366; 96368; 99284; J3475; J3480

== ENCOUNTER 2018-05-16 11:17 | Inpatient (IN) | payer MEDICARE ==
[2018-05-16] MEDS ORDERED: NACL 0.9% 1000 ML IV ONE (11:30)
[2018-05-16] MEDS ORDERED: VANCOMYCIN 1,000 MG in NACL 0.9% 500 ML 500 ML IV ONE (11:30)
[2018-05-16] MEDS ORDERED: TYLENOL PR ONE (11:32)
--- NOTE | 2018-05-16 11:34 | Emergency Department Report ---
ED General Adult HPI - General Chief complaint: Weakness Stated complaint: POSS SEPSIS Time Seen by Provider: 05/16/18 11:27 Source: patient, family, EMS (verbal report received from EMS.ems notes not available at time of chart dictation), RN notes reviewed, old records reviewed Mode of arrival: Stretcher Limitations: Altered Mental Status - History of Present Illness Initial comments: This is a 72-year-old gentleman. Past medical history includes hypertension, diabetes, BPH, hyperlipidemia, perforated ulcer 2, enterocutaneous fistula, currently receiving Parenteral nutrition. He is accompanied by his significant other. His significant other indicates the patient has been weak, having fevers, chills, and appears to be lethargic. Symptoms present for the past 36 hours. The symptoms appear to be constant. They do not radiate anywhere. They do not have exacerbating or relieving factors. In the emergency room, the patient is disoriented, but cooperative, moves 4 extremities spontaneously and to command, and will answer some simple ye s no questions. However, he is not able to answer open-ended questions. As per review of old medical records, patient was evaluated in this department on May 06, for "fevers", found to have a low-grade temperature of 99, and was otherwise discharged with instructions to follow up with primary care. As per EMS and family, there is no history of trauma. -: Gradual Consistency: constant Improves with: none Worsens with: none Associated Symptoms: confusion, malaise, weakness - Related Data Home Medications Medication Instructions Recorded Confirmed Last Taken Atorvastatin Calcium 80 mg PO QDAY 03/24/18 05/16/18 Unknown Cholecalciferol (Vitamin D3) 1,000 unit PO QDAY 03/24/18 05/16/18 Unknown [Vitamin D3] Finasteride [Proscar] 5 mg PO QDAY 03/24/18 05/16/18 Unknown Tamsulosin HCl [Flomax] 0.4 mg PO BID 03/24/18 05/16/18 Unknown Ciprofloxacin HCl [Ciprofloxacin 500 mg PO BID 05/16/18 05/16/18 Unknown TAB] Sodium Bicarbonate 650 mg PO BID 05/16/18 05/16/18 Unknown hydroCHLOROthiazide [HCTZ] 25 mg PO QAM 05/16/18 05/16/18 Unknown Previous Rx's Medication Instructions Recorded Last Taken Type Multivitamin Tab [Multiple Vitamin 1 each PO QDAY #30 tablet 12/25/17 Unknown Rx TAB (Theragran)] Pantoprazole [Protonix TAB] 40 mg PO DAILY #30 tablet 12/25/17 Unknown Rx Total Parenteral Nutrition [TPN See Protocol IV DAILY@1999 30 Days 03/27/18 Unknown Rx Adult] ml Allergies Allergy/AdvReac Type Severity Reaction Status Date / Time No Known Allergies Allergy Verified 03/23/18 19:44 ED Review of Systems ROS: Stated complaint: POSS SEPSIS Other details as noted in HPI Comment: Unobtainable due to pts medical conditions Constitutional: chills, fever, malaise, weakness Cardiovascular: denies: syncope Gastrointestinal: denies: nausea, vomiting Neurological: weakness, confusion ED Past Medical Hx - Past Medical History Hx Hypertension: Yes Hx Diabetes: Yes Hx Deep Vein Thrombosis: No Additional medical history: high cholesterol, abdominal fistula - Surgical History Hx Pacemaker: No Hx Internal Defibrillator: No Additional Surgical History: scrotum and penis, perforated ulcer - Social History Smoking Status: Former Smoker Substance Use Type: None - Medications Home Medications: Home Medications Medication Instructions Recorded Confirmed Last Taken Type Multivitamin Tab [Multiple Vitamin 1 each PO QDAY #30 tablet 12/25/17 05/16/18 Unknown Rx TAB (Theragran)] Pantoprazole [Protonix TAB] 40 mg PO DAILY #30 tablet 12/25/17 05/16/18 Unknown Rx Atorvastatin Calcium 80 mg PO QDAY 03/24/18 05/16/18 Unknown History Cholecalciferol (Vitamin D3) 1,000 unit PO QDAY 03/24/18 05/16/18 Unknown History [Vitamin D3] Finasteride [Proscar] 5 mg PO QDAY 03/24/18 05/16/18 Unknown History Tamsulosin HCl [Flomax] 0.4 mg PO BID 03/24/18 05/16/18 Unknown History Total Parenteral Nutrition [TPN See Protocol IV DAILY@1999 30 Days 03/27/18 05/16/18 Unknown Rx Adult] ml Ciprofloxacin HCl [Ciprofloxacin 500 mg PO BID 05/16/18 05/16/18 Unknown History TAB] Sodium Bicarbonate 650 mg PO BID 05/16/18 05/16/18 Unknown History hydroCHLOROthiazide [HCTZ] 25 mg PO QAM 05/16/18 05/16/18 Unknown History ED Physical Exam - General Limitations: Altered Mental Status General appearance: lethargic - Head Head exam: Present: atraumatic, normocephalic - Eye Eye exam: Present: normal appearance, EOMI. Absent: nystagmus - ENT ENT exam: Present: mucous membranes dry - Neck Neck exam: Present: normal inspection, full ROM. Absent: tenderness, meningismus - Respiratory Respiratory exam: Present: normal lung sounds bilaterally. Absent: respiratory distress - Cardiovascular Cardiovascular Exam: Present: normal rhythm, tachycardia, normal heart sounds. Absent: systolic murmur, diastolic murmur, rubs, gallop - GI/Abdominal GI/Abdominal exam: Present: soft. Absent: distended, tenderness, guarding, rebound, rigid, pulsatile mass - Rectal Rectal exam: Present: deferred - Extremities Exam Extremities exam: Present: normal inspection (there is a PICC line noted in the left upper extremity, with no redness, pus or streaking), full ROM, other (2+ pulses noted in the bilateral upper, lower extremities. Compartments soft. No long bony tenderness. The pelvis is stable.). Absent: pedal edema, joint swelling, calf tenderness - Back Exam Back exam: Present: normal inspection, full ROM. Absent: tenderness, CVA tenderness (R), paraspinal tenderness, vertebral tenderness - Neurological Exam Neurological exam: Present: alert, other (patient moving 4 extremities spontaneously and to command. There is no facial droop. Sensation intact to light touch in 4 extremities.) - Psychiatric Psychiatric exam: Present: depressed - Skin Skin exam: Present: warm, dry, intact, normal color. Absent: rash ED Course Vital Signs 05/16/18 05/16/18 05/16/18 11:49 11:50 12:00 Temperature 101.5 F H Pulse Rate 121 H Respiratory 18 17 Rate Blood Pressure 164/77 O2 Sat by Pulse 100 Oximetry 05/16/18 05/16/18 05/16/18 12:15 12:30 12:45 Temperature Pulse Rate 127 H 125 H 123 H Respiratory 17 19 18 Rate Blood Pressure 173/77 163/78 138/64 O2 Sat by Pulse 87 100 100 Oximetry 05/16/18 05/16/18 05/16/18 13:00 13:15 13:30 Temperature Pulse Rate 121 H Respiratory 16 Rate Blood Pressure 132/63 141/64 135/63 O2 Sat by Pulse 100 100 99 Oximetry 05/16/18 05/16/1819 13:52 14:00 14:16 Temperature Pulse Rate 122 H 115 H 115 H Respiratory 13 18 16 Rate Blood Pressure 135/63 135/63 135/63 O2 Sat by Pulse Oximetry 05/16/18 05/16/18 05/16/18 14:30 14:45 15:00 Temperature Pulse Rate 116 H 114 H 115 H Respiratory 18 19 16 Rate Blood Pressure 135/63 151/69 141/64 O2 Sat by Pulse 100 100 Oximetry 05/16/18 05/16/18 05/16/18 15:15 15:30 15:46 Temperature Pulse Rate 117 H 117 H 125 H Respiratory 16 18 21 Rate Blood Pressure 156/76 159/71 172/82 O2 Sat by Pulse 100 100 100 Oximetry 05/16/18 05/16/18 05/16/18 16:00 16:15 16:30 Temperature Pulse Rate 124 H 130 H 131 H Respiratory 21 24 24 Rate Blood Pressure 170/85 183/77 173/79 O2 Sat by Pulse 100 100 99 Oximetry 05/16/18 05/16/18 05/16/18 16:45 17:00 17:15 Temperature Pulse Rate 126 H 124 H 124 H Respiratory 21 20 16 Rate Blood Pressure 156/67 157/69 137/60 O2 Sat by Pulse 99 100 98 Oximetry 05/16/18 05/16/18 05/16/18 17:30 17:45 18:00 Temperature Pulse Rate 127 H 118 H 117 H Respiratory 16 20 19 Rate Blood Pressure 134/89 150/62 139/59 O2 Sat by Pulse 100 100 98 Oximetry 05/16/18 05/16/18 05/16/18 18:15 18:30 18:45 Temperature Pulse Rate 119 H 116 H 109 H Respiratory 15 19 18 Rate Blood Pressure 136/64 119/60 119/51 O2 Sat by Pulse 98 98 Oximetry 05/16/18 05/16/18 05/16/18 19:00 19:15 19:30 Temperature Pulse Rate 109 H 107 H 104 H Respiratory 19 18 19 Rate Blood Pressure 114/55 120/57 121/57 O2 Sat by Pulse 98 98 98 Oximetry 05/16/18 05/16/18 05/16/18 19:45 20:00 20:15 Temperature Pulse Rate 104 H 104 H 102 H Respiratory 18 14 14 Rate Blood Pressure 113/52 117/51 119/52 O2 Sat by Pulse 99 98 100 Oximetry 05/16/18 05/16/18 05/16/18 20:30 20:45 21:00 Temperature Pulse Rate 103 H 97 H 96 H Respiratory 15 15 15 Rate Blood Pressure 106/53 110/55 109/52 O2 Sat by Pulse 99 99 99 Oximetry 05/16/18 05/16/18 21:15 21:30 Temperature Pulse Rate 98 H 98 H Respiratory 15 14 Rate Blood Pressure 106/53 108/56 O2 Sat by Pulse 99 100 Oximetry - Reevaluation(s) Reevaluation #1: 05/16/18 12:45 Differential diagnosis, including but not limited to: Bacteremia, viremia, line sepsis, pneumonia, urinary tract infection Assessment and plan: 72-year-old gentleman with obvious sepsis, manifest by a diminished mental status, transaminitis, tachycardia, fever. Patient was evaluated in this emergency room 10 days ago for insidious fever complaints. I have a high suspicion for line sepsis. Will start IV fluids, broad-spectrum antibiotics, obtain peripheral blood cultures, blood cultures from the PICC line, a noncontrast CT scan of the brain, abdomen, pelvis, and admitted to the medical service. Reevaluation #2: 05/16/18 13:25 left EJ placed d/w Dr Tracy, vascular surgery, who will evaluate \\ recommends line not be d/c-ed at this time Reevaluation #3: 05/16/18 14:57 CT scan of the brain negative for acute disease. CT scan of the abdomen, pelvis negative for acute disease. Mental status improving, moving 4 extremities spontaneously, IV fluids infusing at this time, heart rate at 115 bpm. Appears to be clinically improving. Hospital services paged to arrange admission. Reevaluation #4: 05/16/18 15:18 Dr Saul Richardson accepts to the medical service - EJ/Peripheral Line Neck L Time Out Performed: Yes Indications: nurses unable to establis Skin Cleansed in Sterile Fashion: Yes Size: 18 Dressing Placed: Tegaderm Patient Tolerated Procedure: well ED Medical Decision Making - Lab Data Result diagrams: 05/22/18 09:38 05/22/18 09:38 Vital Signs 05/16/18 05/16/18 05/16/18 11:49 11:50 12:00 Temperature 101.5 F H Pulse Rate 121 H Respiratory 18 17 Rate Blood Pressure 164/77 O2 Sat by Pulse 100 Oximetry Lab Results 05/16/18 05/16/18 05/16/18 Range/Units 11:39 11:39 11:39 WBC 11.4 H (4.5-11.0) K/mm3 RBC 3.33 L (3.65-5.03) M/mm3 Hgb 8.7 L (11.8-15.2) gm/dl Hct 26.6 L (35.5-45.6) % MCV 80 L (84-94) fl MCH 26 L (28-32) pg MCHC 33 (32-34) % RDW 16.5 H (13.2-15.2) % Plt Count 308 (140-440) K/mm3 Lymph % (Auto) 12.4 L (13.4-35.0) % [place] % (Auto) 7.4 H (0.0-7.3) % Eos % (Auto) 0.1 (0.0-4.3) % Baso % (Auto) 0.2 (0.0-1.8) % Lymph # 1.4 (1.2-5.4) K/mm3 [place] # 0.8 (0.0-0.8) K/mm3 Eos # 0.0 (0.0-0.4) K/mm3 Baso # 0.0 (0.0-0.1) K/mm3 Seg Neutrophils % 79.9 H (40.0-70.0) % Seg Neutrophils # 9.1 H (1.8-7.7) K/mm3 PT 15.6 H (12.2-14.9) Sec. INR 1.17 H (0.87-1.13) APTT 31.4 (24.2-36.6) Sec. Sodium 139 (137-145) mmol/L Potassium 3.9 (3.6-5.0) mmol/L Chloride 106.8 (98-107) mmol/L Carbon Dioxide 22 (22-30) mmol/L Anion Gap 14 mmol/L BUN 27 H (9-20) mg/dL Creatinine 1.1 (0.8-1.5) mg/dL Estimated GFR > 60 ml/min BUN/Creatinine Ratio 25 % Glucose 114 H (75-100) mg/dL Calcium 7.9 L (8.4-10.2) mg/dL Magnesium (1.7-2.3) mg/dL Total Bilirubin 0.90 (0.1-1.2) mg/dL AST 241 H (5-40) units/L ALT 438 H (7-56) units/L Alkaline Phosphatase 240 H (35-129) units/L Total Creatine Kinase (55-170) units/L Troponin T (0.00-0.029) ng/mL Total Protein 6.2 L (6.3-8.2) g/dL Albumin 2.0 L (3.9-5) g/dL Albumin/Globulin Ratio 0.5 % 05/16/18 05/16/18 Range/Units 11:39 11:39 WBC (4.5-11.0) K/mm3 RBC (3.65-5.03) M/mm3 Hgb (11.8-15.2) gm/dl Hct (35.5-45.6) % MCV (84-94) fl MCH (28-32) pg MCHC (32-34) % RDW (13.2-15.2) % Plt Count (140-440) K/mm3 Lymph % (Auto) (13.4-35.0) % [place] % (Auto) (0.0-7.3) % Eos % (Auto) (0.0-4.3) % Baso % (Auto) (0.0-1.8) % Lymph # (1.2-5.4) K/mm3 [place] # (0.0-0.8) K/mm3 Eos # (0.0-0.4) K/mm3 Baso # (0.0-0.1) K/mm3 Seg Neutrophils % (40.0-70.0) % Seg Neutrophils # (1.8-7.7) K/mm3 PT (12.2-14.9) Sec. INR (0.87-1.13) APTT (24.2-36.6) Sec. Sodium (137-145) mmol/L Potassium (3.6-5.0) mmol/L Chloride (98-107) mmol/L Carbon Dioxide (22-30) mmol/L Anion Gap mmol/L BUN (9-20) mg/dL Creatinine (0.8-1.5) mg/dL Estimated GFR ml/min BUN/Creatinine Ratio % Glucose (75-100) mg/dL Calcium (8.4-10.2) mg/dL Magnesium 1.70 (1.7-2.3) mg/dL Total Bilirubin (0.1-1.2) mg/dL AST (5-40) units/L ALT (7-56) units/L Alkaline Phosphatase (35-129) units/L Total Creatine Kinase 43 L (55-170) units/L Troponin T < 0.010 (0.00-0.029) ng/mL Total Protein (6.3-8.2) g/dL Albumin (3.9-5) g/dL Albumin/Globulin Ratio % - EKG Data -: EKG Interpreted by Me Rate: tachycardia - EKG Data 05/16/18 12:47 Sinus tachycardia, 127 beats per minute, motion artifact, atrial enlargement, borderline left axis deviation, QTC 445 ms, abnormal EKG, not consistent with ST elevation myocardial infarction. - Radiology Data Radiology results: pending, report reviewed, image reviewed X-ray of the chest is negative for acute disease. PICC line is noted to be in place. Critical Care Time: Yes Critical care time in (mins) excluding proc time.: 45 Critical care attestation.: If time is entered above; I have spent that time in minutes in the direct care of this critically ill patient, excluding procedure time. ED Disposition Clinical Impression: Sepsis Qualifiers: Sepsis type: sepsis due to unspecified organism Qualified Code(s): A41.9 - Sepsis, unspecified organism Disposition: OP ADMIT IP TO THIS HOSP Is pt being admited?: Yes Condition: Serious
[2018-05-16] MEDS ORDERED: MAXIPIME/NS 2 GM/100 ML 2 GM/100 ML BAG IV SCH (12:00)
[2018-05-16] MEDS ORDERED: VANCOMYCIN PHARMACY TO DOSE IV SCH (12:00)
--- NOTE | 2018-05-16 12:05 | XRay Report ---
AP CHEST: HISTORY: Fever, sepsis AP view of the chest demonstrates a normal mediastinal and cardiac contour with clear lungs and normal bony and soft tissue structures. Left arm PICC remains in good position since 05/06/18. IMPRESSION: Unremarkable AP chest.
[2018-05-16 12:08] LABS: Basophils % (Auto) 0.2 % (0.0-1.8); Eosinophils % (Auto) 0.1 % (0.0-4.3); Hematocrit 26.6 % (35.5-45.6); Hemoglobin 8.7 gm/dl (11.8-15.2); Lymphocytes # (Auto) 1.4 K/mm3 (1.2-5.4); Lymphocytes % (Auto) 12.4 % (13.4-35.0); Mean Corpuscular HGB Conc 33 % (32-34); Mean Corpuscular Volume 80 fl (84-94); Monocytes # (Auto) 0.8 K/mm3 (0.0-0.8); Monocytes % (Auto) 7.4 % (0.0-7.3); Platelet Count 308 K/mm3 (140-440); Red Blood Count 3.33 M/mm3 (3.65-5.03); Red Cell Distribution Width 16.5 % (13.2-15.2)
[2018-05-16 12:19] LABS: INR 1.17 (0.87-1.13)
[2018-05-16 12:20] LABS: Partial Thromboplastin Time 31.4 Sec. (24.2-36.6)
[2018-05-16 12:24] LABS: Alanine Aminotransferase 438 units/L (7-56); BUN/Creatinine Ratio 25; Blood Urea Nitrogen 27 mg/dL (9-20); Calcium 7.9 mg/dL (8.4-10.2); Hemolysis Index 2
[2018-05-16] MEDS ORDERED: NACL 0.9% 1000 ML 1,000 ML IV ONE (12:49)
[2018-05-16 13:42] LABS: Bacteria,Urine 4+ /HPF (Negative); Bilirubin,Urine NEG (Negative); Blood,Urine NEG (Negative); Color,Urine Yellow (Yellow); Mucus,Urine FEW /HPF; Urobilinogen,Urine < 2.0 mg/dL (<2.0)
[2018-05-16] MEDS ORDERED: VANCOMYCIN 1,500 MG in NACL 0.9% 500 ML 500 ML IV ONE (14:00)
--- NOTE | 2018-05-16 14:48 | Cat Scan Report ---
CT HEAD WITHOUT CONTRAST: HISTORY: Altered mental status, fever, and delirium. TECHNIQUE: Sequential CT images without contrast. FINDINGS: Images obtained show bilateral prominence of the sulci and ventricles. There are no abnormal intra- or extra-axial blood or fluid collections. There are no focal masses or evidence of mass effect. The cartwright white matter differentiation appears within normal limits. Regions of periventricular decreased attenuation are consistent with microangiopathic ischemic disease. The posterior fossa structures including the fourth ventricle, cerebellum, and brainstem appear normal. IMPRESSION: Evidence of atrophy and microangiopathic ischemic disease. No acute intracranial process noted. No significant change since 11/19/17.
--- NOTE | 2018-05-16 14:52 | Cat Scan Report ---
CT ABDOMEN PELVIS WITHOUT CONTRAST: HISTORY: Altered mental status, fever, delirium, history of perforated ulcer. COMPARISON: 03/23/18. TECHNIQUE: Helical CT in 1.25mm intervals without IV contrast. Sagittal and coronal reconstructions. FINDINGS: Lung bases: Normal. Liver: Normal. Biliary system: Several tiny calcified gallstones are noted in the gallbladder. No biliary dilatation or acute inflammation. Pancreas: Normal. Spleen: Normal. Kidneys/ureters/bladder: Normal. Adrenal glands: Normal. Aorta: Mild distal calcifications. No aneurysm. Intestines: There is very little oral contrast in the GI tract. No obvious obstruction, mass or focal inflammation. Appendix: Normal. Ascites: None. Adenopathy: None. Musculoskeletal: The bony structures are osteopenic but intact. Moderate thoracolumbar spondylosis is noted. IMPRESSION: No acute inflammatory process is identified. Cholelithiasis.
[2018-05-17] MEDS: VANCOMYCIN/NS 1 GM/250 ML 1 GM/250 ML BAG IV SCH ×2 (02:18→13:38)
[2018-05-17] MEDS ORDERED: TYLENOL PO PRN (03:18)
[2018-05-17] MEDS ORDERED: SODIUM CHLORIDE FLUSH SYRINGE 10 ML IV PRN (03:18)
[2018-05-17] MEDS ORDERED: ZOFRAN IV PRN (03:18)
--- NOTE | 2018-05-17 03:32 | Event Note ---
Date: 05/16/18 See H/p in reports Line sepsis
[2018-05-17] MEDS ORDERED: VANCOMYCIN PHARMACY TO DOSE IV SCH (04:00)
--- NOTE | 2018-05-17 04:16 | History and Physical Report ---
CHIEF COMPLAINT: Recurrent fever for the last 2 days. 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 Fever off and on. Chills present today. Altered sensorium. 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 The patient also has a history of hypertension, diabetes, BPH and hyperlipidemia. The patient has a PICC line, which has been there for more than 6 weeks. No signs of infection at the site of insertion of PICC line. PAST MEDICAL HISTORY: Significant for hyperlipidemia, BPH and hypertension. PAST SURGICAL HISTORY: Significant for perforated ulcer, surgeries in the scrotum and penis. SOCIAL HISTORY: Former smoker. FAMILY HISTORY: Hypertension. CURRENT MEDICATIONS: Include Lipitor 80 mg once a day, Protonix 40 mg once a day, Proscar 5 mg once a day, tamsulosin for Flomax 0.4 p.o. b.i.d., but the patient on TPN 3000 mL per day. Sodium bicarbonate and hydrochlorothiazide 25 mg in the morning. REVIEW OF SYSTEMS: Significant for fever and chills and altered sensorium for the last 36-48 hours. Otherwise, review of systems is essentially negative. PHYSICAL EXAMINATION: GENERAL: Elderly male, cooperative during examination, slightly confused and slightly lethargic. VITAL SIGNS: Blood pressure is 108/56, temperature is 97.8, pulse is 98, respirations are 14. HEENT: Unremarkable. Pupils are equal and reactive. NECK: Supple, no lymphadenopathy, no thyromegaly. LUNGS: Clear to auscultation and percussion. Good air entry. CARDIOVASCULAR: S1, S2 heard. No gallop, no murmur, no rub. Apical impulse in the left fifth intercostal space and midclavicular line. ABDOMEN: Healing fistula present. Small perforation present where the healing is taking place. No drainage. Bowel sounds are normal. EXTREMITIES: Good pedal pulses. No pedal edema. CENTRAL NERVOUS SYSTEM: Alert and oriented to large extent. Confused to some extent. answers most of the questions. If insisted, the patient answers the questions. SKIN: Normal. Site of PICC line, no obvious signs of infection. LABORATORY DATA: Significant for white count 11,400, H and H is 8.7 and 26.6, platelet count is 308,000. Electrolytes are normal. BUN is 27, slightly high. AST and ALT are high at 241 and 438. Total CK is 43. Urine is negative. EKG shows sinus tachycardia, heart rate of 127 per minute. Chest x-ray shows no acute findings. CT of the head shows atrophy and microangiopathic ischemic disease. CT of the abdomen shows no acute inflammatory process. Cholelithiasis identified. Biliary system, several tiny calcified gallstones are noted in the gallbladder. No biliary distention. ASSESSMENT AND PLAN: 1. Line sepsis. The patient initiated on cefepime and vancomycin. PICC line to be changed. Vascular Surgery consulted. ID consult requested. 2. Hypertension. The patient's medications kept on hold. We will restart antihypertensives if Dr. Weiner clears him for oral intake. 3. Hyperlipidemia. We will hold atorvastatin and wait for clearance to start the oral medications. 4. Benign prostatic hypertrophy. We will hold the tamsulosin and Proscar until Dr. Weiner clears it. 5. Total parenteral nutrition. The patient to get total parenteral nutrition after he gets a new PICC line. Dietitian consult requested and total parenteral nutrition orders were placed. 6. Deep venous thrombosis prophylaxis, Lovenox 30 mg subcutaneous daily. 7. Enterocutaneous fistula--as per Dr. Weiner In summary, the patient has enterocutaneous fistula healing. There is a small perforation in the abdomen. Also line sepsis, hypertension, hyperlipidemia and benign prostatic hypertrophy. JOB# [id number] NATALIIA/YIFAN FROST
[2018-05-17] MEDS: PEPCID IV SCH ×3 (05:29→21:41)
[2018-05-17] MEDS: D5NS 1,000 ML IV SCH ×2 (05:35→21:48)
[2018-05-17] MEDS ORDERED: MAXIPIME/NS 2 GM/100 ML 2 GM/100 ML BAG IV SCH (06:00)
[2018-05-17] MEDS: SODIUM CHLORIDE FLUSH SYRINGE 10 ML IV SCH ×2 (09:49→21:47)
--- NOTE | 2018-05-17 12:16 | Progress Note ---
Assessment and Plan Full consult dictated. Pt well known to me. s/p gastric surg for perf PUD by Dr. Mercado. subsequent entero cutaneous fistula. Pt was on home TPN and being eval by [facility] (Dr. Velazquez). Was doing fine until this admission where states pt became lethargic. Was voiding often over last few days. Abd soft, non tender. CT abd neg other that small entero cutanoues fistula urine 4+ bacteria + cults PICC line site looks clean. neg erythema or induration r/o urosespis. surgically stable await ID eval pt needs to be followed by [facility] from surgical perspective once stable Selected Entries 05/17/18 05/17/18 09:41 10:00 Temperature 98.7 F Respiratory 18 Rate Blood Pressure 131/62 Laboratory Tests 05/16/18 05/16/18 05/16/18 11:39 11:39 11:39 WBC 11.4 H Hgb 8.7 L Hct 26.6 L PT 15.6 H INR 1.17 H Sodium 139 Potassium 3.9 Chloride 106.8 Carbon Dioxide 22 Anion Gap 14 BUN 27 H Creatinine 1.1 Total Bilirubin 0.90 AST 241 H ALT 438 H Alkaline Phosphatase 240 H Urine Turbidity Urine Bacteria (Auto) 05/16/18 12:23 WBC Hgb Hct PT INR Sodium Potassium Chloride Carbon Dioxide Anion Gap BUN Creatinine Total Bilirubin AST ALT Alkaline Phosphatase Urine Turbidity Slightly-cloudy Urine Bacteria (Auto) 4+ Objective Vital Signs - 12hr 05/17/18 05/17/18 05/17/18 00:17 04:35 07:20 Temperature 98.7 F Pulse Rate 115 H 108 H Respiratory 18 20 Rate Blood Pressure 151/70 O2 Sat by Pulse 100 Oximetry 05/17/18 05/17/18 09:41 10:00 Temperature 98.7 F Pulse Rate 103 H Respiratory 16 18 Rate Blood Pressure 131/62 O2 Sat by Pulse 100 97 Oximetry - Labs 05/16/18 11:39 05/16/18 11:39 Diabetes panel 05/16/18 05/17/18 Range/Units 11:39 06:00 Sodium 139 (137-145) mmol/L Potassium 3.9 (3.6-5.0) mmol/L Chloride 106.8 (98-107) mmol/L Carbon Dioxide 22 (22-30) mmol/L BUN 27 H (9-20) mg/dL Creatinine 1.1 (0.8-1.5) mg/dL Glucose 114 H (75-100) mg/dL Hemoglobin A1c 5.6 (4-6) % Calcium 7.9 L (8.4-10.2) mg/dL AST 241 H (5-40) units/L ALT 438 H (7-56) units/L Alkaline Phosphatase 240 H (35-129) units/L Total Protein 6.2 L (6.3-8.2) g/dL Albumin 2.0 L (3.9-5) g/dL Calcium panel 05/16/18 Range/Units 11:39 Calcium 7.9 L (8.4-10.2) mg/dL Albumin 2.0 L (3.9-5) g/dL Pituitary panel 05/16/18 Range/Units 11:39 Sodium 139 (137-145) mmol/L Potassium 3.9 (3.6-5.0) mmol/L Chloride 106.8 (98-107) mmol/L Carbon Dioxide 22 (22-30) mmol/L BUN 27 H (9-20) mg/dL Creatinine 1.1 (0.8-1.5) mg/dL Glucose 114 H (75-100) mg/dL Calcium 7.9 L (8.4-10.2) mg/dL Adrenal panel 05/16/18 Range/Units 11:39 Sodium 139 (137-145) mmol/L Potassium 3.9 (3.6-5.0) mmol/L Chloride 106.8 (98-107) mmol/L Carbon Dioxide 22 (22-30) mmol/L BUN 27 H (9-20) mg/dL Creatinine 1.1 (0.8-1.5) mg/dL Glucose 114 H (75-100) mg/dL Calcium 7.9 L (8.4-10.2) mg/dL Total Bilirubin 0.90 (0.1-1.2) mg/dL AST 241 H (5-40) units/L ALT 438 H (7-56) units/L Alkaline Phosphatase 240 H (35-129) units/L Total Protein 6.2 L (6.3-8.2) g/dL Albumin 2.0 L (3.9-5) g/dL
--- NOTE | 2018-05-17 13:13 | Consultation ---
History of Present Illness - Reason for Consult Consult date: 05/17/18 Line sepsis Requesting physician: TONJA MEDINA - History of Present Illness The patient is a 72-year-old male with hypertension, diabetes, BPH, hyperlipidemia, status post gastric surgery for perforated peptic ulcer disease with resultant enterocutaneous fistulas. He is on home TPN through a PICC line since March 2018. He was brought to the emergency room yesterday after his noted that the patient became lethargic, also had a fever of 102F associated with chills. Due to concerns for sepsis, patient was hospitalized. He currently denies any complaints. He is slow to answer most questions. Denies any urinary burning. EC fistula output is scant but it varies on a weekly basis as per the . The left arm PICC line currently in place has been present since March 2018. Review of Systems: General: + fevers,chills HEENT: no new visual disturbance Respiratory: No cough, sputum, hemoptysis or shortness of breath Cardiovascular: No chest pain, syncope Gastrointestinal: No nausea, vomiting or diarrhea Genitourinary: No dysuria or hematuria Musculoskeletal: No new or worsening neck pain or back pain Neurologic: No headaches, seizures Hematologic: No easy bruising or bleeding Endocrine: No night sweats or acute weight loss Skin: negative for rash, jaundice Psychiatric: No suicidal or homicidal ideation Medications and Allergies Allergies Allergy/AdvReac Type Severity Reaction Status Date / Time No Known Allergies Allergy Verified 03/23/18 19:44 Home Medications Medication Instructions Recorded Confirmed Last Taken Type Multivitamin Tab [Multiple Vitamin 1 each PO QDAY #30 tablet 12/25/17 05/16/18 Unknown Rx TAB (Theragran)] Pantoprazole [Protonix TAB] 40 mg PO DAILY #30 tablet 12/25/17 05/16/18 Unknown Rx Atorvastatin Calcium 80 mg PO QDAY 03/24/18 05/16/18 Unknown History Cholecalciferol (Vitamin D3) 1,000 unit PO QDAY 03/24/18 05/16/18 Unknown History [Vitamin D3] Finasteride [Proscar] 5 mg PO QDAY 03/24/18 05/16/18 Unknown History Tamsulosin HCl [Flomax] 0.4 mg PO BID 03/24/18 05/16/18 Unknown History Total Parenteral Nutrition [TPN See Protocol IV DAILY@1999 30 Days 03/27/18 05/16/18 Unknown Rx Adult] ml Ciprofloxacin HCl [Ciprofloxacin 500 mg PO BID 05/16/18 05/16/18 Unknown History TAB] Sodium Bicarbonate 650 mg PO BID 05/16/18 05/16/18 Unknown History hydroCHLOROthiazide [HCTZ] 25 mg PO QAM 05/16/18 05/16/18 Unknown History Active Meds: Active Medications Acetaminophen (Tylenol) 650 mg PO Q4H PRN PRN Reason: Pain MILD(1-3)/Fever >100.5/CHACON Enoxaparin Sodium (Lovenox) 40 mg SUB-Q QDAY@2200 [facility] Famotidine (Pepcid) 20 mg IV BID [facility] Last Admin: 05/17/18 09:49 Dose: 20 mg Documented by: Hydromorphone HCl (Dilaudid) 0.5 mg IV Q3H PRN PRN Reason: Pain , Severe (7-10) Vancomycin HCl (Vancomycin/Ns 1 Gm/250 Ml) 1 gm in 250 mls @ 166.667 mls/hr IV Q12H [facility] Last Admin: 05/17/18 02:18 Dose: 166.667 mls/hr Documented by: Cefepime HCl (Maxipime/Ns 2 Gm/100 Ml) 2 gm in 100 mls @ 200 mls/hr IV Q8HR [facility]; Protocol Last Admin: 05/17/18 05:39 Dose: 200 mls/hr Documented by: Dextrose/Sodium Chloride (D5ns) 1,000 mls @ 100 mls/hr IV DIRECT [facility] Last Admin: 05/17/18 05:35 Dose: 100 mls/hr Documented by: Miscellaneous Medication (Total Parenteral Nutrition [Tpn Adult]) 3,000 ml IV DAILY@1999 [facility] Ondansetron HCl (Zofran) 4 mg IV Q8H PRN PRN Reason: Nausea And Vomiting Sodium Chloride (Sodium Chloride Flush Syringe 10 Ml) 10 ml IV BID [facility] Last Admin: 05/17/18 09:49 Dose: 10 ml Documented by: Sodium Chloride (Sodium Chloride Flush Syringe 10 Ml) 10 ml IV PRN PRN PRN Reason: LINE FLUSH Physical Examination - Physical Exam Narrative exam: Physical Exam: Constitutional: Alert, cooperative. No acute distress. Cachexia Head, Ears, Nose: Normocephalic, atraumatic. External ears, nose normal Eyes: Conjunctivae/corneas clear. No icterus. No ptosis. Neck: Supple, no meningeal signs Oral: dentition fair, no thrush. Dry and coated tongue Cardiovascular: S1, S2 normal. Respiratory: Good air entry, clear to auscultation bilaterally GI: Soft, non-tender; bowel sounds normal. EC fistula with scant greenish drainage. No peritoneal signs Musculoskeletal: No pedal edema, no cyanosis. Skin: No rash or abscess Hem/Lymphatic: No palpable cervical or supraclavicular nodes. No lymphangitis Psych: Mood ok. Affect normal Neurological: Awake, alert, oriented. No gross abnormality - Constitutional Vitals: Vital Signs Temp Pulse Resp BP Pulse Ox 98.7 F 103 H 18 131/62 97 05/17/18 09:41 05/17/18 09:41 05/17/18 10:00 05/17/18 09:41 05/17/18 10:00 Temperature -Last 24 Hours Temperature 98.7 F Temperature 98.7 F Temperature 97.8 F Results - Labs CBC & Chem 7: 05/16/18 11:39 05/16/18 11:39 - Imaging and Cardiology Chest x-ray: report reviewed, image reviewed (no pneumonia) CT scan - abdomen: report reviewed, image reviewed (no infectious etiology identified.) Assessment and Plan Cultures: 05/16/2018 blood culture: One bottle positive for GPC in pairs 05/16/2018 blood culture: In progress 05/16/2018 urine culture: 10K - 100K GNR A/P: 72-year-old male with hypertension, diabetes, BPH, hyperlipidemia, status post gastric surgery for perforated peptic ulcer disease with resultant enterocutaneous fistula. He is on home TPN through a PICC line since March 2018. Admitted with: #1 Sepsis, fever, leucocytosis with gram-positive bacteremia: Source certainly could be the PICC line. Check echo and follow-up blood cultures. #2 Positive urine culture: Patient asymptomatic. UA without significant pyuria. Likely asymptomatic bacteriuria. #3 EC fistula and malnutrition: on home TPN. EC fistula output is minimal at this time. No abdominal pain. Recs: Discontinued cefepime Continue IV vancomycin, target trough between 10-20 g per mL May need PICC line removal. Depending on the organism, line salvage is possible with the use of antibiotic locks check TTE F/U blood cultures MD [facility] C: [phone] O: [phone] F: [phone]
--- NOTE | 2018-05-17 17:58 | Consultation ---
History of Present Illness - Reason for Consult Consult date: 05/17/18 Possible LUE PICC line infection - History of Present Illness This pt is a 72 yo AAM admitted via the ER due to Fever (102.) on 05/16/18. This pt has a h/o exploratory laparotomy for a perforated viscus in Nov. He subsequently developed a enterocutaneous fistula and has been on TPN through a LUE PICC. This line was placed 03/27/18. Following admission, fever w/u was initiated. Urine cultures and Blood cx's ordered. The UA showed GNR. Peripheral blood cxs are negative thus far. 1 of 2 cultures drawn from the PICC showed GPC. A vascular surgery consult was recommended to evaluate for possible PICC line infection. Past History Past Medical History: hypertension, hyperlipidemia, other (BPH) Past Surgical History: Other (Exp Lap for perf viscus, Picc line insertion, Scrotal and penile surgery) Social history: . denies: smoking, alcohol abuse, prescription drug abuse, IV drug use Family history: hypertension Medications and Allergies Allergies Allergy/AdvReac Type Severity Reaction Status Date / Time No Known Allergies Allergy Verified 03/23/18 19:44 Home Medications Medication Instructions Recorded Confirmed Last Taken Type Multivitamin Tab [Multiple Vitamin 1 each PO QDAY #30 tablet 12/25/17 05/16/18 Unknown Rx TAB (Theragran)] Pantoprazole [Protonix TAB] 40 mg PO DAILY #30 tablet 12/25/17 05/16/18 Unknown Rx Atorvastatin Calcium 80 mg PO QDAY 03/24/18 05/16/18 Unknown History Cholecalciferol (Vitamin D3) 1,000 unit PO QDAY 03/24/18 05/16/18 Unknown History [Vitamin D3] Finasteride [Proscar] 5 mg PO QDAY 03/24/18 05/16/18 Unknown History Tamsulosin HCl [Flomax] 0.4 mg PO BID 03/24/18 05/16/18 Unknown History Total Parenteral Nutrition [TPN See Protocol IV DAILY@1999 30 Days 03/27/18 05/16/18 Unknown Rx Adult] ml Ciprofloxacin HCl [Ciprofloxacin 500 mg PO BID 05/16/18 05/16/18 Unknown History TAB] Sodium Bicarbonate 650 mg PO BID 05/16/18 05/16/18 Unknown History hydroCHLOROthiazide [HCTZ] 25 mg PO QAM 05/16/18 05/16/18 Unknown History Active Meds: Active Medications Acetaminophen (Tylenol) 650 mg PO Q4H PRN PRN Reason: Pain MILD(1-3)/Fever >100.5/[facility]ACON Enoxaparin Sodium (Lovenox) 40 mg SUB-Q QDAY@2200 [facility] Famotidine (Pepcid) 20 mg IV BID [facility] Last Admin: 05/17/18 09:49 Dose: 20 mg Documented by: Hydromorphone HCl (Dilaudid) 0.5 mg IV Q3H PRN PRN Reason: Pain , Severe (7-10) Vancomycin HCl (Vancomycin/Ns 1 Gm/250 Ml) 1 gm in 250 mls @ 166.667 mls/hr IV Q12H [facility] Last Admin: 05/17/18 13:38 Dose: 166.667 mls/hr Documented by: Dextrose/Sodium Chloride (D5ns) 1,000 mls @ 100 mls/hr IV DIRECT [facility] Last Admin: 05/17/18 05:35 Dose: 100 mls/hr Documented by: Miscellaneous Medication (Total Parenteral Nutrition [Tpn Adult]) 3,000 ml IV DAILY@2000 [facility] Ondansetron HCl (Zofran) 4 mg IV Q8H PRN PRN Reason: Nausea And Vomiting Sodium Chloride (Sodium Chloride Flush Syringe 10 Ml) 10 ml IV BID [facility] Last Admin: 05/17/18 09:49 Dose: 10 ml Documented by: Sodium Chloride (Sodium Chloride Flush Syringe 10 Ml) 10 ml IV PRN PRN PRN Reason: LINE FLUSH Review of Systems All systems: negative Exam - Constitutional Vitals: Temp Pulse Resp BP Pulse Ox 100.9 F H 103 H 18 156/69 100 05/17/18 15:00 05/17/18 14:57 05/17/18 15:00 05/17/18 15:00 05/17/18 14:57 General appearance: Present: no acute distress - EENT Eyes: Present: EOM intact ENT: hearing intact - Neck Neck: Present: supple - Respiratory Respiratory effort: normal - Extremities Extremities: no ischemia, abnormal (LUE PICC in place without obvious swelling, induration, erythema or drainage.) - Psychiatric Psychiatric: no appropriate mood/affect (drowsy), intact judgment & insight, cooperative - Neurologic Neurologic: no focal deficits Results - Labs CBC & Chem 7: 05/16/18 11:39 05/16/18 11:39 Assessment and Plan This pt has a h/o a perferated viscus which required Exploratory surgery. He subsequently developed an enterocutaneous fistula. He has been receiving TPN through a LUE PICC line since March. He has been hospitalized multiple times over the last few months. He developed a fever several days ago which have resulted in him being admitted. Fever w/u underway. ID consulted. Concerns for possible PICC line infection. Await results of blood cultures. Further recommendations based upon results of w/u. - Patient Problems (1) Fever Current Visit: No Status: Acute Qualifiers: Fever type: unspecified Qualified Code(s): R50.9 - Fever, unspecified (2) Enterocutaneous fistula Current Visit: Yes Status: Acute (3) HTN (hypertension) Current Visit: Yes Status: Acute
--- NOTE | 2018-05-17 19:05 | Progress Note ---
Assessment and Plan Assessment and plan: Sepsis most likely due to line sepsis Admitted Started on iv Antibiotics ID Physician consulted Blood cultures drawn Enterocutanous fistula Surgeon following Toxic metabolic encephalopathy due to sepsis Hypertension Monitor BP hyperlipidemia Full code status History Interval history: Altered mental status Fever Hospitalist Physical - Physical exam Narrative exam: GEN: Not in acute distress, lying in bed, HEENT: Normocephalic, atraumatic, Neck: supple, No JVD Heart;S1 and S2 reg, no murmurs,rubs or gallop Lungs: Clear to auscultation bilat, no crackles, no wheeze Abd:soft, mild tender, dressing over midline at site of Enterocutanous fistula, normal bowel sounds Ext: No edema, no clubbing, no cyanosis Neuro: Awake,alert,oriented X 3, no focal signs, tremors both hands Psych: normal mood - Constitutional Vitals: Temp Pulse Resp BP Pulse Ox 100.9 F H 103 H 18 156/69 100 05/17/18 15:00 05/17/18 14:57 05/17/18 15:00 05/17/18 15:00 05/17/18 14:57 General appearance: Present: no acute distress Results - Labs CBC & Chem 7: 05/19/18 05:27 05/19/18 05:27 Labs: Laboratory Last Values WBC 11.4 K/mm3 (4.5-11.0) H 05/16/18 11:39 RBC 3.33 M/mm3 (3.65-5.03) L 05/16/18 11:39 Hgb 8.7 gm/dl (11.8-15.2) L 05/16/18 11:39 Hct 26.6 % (35.5-45.6) L 05/16/18 11:39 MCV 80 fl (84-94) L 05/16/18 11:39 MCH 26 pg (28-32) L 05/16/18 11:39 MCHC 33 % (32-34) 05/16/18 11:39 RDW 16.5 % (13.2-15.2) H 05/16/18 11:39 Plt Count 308 K/mm3 (140-440) 05/16/18 11:39 Lymph % (Auto) 12.4 % (13.4-35.0) L 05/16/18 11:39 [place] % (Auto) 7.4 % (0.0-7.3) H 05/16/18 11:39 Eos % (Auto) 0.1 % (0.0-4.3) 05/16/18 11:39 Baso % (Auto) 0.2 % (0.0-1.8) 05/16/18 11:39 Lymph # 1.4 K/mm3 (1.2-5.4) 05/16/18 11:39 [place] # 0.8 K/mm3 (0.0-0.8) 05/16/18 11:39 Eos # 0.0 K/mm3 (0.0-0.4) 05/16/18 11:39 Baso # 0.0 K/mm3 (0.0-0.1) 05/16/18 11:39 Seg Neutrophils % 79.9 % (40.0-70.0) H 05/16/18 11:39 Seg Neutrophils # 9.1 K/mm3 (1.8-7.7) H 05/16/18 11:39 PT 15.6 Sec. (12.2-14.9) H 05/16/18 11:39 INR 1.17 (0.87-1.13) H 05/16/18 11:39 APTT 31.4 Sec. (24.2-36.6) 05/16/18 11:39 Sodium 139 mmol/L (137-145) 05/16/18 11:39 Potassium 3.9 mmol/L (3.6-5.0) 05/16/18 11:39 Chloride 106.8 mmol/L (98-107) 05/16/18 11:39 Carbon Dioxide 22 mmol/L (22-30) 05/16/18 11:39 Anion Gap 14 mmol/L 05/16/18 11:39 BUN 27 mg/dL (9-20) H 05/16/18 11:39 Creatinine 1.1 mg/dL (0.8-1.5) 05/16/18 11:39 Estimated GFR > 60 ml/min 05/16/18 11:39 BUN/Creatinine Ratio 25 % 05/16/18 11:39 Glucose 114 mg/dL (75-100) H 05/16/18 11:39 POC Glucose 78 (70-105) 05/17/18 16:17 Hemoglobin A1c 5.6 % (4-6) 05/17/18 06:00 Lactic Acid 0.90 mmol/L (0.7-2.0) 05/16/18 14:30 Calcium 7.9 mg/dL (8.4-10.2) L 05/16/18 11:39 Magnesium 1.70 mg/dL (1.7-2.3) 05/16/18 11:39 Total Bilirubin 0.90 mg/dL (0.1-1.2) 05/16/18 11:39 AST 241 units/L (5-40) H 05/16/18 11:39 ALT 438 units/L (7-56) H 05/16/18 11:39 Alkaline Phosphatase 240 units/L (35-129) H 05/16/18 11:39 Total Creatine Kinase 43 units/L (55-170) L 05/16/18 11:39 Troponin T < 0.010 ng/mL (0.00-0.029) 05/16/18 11:39 Total Protein 6.2 g/dL (6.3-8.2) L 05/16/18 11:39 Albumin 2.0 g/dL (3.9-5) L 05/16/18 11:39 Albumin/Globulin Ratio 0.5 % 05/16/18 11:39 Urine Color Yellow (Yellow) 05/16/18 12:23 Urine Turbidity Slightly-cloudy (Clear) 05/16/18 12:23 Urine pH 7.0 (5.0-7.0) 05/16/18 12:23 Ur Specific [place] 1.013 (1.003-1.030) 05/16/18 12:23 Urine Protein 30 mg/dl mg/dL (Negative) 05/16/18 12:23 Urine Glucose (UA) Neg mg/dL (Negative) 05/16/18 12:23 Urine Ketones Neg mg/dL (Negative) 05/16/18 12:23 Urine Blood Neg (Negative) 05/16/18 12:23 Urine Nitrite Neg (Negative) 05/16/18 12:23 Urine Bilirubin Neg (Negative) 05/16/18 12:23 Urine Urobilinogen < 2.0 mg/dL (<2.0) 05/16/18 12:23 Ur Leukocyte Esterase Neg (Negative) 05/16/18 12:23 Urine WBC (Auto) 2.0 /HPF (0.0-6.0) 05/16/18 12:23 Urine RBC (Auto) 1.0 /HPF (0.0-6.0) 05/16/18 12:23 U Epithel Cells (Auto) 1.0 /HPF (0-13.0) 05/16/18 12:23 Urine Bacteria (Auto) 4+ /HPF (Negative) 05/16/18 12:23 Urine Mucus Few /HPF 05/16/18 12:23 Nutrition/Malnutrition Assess - Dietary Evaluation Nutrition/Malnutrition Findings: Nutrition Notes Start: 05/17/18 11:28 Freq: Status: Active Protocol: Document 05/17/18 11:28 TW (Rec: 05/17/18 12:32 TW [email or web address]) Co-Sign 05/17/18 11:28 OL Nutrition Notes Need for Assessment generated from: floor surfacer,MST,Education Initial or Follow up Assessment Current Diagnosis Diabetes,Hypertension Other Pertinent Diagnosis Hyperlipidemia Current Diet NPO Labs/Tests Reviewed. Pertinent Medications Reviewed. 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 Pt said he has had DM for 7 years and he knows how to control it. Pt family member stated he practices CHO counting at home . PUBLIC OPINION SURVEY TAKER, pt was receiving TPN at home. No signs of wasting. #1 Nutrition Diagnosis Inadequate oral intake Etiology altered GI function As Evidenced by Signs and Symptoms Pt on NPO status d/t TPN PUBLIC OPINION SURVEY TAKER Is patient on ventilator? No Is Patient Ambulatory and/or Out of Bed No REE-([place]-[facility]. Jeor-confined to bed) [phone] Calculation Used for Recommendations [facility] Additional Notes Protein needs: (1.0-1.2 g/kg per day) (75-89 g/day) Fluid needs: 1ml/kcal Nutrition Intervention Change Diet Order: TPN when consulted Teaching Recipient Patient,Family Learning Readiness Good Teaching Methods Discussion Response to Teaching Verbalize understanding Barriers to Learning No Barriers Goal #1 Diet advancement or TPN consult Anticipated Discharge Needs: unable to determine at this time Follow-Up By: 05/21/18 Additional Comments F/U for POC
[2018-05-17] MEDS ORDERED: TOTAL PARENTERAL NUTRITION IV SCH (20:00)
[2018-05-17] MEDS: LOVENOX SUB-Q SCH (21:41)
--- NOTE | 2018-05-17 22:31 | Consultation ---
REASON FOR CONSULTATION: Readmission, rule out sepsis. HISTORY OF PRESENT ILLNESS: The patient is a 72-year-old gentleman who is well known to me. He had been operated on by Dr. Mercado in the past secondary to a perforated peptic ulcer. 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 Dr. Mercado subsequently has retired and the patient was referred to me for further surgical management. The patient was placed n.p.o. and home TPN and was essentially stable and doing well. He is currently being followed by [place], Dr. Velazquez who was contemplating a possible surgical intervention over the next few weeks. The states patient was doing fine until yesterday when he became somewhat lethargic and thus EMT was called. wanted to go over to [place] for admission, but EMT told the that the patient was somewhat unstable and during heavy traffic, determined to bring the patient back here to [facility]. This morning, the patient is awake and alert and is " than he was yesterday, according to his . PHYSICAL EXAMINATION: GENERAL: At this time revealed the patient to be awake, alert, and cooperative. VITAL SIGNS: He is afebrile with a temperature of 98.7, blood pressure 131/62, pulse of 103, respirations of 18. ABDOMEN: Examination of the abdomen reveals to be soft and nontender. Dressing over the fistula site is clean and dry. RADIOLOGICAL DATA: CT scan of the abdomen was also performed, which I reviewed with the radiologist. There is no evidence of any intraabdominal source of the patient's possible sepsis. LABORATORY DATA: Lab work at present also includes a CBC, which shows a white count of 11.4, H and H is 8.7 and 26.6. Electrolytes are essentially within normal limits. LFTs are somewhat elevated consistent with his prolonged treatment with TPN. AST is 241, ALT 438, alkaline phosphatase is 240. Total bilirubin is normal at 0.9. Urinalysis shows cloudy urine with 4+ bacteria. A subsequent urine culture shows some gram-negative rods, preliminary. Also, examination of the PICC line reveals it to be soft and clean. No evidence of any erythema or induration. ASSESSMENT AND PLAN: 1. At this time is that of a 72-year-old gentleman with a known stable enterocutaneous fistula. 2. Rule out urosepsis. RECOMMENDATIONS: Await ID consultation and evaluation. From a surgical perspective, everything would remain status quo. We should keep the patient n.p.o. and continue his TPN regimen. Once the patient stabilized, he should be followed up back at [place] with Dr. Velazquez's service. I will follow with you. Thank you very much for the consultation. JOB# [id number] GOKUL/YIFAN
[2018-05-18] MEDS: VANCOMYCIN/NS 1 GM/250 ML 1 GM/250 ML BAG IV SCH ×2 (02:47→13:35)
[2018-05-18 05:41] LABS: Basophils % (Auto) 0.5 % (0.0-1.8); Eosinophils % (Auto) 0.3 % (0.0-4.3); Hematocrit 22.7 % (35.5-45.6); Hemoglobin 7.4 gm/dl (11.8-15.2); Lymphocytes # (Auto) 0.8 K/mm3 (1.2-5.4); Lymphocytes % (Auto) 16.6 % (13.4-35.0); Mean Corpuscular HGB Conc 33 % (32-34); Mean Corpuscular Volume 80 fl (84-94); Monocytes # (Auto) 0.5 K/mm3 (0.0-0.8); Monocytes % (Auto) 9.6 % (0.0-7.3); Platelet Count 219 K/mm3 (140-440); Red Blood Count 2.83 M/mm3 (3.65-5.03); Red Cell Distribution Width 16.9 % (13.2-15.2)
[2018-05-18 06:09] LABS: Alanine Aminotransferase 278 units/L (7-56); Albumin 1.6 g/dL (3.9-5); BUN/Creatinine Ratio 17; Blood Urea Nitrogen 19 mg/dL (9-20); Calcium 7.1 mg/dL (8.4-10.2); Hemolysis Index 3
--- NOTE | 2018-05-18 11:30 | Progress Note ---
Assessment and Plan Cultures: 05/16/2018 blood culture: One bottle positive for GPC in pairs 05/16/2018 blood culture: Enterococcus species, 4 out of 4 bottles 05/16/2018 urine culture: 10K - 100K GNR 05/16/2018 PICC: enterococcus species A/P: 72-year-old male with hypertension, diabetes, BPH, hyperlipidemia, status post gastric surgery for perforated peptic ulcer disease with resultant enterocutaneous fistula. He is on home TPN through a PICC line since March 2018. Admitted with: #1 Sepsis, Improving, no leukocytosis with gram-positive bacteremia: Source certainly could be the PICC line. Currently being treated with Vancomycin. #2. Enterococcus Bacteremia: 4 out of 4 bottles. TTE shows no valvular vegetation. #2 Positive urine culture: Patient asymptomatic. UA without significant pyuria. Likely asymptomatic bacteriuria. Urine Culture GNR #3 EC fistula and malnutrition: on home TPN. EC fistula output is minimal at this time. No abdominal pain. Recs: Discontinue vancomycin, target trough between 10-20 g per mL Start Daptomyin 500mg QD Remove PICC line Repeat blood cultures in the AM ordered Dr. Pickett will be phonograph needle tip maker this weekend, , please call for questions. Yuni Solomon NP [facility] M: [id number] O:[phone] Subjective Date of service: 05/18/18 Interval history: Patient seen and examined. Denied generalized pain or weakness. No fevers. at bedside. Nurses notes, labs and reports reviewed, discussed with patient and . Objective - Exam Narrative Exam: Constitutional: Alert, cooperative. No acute distress. Cachexia Head, Ears, Nose: Normocephalic, atraumatic. External ears, nose normal Eyes: Conjunctivae/corneas clear. No icterus. No ptosis. Neck: Supple, no meningeal signs Oral: dentition fair, no thrush. Dry and coated tongue Cardiovascular: S1, S2 normal. Respiratory: Good air entry, clear to auscultation bilaterally GI: Soft, non-tender; bowel sounds normal. EC fistula with scant greenish drainage. No peritoneal signs Musculoskeletal: No pedal edema, no cyanosis. Skin: No rash or abscess Hem/Lymphatic: No palpable cervical or supraclavicular nodes. No lymphangitis Psych: Mood ok. Affect normal Neurological: Awake, alert, oriented. No gross abnormality - Constitutional Vitals: Vital Signs Temp Pulse Resp BP Pulse Ox 97.6 F 77 18 142/67 100 05/18/18 08:47 05/18/18 08:47 05/18/18 08:47 05/18/18 08:47 05/18/18 08:47 Temperature -Last 24 Hours Temperature 97.6 F Temperature 98.1 F Temperature 97.2 F Temperature 102.2 F Temperature 100.9 F - Labs CBC & Chem 7: 05/18/18 04:45 05/18/18 04:45 Labs: Abnormal lab results 05/18/18 05/18/18 05/18/18 Range/Units 04:45 04:45 07:43 RBC 2.83 L (3.65-5.03) M/mm3 Hgb 7.4 L (11.8-15.2) gm/dl Hct 22.7 L (35.5-45.6) % MCV 80 L (84-94) fl MCH 26 L (28-32) pg RDW 16.9 H (13.2-15.2) % [place] % (Auto) 9.6 H (0.0-7.3) % Lymph # 0.8 L (1.2-5.4) K/mm3 Seg Neutrophils % 73.0 H (40.0-70.0) % Potassium 3.1 L D (3.6-5.0) mmol/L Chloride 114.3 H (98-107) mmol/L Carbon Dioxide 20 L (22-30) mmol/L Glucose 108 H (75-100) mg/dL POC Glucose 130 H (70-105) Calcium 7.1 L (8.4-10.2) mg/dL AST 135 H (5-40) units/L ALT 278 H (7-56) units/L Alkaline Phosphatase 212 H (35-129) units/L Total Protein 4.9 L D (6.3-8.2) g/dL Albumin 1.6 L (3.9-5) g/dL
[2018-05-18] MEDS: PEPCID IV SCH ×2 (11:45→21:45)
[2018-05-18] MEDS: KCL 10MEQ/100ML 10 MEQ/100 ML BAG IV SCH ×2 (11:45→12:47)
[2018-05-18] MEDS: SODIUM CHLORIDE FLUSH SYRINGE 10 ML IV SCH ×2 (11:46→21:46)
[2018-05-18] MEDS: D5NS 1,000 ML IV SCH (11:52)
--- NOTE | 2018-05-18 11:58 | Progress Note ---
Assessment and Plan Pt just returning from E[facility]. Looking well. no compl Abd soft, non tender + Blood cults r/o line infection PICC line change as per ID & Vasc consider PRBC transfusion surgically stable will need [place] f/u as outpt once stabilized and d/c'ed Selected Entries 05/18/18 08:47 Temperature 97.6 F Pulse Rate 77 Respiratory 18 Rate Blood Pressure 142/67 Laboratory Tests 05/18/18 04:45 WBC 4.9 Hgb 7.4 L Hct 22.7 L Objective Vital Signs - 12hr 05/18/18 05/18/18 05/18/18 00:30 01:20 05:09 Temperature 97.2 F L Pulse Rate 93 H 54 L Respiratory 20 20 Rate Blood Pressure 130/62 Blood Pressure 138/73 [Left] O2 Sat by Pulse 99 96 Oximetry 05/18/18 05/18/18 05/18/18 05:10 06:57 08:47 Temperature 98.1 F 97.6 F Pulse Rate 53 L 77 77 Respiratory 20 18 Rate Blood Pressure 142/67 Blood Pressure 130/62 [Left] O2 Sat by Pulse 95 100 100 Oximetry - Labs 05/18/18 04:45 05/18/18 04:45 Diabetes panel 05/18/18 Range/Units 04:45 Sodium 145 (137-145) mmol/L Potassium 3.1 L D (3.6-5.0) mmol/L Chloride 114.3 H (98-107) mmol/L Carbon Dioxide 20 L (22-30) mmol/L BUN 19 (9-20) mg/dL Creatinine 1.1 (0.8-1.5) mg/dL Glucose 108 H (75-100) mg/dL Calcium 7.1 L (8.4-10.2) mg/dL AST 135 H (5-40) units/L ALT 278 H (7-56) units/L Alkaline Phosphatase 212 H (35-129) units/L Total Protein 4.9 L D (6.3-8.2) g/dL Albumin 1.6 L (3.9-5) g/dL Calcium panel 05/18/18 Range/Units 04:45 Calcium 7.1 L (8.4-10.2) mg/dL Albumin 1.6 L (3.9-5) g/dL Pituitary panel 05/18/18 Range/Units 04:45 Sodium 145 (137-145) mmol/L Potassium 3.1 L D (3.6-5.0) mmol/L Chloride 114.3 H (98-107) mmol/L Carbon Dioxide 20 L (22-30) mmol/L BUN 19 (9-20) mg/dL Creatinine 1.1 (0.8-1.5) mg/dL Glucose 108 H (75-100) mg/dL Calcium 7.1 L (8.4-10.2) mg/dL Adrenal panel 05/18/18 Range/Units 04:45 Sodium 145 (137-145) mmol/L Potassium 3.1 L D (3.6-5.0) mmol/L Chloride 114.3 H (98-107) mmol/L Carbon Dioxide 20 L (22-30) mmol/L BUN 19 (9-20) mg/dL Creatinine 1.1 (0.8-1.5) mg/dL Glucose 108 H (75-100) mg/dL Calcium 7.1 L (8.4-10.2) mg/dL Total Bilirubin 0.80 (0.1-1.2) mg/dL AST 135 H (5-40) units/L ALT 278 H (7-56) units/L Alkaline Phosphatase 212 H (35-129) units/L Total Protein 4.9 L D (6.3-8.2) g/dL Albumin 1.6 L (3.9-5) g/dL
--- NOTE | 2018-05-18 16:39 | Event Note ---
Date: 05/18/18 Positive blood cultures noted. ID has recommended removal of the PICC line. Patient can be considered for a new PICC line once his bacteremia has cleared.
[2018-05-18] MEDS: DAPTOmycin 500 MG in NACL 0.9% 100 ML IV SCH (17:16)
--- NOTE | 2018-05-18 18:51 | Progress Note ---
Assessment and Plan Assessment and plan: Sepsis most likely due to line sepsis Admitted Started on iv Antibiotics ID Physician consulted Blood cultures growing E. fecalis Started on daptomycin UTI Enterocutanous fistula Surgeon following Toxic metabolic encephalopathy due to sepsis Hypertension Monitor BP hyperlipidemia Full code status History Interval history: Altered mental status Fever Hospitalist Physical - Physical exam Narrative exam: GEN: Not in acute distress, lying in bed, HEENT: Normocephalic, atraumatic, Neck: supple, No JVD Heart;S1 and S2 reg, no murmurs,rubs or gallop Lungs: Clear to auscultation bilat, no crackles, no wheeze Abd:soft, mild tender, dressing over midline at site of Enterocutanous fistula, normal bowel sounds Ext: No edema, no clubbing, no cyanosis Neuro: Awake,alert,oriented X 3, no focal signs, tremors both hands Psych: normal mood - Constitutional Vitals: Temp Pulse Resp BP Pulse Ox 97.9 F 74 20 143/62 100 05/18/18 16:08 05/18/18 16:08 05/18/18 16:08 05/18/18 16:08 05/18/18 16:08 General appearance: Present: no acute distress Results - Labs CBC & Chem 7: 05/19/18 05:27 05/19/18 05:27 Labs: Laboratory Last Values WBC 4.9 K/mm3 (4.5-11.0) 05/18/18 04:45 RBC 2.83 M/mm3 (3.65-5.03) L 05/18/18 04:45 Hgb 7.4 gm/dl (11.8-15.2) L 05/18/18 04:45 Hct 22.7 % (35.5-45.6) L 05/18/18 04:45 MCV 80 fl (84-94) L 05/18/18 04:45 MCH 26 pg (28-32) L 05/18/18 04:45 MCHC 33 % (32-34) 05/18/18 04:45 RDW 16.9 % (13.2-15.2) H 05/18/18 04:45 Plt Count 219 K/mm3 (140-440) 05/18/18 04:45 Lymph % (Auto) 16.6 % (13.4-35.0) 05/18/18 04:45 [place] % (Auto) 9.6 % (0.0-7.3) H 05/18/18 04:45 Eos % (Auto) 0.3 % (0.0-4.3) 05/18/18 04:45 Baso % (Auto) 0.5 % (0.0-1.8) 05/18/18 04:45 Lymph # 0.8 K/mm3 (1.2-5.4) L 05/18/18 04:45 [place] # 0.5 K/mm3 (0.0-0.8) 05/18/18 04:45 Eos # 0.0 K/mm3 (0.0-0.4) 05/18/18 04:45 Baso # 0.0 K/mm3 (0.0-0.1) 05/18/18 04:45 Seg Neutrophils % 73.0 % (40.0-70.0) H 05/18/18 04:45 Seg Neutrophils # 3.6 K/mm3 (1.8-7.7) 05/18/18 04:45 PT 15.6 Sec. (12.2-14.9) H 05/16/18 11:39 INR 1.17 (0.87-1.13) H 05/16/18 11:39 APTT 31.4 Sec. (24.2-36.6) 05/16/18 11:39 Sodium 145 mmol/L (137-145) 05/18/18 04:45 Potassium 3.1 mmol/L (3.6-5.0) L D 05/18/18 04:45 Chloride 114.3 mmol/L (98-107) H 05/18/18 04:45 Carbon Dioxide 20 mmol/L (22-30) L 05/18/18 04:45 Anion Gap 14 mmol/L 05/18/18 04:45 BUN 19 mg/dL (9-20) 05/18/18 04:45 Creatinine 1.1 mg/dL (0.8-1.5) 05/18/18 04:45 Estimated GFR > 60 ml/min 05/18/18 04:45 BUN/Creatinine Ratio 17 % 05/18/18 04:45 Glucose 108 mg/dL (75-100) H 05/18/18 04:45 POC Glucose 97 (70-105) 05/18/18 16:15 Hemoglobin A1c 5.6 % (4-6) 05/17/18 06:00 Lactic Acid 0.90 mmol/L (0.7-2.0) 05/16/18 14:30 Calcium 7.1 mg/dL (8.4-10.2) L 05/18/18 04:45 Magnesium 1.70 mg/dL (1.7-2.3) 05/16/18 11:39 Total Bilirubin 0.80 mg/dL (0.1-1.2) 05/18/18 04:45 AST 135 units/L (5-40) H 05/18/18 04:45 ALT 278 units/L (7-56) H 05/18/18 04:45 Alkaline Phosphatase 212 units/L (35-129) H 05/18/18 04:45 Total Creatine Kinase 43 units/L (55-170) L 05/16/18 11:39 Troponin T < 0.010 ng/mL (0.00-0.029) 05/16/18 11:39 Total Protein 4.9 g/dL (6.3-8.2) L D 05/18/18 04:45 Albumin 1.6 g/dL (3.9-5) L 05/18/18 04:45 Albumin/Globulin Ratio 0.5 % 05/18/18 04:45 Urine Color Yellow (Yellow) 05/16/18 12:23 Urine Turbidity Slightly-cloudy (Clear) 05/16/18 12:23 Urine pH 7.0 (5.0-7.0) 05/16/18 12:23 Ur Specific [place] 1.013 (1.003-1.030) 05/16/18 12:23 Urine Protein 30 mg/dl mg/dL (Negative) 05/16/18 12:23 Urine Glucose (UA) Neg mg/dL (Negative) 05/16/18 12:23 Urine Ketones Neg mg/dL (Negative) 05/16/18 12:23 Urine Blood Neg (Negative) 05/16/18 12:23 Urine Nitrite Neg (Negative) 05/16/18 12:23 Urine Bilirubin Neg (Negative) 05/16/18 12:23 Urine Urobilinogen < 2.0 mg/dL (<2.0) 05/16/18 12:23 Ur Leukocyte Esterase Neg (Negative) 05/16/18 12:23 Urine WBC (Auto) 2.0 /HPF (0.0-6.0) 05/16/18 12:23 Urine RBC (Auto) 1.0 /HPF (0.0-6.0) 05/16/18 12:23 U Epithel Cells (Auto) 1.0 /HPF (0-13.0) 05/16/18 12:23 Urine Bacteria (Auto) 4+ /HPF (Negative) 05/16/18 12:23 Urine Mucus Few /HPF 05/16/18 12:23 Vancomycin Trough 37.9 ug/mL (5.0-20.0) H 05/18/18 14:36 Nutrition/Malnutrition Assess - Dietary Evaluation Nutrition/Malnutrition Findings: Nutrition Notes Start: 05/17/18 11:28 Freq: Status: Active Protocol: Document 05/17/18 11:28 TW (Rec: 05/17/18 12:32 TW [email or web address]) Co-Sign 05/17/18 11:28 OL Nutrition Notes Need for Assessment generated from: high tension tester,MST,Education Initial or Follow up Assessment Current Diagnosis Diabetes,Hypertension Other Pertinent Diagnosis Hyperlipidemia Current Diet NPO Labs/Tests Reviewed. Pertinent Medications Reviewed. 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 Pt said he has had DM for 7 years and he knows how to control it. Pt family member stated he practices CHO counting at home . 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 No signs of wasting. #1 Nutrition Diagnosis Inadequate oral intake Etiology altered GI function As Evidenced by Signs and Symptoms Pt on NPO status d/t TPN CARPET OR RUG LAYER HELPER Is patient on ventilator? No Is Patient Ambulatory and/or Out of Bed No [facility] 1919.508 Calculation Used for Recommendations [facility] Additional Notes Protein needs: (1.0-1.2 g/kg per day) (75-89 g/day) Fluid needs: 1ml/kcal Nutrition Intervention Change Diet Order: TPN when consulted Teaching Recipient Patient,Family Learning Readiness Good Teaching Methods Discussion Response to Teaching Verbalize understanding Barriers to Learning No Barriers Goal #1 Diet advancement or TPN consult Anticipated Discharge Needs: unable to determine at this time Follow-Up By: 05/21/18 Additional Comments F/U for POC
[2018-05-18] MEDS: LOVENOX SUB-Q SCH (21:47)
[2018-05-19] MEDS: D5NS 1,000 ML IV SCH (01:38)
[2018-05-19 06:12] LABS: Hematocrit 22.9 % (35.5-45.6); Hemoglobin 7.5 gm/dl (11.8-15.2); Mean Corpuscular HGB Conc 33 % (32-34); Mean Corpuscular Volume 80 fl (84-94); Platelet Count 221 K/mm3 (140-440); Red Blood Count 2.87 M/mm3 (3.65-5.03)
[2018-05-19 06:38] LABS: Alanine Aminotransferase 184 units/L (7-56); Albumin 1.5 g/dL (3.9-5); BUN/Creatinine Ratio 15; Blood Urea Nitrogen 15 mg/dL (9-20); Calcium 7.2 mg/dL (8.4-10.2); Hemolysis Index 5
[2018-05-19] MEDS ORDERED: D5/0.45NS 1,000 ML IV SCH (09:00)
[2018-05-19] MEDS: SODIUM CHLORIDE FLUSH SYRINGE 10 ML IV SCH ×2 (10:14→22:16)
[2018-05-19] MEDS: PEPCID IV SCH ×2 (10:14→21:48)
[2018-05-19] MEDS ORDERED: NACL 0.9% 500 ML 500 ML IV ONE (12:09)
--- NOTE | 2018-05-19 12:36 | Progress Note ---
Assessment and Plan Pt awake and alert. no specific compl. Vasc eval appreciated. PICC line removed Abd soft, drainage noted from fistula site surgically stable begin PPN until new PICC line able to be re-inserted (once bacteremia resolves) ET nurse for local wd care around entero-cutaneous fistula site rec - transfuse I - II units prbc's f/u cbc post transf antibiotics as per ID continue present care Objective Vital Signs - 12hr 05/19/18 05/19/18 05/19/18 04:35 05:52 09:18 Temperature 97.3 F L 97.5 F L Pulse Rate 70 68 71 Pulse Rate [ Apical] Pulse Rate [ From Monitor] Respiratory 20 16 Rate Blood Pressure 134/60 134/62 O2 Sat by Pulse 100 100 Oximetry 05/19/18 10:00 Temperature Pulse Rate Pulse Rate [ 68 Apical] Pulse Rate [ 62 From Monitor] Respiratory 18 Rate Blood Pressure O2 Sat by Pulse 100 Oximetry - Labs 05/19/18 05:27 05/19/18 05:27 Diabetes panel 05/19/18 Range/Units 05:27 Sodium 148 H (137-145) mmol/L Potassium 3.4 L (3.6-5.0) mmol/L Chloride 118.5 H (98-107) mmol/L Carbon Dioxide 20 L (22-30) mmol/L BUN 15 (9-20) mg/dL Creatinine 1.0 (0.8-1.5) mg/dL Glucose 106 H (75-100) mg/dL Calcium 7.2 L (8.4-10.2) mg/dL AST 65 H (5-40) units/L ALT 184 H (7-56) units/L Alkaline Phosphatase 194 H (35-129) units/L Total Protein 4.8 L (6.3-8.2) g/dL Albumin 1.5 L (3.9-5) g/dL Calcium panel 05/19/18 Range/Units 05:27 Calcium 7.2 L (8.4-10.2) mg/dL Albumin 1.5 L (3.9-5) g/dL Pituitary panel 05/19/18 Range/Units 05:27 Sodium 148 H (137-145) mmol/L Potassium 3.4 L (3.6-5.0) mmol/L Chloride 118.5 H (98-107) mmol/L Carbon Dioxide 20 L (22-30) mmol/L BUN 15 (9-20) mg/dL Creatinine 1.0 (0.8-1.5) mg/dL Glucose 106 H (75-100) mg/dL Calcium 7.2 L (8.4-10.2) mg/dL Adrenal panel 05/19/18 Range/Units 05:27 Sodium 148 H (137-145) mmol/L Potassium 3.4 L (3.6-5.0) mmol/L Chloride 118.5 H (98-107) mmol/L Carbon Dioxide 20 L (22-30) mmol/L BUN 15 (9-20) mg/dL Creatinine 1.0 (0.8-1.5) mg/dL Glucose 106 H (75-100) mg/dL Calcium 7.2 L (8.4-10.2) mg/dL Total Bilirubin 0.50 (0.1-1.2) mg/dL AST 65 H (5-40) units/L ALT 184 H (7-56) units/L Alkaline Phosphatase 194 H (35-129) units/L Total Protein 4.8 L (6.3-8.2) g/dL Albumin 1.5 L (3.9-5) g/dL
[2018-05-19] MEDS: KCL 10MEQ/100ML 10 MEQ/100 ML BAG IV SCH ×2 (13:28→22:16)
--- NOTE | 2018-05-19 17:36 | Progress Note ---
Assessment and Plan Assessment and plan: Sepsis most likely due to line sepsis Admitted Started on iv Antibiotics ID Physician consulted Blood cultures growing E. fecalis Started on Daptomycin Discussed with Dr. Weiner. he recommends starting PPN. Discussed with Nurse. UTI Due to Klebsiella Enterocutanous fistula Surgeon following Toxic metabolic encephalopathy due to sepsis Hypertension Monitor BP hyperlipidemia Full code status History Interval history: Altered mental status Fever Hospitalist Physical - Physical exam Narrative exam: GEN: Not in acute distress, lying in bed, HEENT: Normocephalic, atraumatic, Neck: supple, No JVD Heart;S1 and S2 reg, no murmurs,rubs or gallop Lungs: Clear to auscultation bilat, no crackles, no wheeze Abd:soft, mild tender, dressing over midline at site of Enterocutanous fistula, normal bowel sounds Ext: No edema, no clubbing, no cyanosis Neuro: Awake,alert,confused,moves all ext Psych: normal mood - Constitutional Vitals: Temp Pulse Resp BP Pulse Ox 97.4 F L 77 18 155/69 100 05/19/18 17:15 05/19/18 17:15 05/19/18 17:15 05/19/18 17:15 05/19/18 17:15 General appearance: Present: no acute distress Results - Labs CBC & Chem 7: 05/19/18 05:27 05/19/18 05:27 Labs: Laboratory Last Values WBC 5.0 K/mm3 (4.5-11.0) 05/19/18 05:27 RBC 2.87 M/mm3 (3.65-5.03) L 05/19/18 05:27 Hgb 7.5 gm/dl (11.8-15.2) L 05/19/18 05:27 Hct 22.9 % (35.5-45.6) L 05/19/18 05:27 MCV 80 fl (84-94) L 05/19/18 05:27 MCH 26 pg (28-32) L 05/19/18 05:27 MCHC 33 % (32-34) 05/19/18 05:27 RDW 17.0 % (13.2-15.2) H 05/19/18 05:27 Plt Count 221 K/mm3 (140-440) 05/19/18 05:27 Lymph % (Auto) 16.6 % (13.4-35.0) 05/18/18 04:45 [place] % (Auto) 9.6 % (0.0-7.3) H 05/18/18 04:45 Eos % (Auto) 0.3 % (0.0-4.3) 05/18/18 04:45 Baso % (Auto) 0.5 % (0.0-1.8) 05/18/18 04:45 Lymph # 0.8 K/mm3 (1.2-5.4) L 05/18/18 04:45 [place] # 0.5 K/mm3 (0.0-0.8) 05/18/18 04:45 Eos # 0.0 K/mm3 (0.0-0.4) 05/18/18 04:45 Baso # 0.0 K/mm3 (0.0-0.1) 05/18/18 04:45 Seg Neutrophils % 73.0 % (40.0-70.0) H 05/18/18 04:45 Seg Neutrophils # 3.6 K/mm3 (1.8-7.7) 05/18/18 04:45 PT 15.6 Sec. (12.2-14.9) H 05/16/18 11:39 INR 1.17 (0.87-1.13) H 05/16/18 11:39 APTT 31.4 Sec. (24.2-36.6) 05/16/18 11:39 Sodium 148 mmol/L (137-145) H 05/19/18 05:27 Potassium 3.4 mmol/L (3.6-5.0) L 05/19/18 05:27 Chloride 118.5 mmol/L (98-107) H 05/19/18 05:27 Carbon Dioxide 20 mmol/L (22-30) L 05/19/18 05:27 Anion Gap 13 mmol/L 05/19/18 05:27 BUN 15 mg/dL (9-20) 05/19/18 05:27 Creatinine 1.0 mg/dL (0.8-1.5) 05/19/18 05:27 Estimated GFR > 60 ml/min 05/19/18 05:27 BUN/Creatinine Ratio 15 % 05/19/18 05:27 Glucose 106 mg/dL (75-100) H 05/19/18 05:27 POC Glucose 125 (70-105) H 05/19/18 12:13 Hemoglobin A1c 5.6 % (4-6) 05/17/18 06:00 Lactic Acid 0.90 mmol/L (0.7-2.0) 05/16/18 14:30 Calcium 7.2 mg/dL (8.4-10.2) L 05/19/18 05:27 Magnesium 1.70 mg/dL (1.7-2.3) 05/16/18 11:39 Total Bilirubin 0.50 mg/dL (0.1-1.2) 05/19/18 05:27 AST 65 units/L (5-40) H 05/19/18 05:27 ALT 184 units/L (7-56) H 05/19/18 05:27 Alkaline Phosphatase 194 units/L (35-129) H 05/19/18 05:27 Total Creatine Kinase 43 units/L (55-170) L 05/16/18 11:39 Troponin T < 0.010 ng/mL (0.00-0.029) 05/16/18 11:39 Total Protein 4.8 g/dL (6.3-8.2) L 05/19/18 05:27 Albumin 1.5 g/dL (3.9-5) L 05/19/18 05:27 Albumin/Globulin Ratio 0.5 % 05/19/18 05:27 Urine Color Yellow (Yellow) 05/16/18 12:23 Urine Turbidity Slightly-cloudy (Clear) 05/16/18 12:23 Urine pH 7.0 (5.0-7.0) 05/16/18 12:23 Ur Specific [place] 1.013 (1.003-1.030) 05/16/18 12:23 Urine Protein 30 mg/dl mg/dL (Negative) 05/16/18 12:23 Urine Glucose (UA) Neg mg/dL (Negative) 05/16/18 12:23 Urine Ketones Neg mg/dL (Negative) 05/16/18 12:23 Urine Blood Neg (Negative) 05/16/18 12:23 Urine Nitrite Neg (Negative) 05/16/18 12:23 Urine Bilirubin Neg (Negative) 05/16/18 12:23 Urine Urobilinogen < 2.0 mg/dL (<2.0) 05/16/18 12:23 Ur Leukocyte Esterase Neg (Negative) 05/16/18 12:23 Urine WBC (Auto) 2.0 /HPF (0.0-6.0) 05/16/18 12:23 Urine RBC (Auto) 1.0 /HPF (0.0-6.0) 05/16/18 12:23 U Epithel Cells (Auto) 1.0 /HPF (0-13.0) 05/16/18 12:23 Urine Bacteria (Auto) 4+ /HPF (Negative) 05/16/18 12:23 Urine Mucus Few /HPF 05/16/18 12:23 Vancomycin Trough 37.9 ug/mL (5.0-20.0) H 05/18/18 14:36 Blood Type AB POSITIVE 05/19/18 12:56 Antibody Screen Negative 05/19/18 12:56 Crossmatch See Detail 05/19/18 12:56 Nutrition/Malnutrition Assess - Dietary Evaluation Nutrition/Malnutrition Findings: Nutrition Notes Start: 05/17/18 11:28 Freq: Status: Active Protocol: Document 05/19/18 13:53 RM (Rec: 05/19/18 13:55 RM [id number]) Nutrition Notes Initial or Follow up Reassessment Current Diagnosis Diabetes,Hypertension Other Pertinent Diagnosis Enterocutaneous fistula, Line sepsis Current Diet NPO Labs/Tests Na 148, K 3.4, Cl 118.5, Mg 1. 7 (05/16/18), No P available Pertinent Medications D5ns @ 100 ml/hr Height 6 ft 4 in Weight 73.3 kg [place] Body Weight (kg) 91.81 BMI 19.6 Subjective/Other Information Consulted for TPN recommendation. PICC line removed d/t infection. #1 Nutrition Diagnosis Inadequate oral intake Diagnosis Progress(for reassessment Continues documentation) Is patient on ventilator? No Is Patient Ambulatory and/or Out of Bed No REE-([facility]-confined [facility]) 1901.532 Kcal/Kg value to use for calculation 30 Approximate Energy Requirements Using 2199 kcal/Kg Calculation Used for Recommendations [facility] Additional Notes Protein needs: 110-124g (1.5-1 .7g/kg) Fluid needs: 1ml/kcal Nutrition Intervention Nutrition Support: PPN at 100 ml/hr: 3.5% AA, Dextrose 4%, 150 mEq Na, 80 mEq K, 5 mEq Ca, 20 mmol P, 10 mEq Mg, Cl/Acetate: 25/75 MVI Kcal 672 Protein (gm) 83 Carbohydrates (gm) 100 Fat (gm) 0 Fluid (mL) 2,400 Goal #1 Meet nutrition needs as best possible via PPN Anticipated Discharge Needs: unable to determine at this time Follow-Up By: 05/20/18 Additional Comments Follow for BMP, Mg, P, TG
[2018-05-19] MEDS ORDERED: TPN ADULT 2,400 ML IV SCH (20:00)
[2018-05-19] MEDS: LOVENOX SUB-Q SCH (21:47)
[2018-05-19] MEDS: DAPTOmycin 500 MG in NACL 0.9% 100 ML IV SCH (23:50)
[2018-05-20 08:30] LABS: Hematocrit 26.3 % (35.5-45.6); Hemoglobin 8.8 gm/dl (11.8-15.2); Mean Corpuscular HGB Conc 33 % (32-34); Mean Corpuscular Volume 80 fl (84-94); Platelet Count 226 K/mm3 (140-440)
[2018-05-20 08:46] LABS: BUN/Creatinine Ratio 15; Blood Urea Nitrogen 12 mg/dL (9-20); Calcium 7.2 mg/dL (8.4-10.2)
[2018-05-20 08:47] LABS: Alanine Aminotransferase 143 units/L (7-56); Albumin 1.9 g/dL (3.9-5); Hemolysis Index 4
[2018-05-20 08:48] LABS: BUN/Creatinine Ratio 13; Blood Urea Nitrogen 12 mg/dL (9-20); Calcium 7.3 mg/dL (8.4-10.2); Hemolysis Index 4
[2018-05-20] MEDS ORDERED: MAGNESIUM SULFATE 2GM/50ML 2 GM/50 ML BAG IV ONE (11:00)
[2018-05-20] MEDS: PEPCID IV SCH ×2 (11:18→23:07)
[2018-05-20] MEDS: KCL 10MEQ/100ML 10 MEQ/100 ML BAG IV SCH ×2 (11:18→13:07)
[2018-05-20] MEDS: SODIUM CHLORIDE FLUSH SYRINGE 10 ML IV SCH ×2 (11:23→23:08)
--- NOTE | 2018-05-20 12:29 | Progress Note ---
Assessment and Plan Assessment and plan: Sepsis most likely due to line sepsis Admitted Started on iv Antibiotics ID Physician consulted Blood cultures growing E. fecalis Continue Daptomycin Started on PPN UTI Due to Klebsiella pneumonia ESBL Enterocutanous fistula Surgeon following Toxic metabolic encephalopathy due to sepsis Hypertension Monitor BP hyperlipidemia Full code status History Interval history: Altered mental status Fever Hospitalist Physical - Physical exam Narrative exam: GEN: Not in acute distress, lying in bed, HEENT: Normocephalic, atraumatic, Neck: supple, No JVD Heart;S1 and S2 reg, no murmurs,rubs or gallop Lungs: Clear to auscultation bilat, no crackles, no wheeze Abd:soft, mild tender, dressing over midline at site of Enterocutanous fistula, normal bowel sounds Ext: No edema, no clubbing, no cyanosis Neuro: Awake,alert,confused,moves all ext Psych: normal mood - Constitutional Vitals: Temp Pulse Resp BP Pulse Ox 97.1 F L 60 18 169/65 100 05/20/18 08:03 05/20/18 10:00 05/20/18 10:00 05/20/18 08:03 05/20/18 10:00 General appearance: Present: no acute distress Results - Labs CBC & Chem 7: 05/20/18 08:06 05/20/18 08:06 Labs: Laboratory Last Values WBC 5.1 K/mm3 (4.5-11.0) 05/20/18 08:06 RBC 3.30 M/mm3 (3.65-5.03) L 05/20/18 08:06 Hgb 8.8 gm/dl (11.8-15.2) L 05/20/18 08:06 Hct 26.3 % (35.5-45.6) L 05/20/18 08:06 MCV 80 fl (84-94) L 05/20/18 08:06 MCH 27 pg (28-32) L 05/20/18 08:06 MCHC 33 % (32-34) 05/20/18 08:06 RDW 16.0 % (13.2-15.2) H 05/20/18 08:06 Plt Count 226 K/mm3 (140-440) 05/20/18 08:06 Lymph % (Auto) 16.6 % (13.4-35.0) 05/18/18 04:45 [place] % (Auto) 9.6 % (0.0-7.3) H 05/18/18 04:45 Eos % (Auto) 0.3 % (0.0-4.3) 05/18/18 04:45 Baso % (Auto) 0.5 % (0.0-1.8) 05/18/18 04:45 Lymph # 0.8 K/mm3 (1.2-5.4) L 05/18/18 04:45 Wilson # 0.5 K/mm3 (0.0-0.8) 05/18/18 04:45 Eos # 0.0 K/mm3 (0.0-0.4) 05/18/18 04:45 Baso # 0.0 K/mm3 (0.0-0.1) 05/18/18 04:45 Seg Neutrophils % 73.0 % (40.0-70.0) H 05/18/18 04:45 Seg Neutrophils # 3.6 K/mm3 (1.8-7.7) 05/18/18 04:45 PT 15.6 Sec. (12.2-14.9) H 05/16/18 11:39 INR 1.17 (0.87-1.13) H 05/16/18 11:39 APTT 31.4 Sec. (24.2-36.6) 05/16/18 11:39 Sodium 141 mmol/L (137-145) 05/20/18 08:06 Potassium 3.2 mmol/L (3.6-5.0) L 05/20/18 08:06 Chloride 111.5 mmol/L (98-107) H 05/20/18 08:06 Carbon Dioxide 21 mmol/L (22-30) L 05/20/18 08:06 Anion Gap 12 mmol/L 05/20/18 08:06 BUN 12 mg/dL (9-20) 05/20/18 08:06 Creatinine 0.9 mg/dL (0.8-1.5) 05/20/18 08:06 Estimated GFR > 60 ml/min 05/20/18 08:06 BUN/Creatinine Ratio 13 % 05/20/18 08:06 Glucose 106 mg/dL (75-100) H 05/20/18 08:06 POC Glucose 106 (70-105) H 05/20/18 12:13 Hemoglobin A1c 5.6 % (4-6) 05/17/18 06:00 Lactic Acid 0.90 mmol/L (0.7-2.0) 05/16/18 14:30 Calcium 7.3 mg/dL (8.4-10.2) L 05/20/18 08:06 Phosphorus 3.20 mg/dL (2.5-4.5) 05/20/18 08:06 Magnesium 1.60 mg/dL (1.7-2.3) L 05/20/18 08:06 Total Bilirubin 0.60 mg/dL (0.1-1.2) 05/20/18 08:06 AST 43 units/L (5-40) H 05/20/18 08:06 ALT 143 units/L (7-56) H 05/20/18 08:06 Alkaline Phosphatase 174 units/L (35-129) H 05/20/18 08:06 Total Creatine Kinase 43 units/L (55-170) L 05/16/18 11:39 Troponin T < 0.010 ng/mL (0.00-0.029) 05/16/18 11:39 Total Protein 5.2 g/dL (6.3-8.2) L 05/20/18 08:06 Albumin 1.9 g/dL (3.9-5) L 05/20/18 08:06 Albumin/Globulin Ratio 0.6 % 05/20/18 08:06 Triglycerides 79 mg/dL (2-149) 05/20/18 08:06 Urine Color Yellow (Yellow) 05/16/18 12:23 Urine Turbidity Slightly-cloudy (Clear) 05/16/18 12:23 Urine pH 7.0 (5.0-7.0) 05/16/18 12:23 Ur Specific [place] 1.013 (1.003-1.030) 05/16/18 12:23 Urine Protein 30 mg/dl mg/dL (Negative) 05/16/18 12:23 Urine Glucose (UA) Neg mg/dL (Negative) 05/16/18 12:23 Urine Ketones Neg mg/dL (Negative) 05/16/18 12:23 Urine Blood Neg (Negative) 05/16/18 12:23 Urine Nitrite Neg (Negative) 05/16/18 12:23 Urine Bilirubin Neg (Negative) 05/16/18 12:23 Urine Urobilinogen < 2.0 mg/dL (<2.0) 05/16/18 12:23 Ur Leukocyte Esterase Neg (Negative) 05/16/18 12:23 Urine WBC (Auto) 2.0 /HPF (0.0-6.0) 05/16/18 12:23 Urine RBC (Auto) 1.0 /HPF (0.0-6.0) 05/16/18 12:23 U Epithel Cells (Auto) 1.0 /HPF (0-13.0) 05/16/18 12:23 Urine Bacteria (Auto) 4+ /HPF (Negative) 05/16/18 12:23 Urine Mucus Few /HPF 05/16/18 12:23 Vancomycin Trough 37.9 ug/mL (5.0-20.0) H 05/18/18 14:36 Blood Type AB POSITIVE 05/19/18 12:56 Antibody Screen Negative 05/19/18 12:56 Crossmatch See Detail 05/19/18 12:56 Nutrition/Malnutrition Assess - Dietary Evaluation Nutrition/Malnutrition Findings: Nutrition Notes Start: 05/17/18 11:28 Freq: Status: Active Protocol: Document 05/19/18 13:53 RM (Rec: 05/19/18 13:55 RM [id number]) Nutrition Notes Initial or Follow up Reassessment Current Diagnosis Diabetes,Hypertension Other Pertinent Diagnosis Enterocutaneous fistula, Line sepsis Current Diet NPO Labs/Tests Na 148, K 3.4, Cl 118.5, Mg 1. 7 (05/16/18), No P available Pertinent Medications D5ns @ 100 ml/hr Height 6 ft 4 in Weight 73.3 kg [place] Body Weight (kg) 91.81 BMI 19.6 Subjective/Other Information Consulted for TPN recommendation. PICC line removed d/t infection. #1 Nutrition Diagnosis Inadequate oral intake Diagnosis Progress(for reassessment Continues documentation) Is patient on ventilator? No Is Patient Ambulatory and/or Out of Bed No REE-([facility]-confined to bed) 1901.532 Kcal/Kg value to use for calculation 30 Approximate Energy Requirements Using 2199 kcal/Kg Calculation Used for Recommendations [facility] Additional Notes Protein needs: 110-124g (1.5-1 .7g/kg) Fluid needs: 1ml/kcal Nutrition Intervention Nutrition Support: PPN at 100 ml/hr: 3.5% AA, Dextrose 4%, 150 mEq Na, 80 mEq K, 5 mEq Ca, 20 mmol P, 10 mEq Mg, Cl/Acetate: 25/75 MVI Kcal 672 Protein (gm) 83 Carbohydrates (gm) 100 Fat (gm) 0 Fluid (mL) 2,400 Goal #1 Meet nutrition needs as best possible via PPN Anticipated Discharge Needs: unable to determine at this time Follow-Up By: 05/20/18 Additional Comments Follow for BMP, Mg, P, TG
--- NOTE | 2018-05-20 13:02 | Progress Note ---
Assessment and Plan Pt awake and alert. resting comfortable Abd soft status quo. started on PPN surgically stable local wd care at fistula site as per ET nurses Selected Entries 05/19/18 05/19/18 05/20/18 09:18 10:00 08:03 Temperature 97.5 F L 97.1 F L Pulse Rate [ 68 Apical] Blood Pressure 134/62 Blood Pressure 169/65 [Left] 05/20/18 10:00 Temperature Pulse Rate [ 60 Apical] Blood Pressure Blood Pressure [Left] Laboratory Tests 05/19/18 05/19/18 05/20/18 05:27 05:27 08:06 WBC 5.0 5.1 Hgb 7.5 L 8.8 L Hct 22.9 L 26.3 L Sodium 148 H Potassium 3.4 L Chloride 118.5 H Carbon Dioxide 20 L BUN 15 Creatinine 1.0 05/20/18 08:06 WBC Hgb Hct Sodium Potassium 3.2 L Chloride Carbon Dioxide BUN Creatinine Objective Vital Signs - 12hr 05/20/18 05/20/18 05/20/18 04:50 08:03 10:00 Temperature 97.1 F L Pulse Rate 52 L 52 L Pulse Rate [ 60 Apical] Pulse Rate [ 59 L From Monitor] Respiratory 18 Rate Blood Pressure 169/65 [Left] O2 Sat by Pulse 100 Oximetry - Labs 05/20/18 08:06 05/20/18 08:06 Diabetes panel 05/20/18 05/20/18 Range/Units 08:06 08:06 Sodium 141 141 (137-145) mmol/L Potassium 3.3 L 3.2 L (3.6-5.0) mmol/L Chloride 112.2 H 111.5 H (98-107) mmol/L Carbon Dioxide 21 L 21 L (22-30) mmol/L BUN 12 12 (9-20) mg/dL Creatinine 0.8 0.9 (0.8-1.5) mg/dL Glucose 106 H 106 H (75-100) mg/dL Calcium 7.2 L 7.3 L (8.4-10.2) mg/dL AST 43 H (5-40) units/L ALT 143 H (7-56) units/L Alkaline Phosphatase 174 H (35-129) units/L Total Protein 5.2 L (6.3-8.2) g/dL Albumin 1.9 L (3.9-5) g/dL Triglycerides 79 (2-149) mg/dL Calcium panel 05/20/18 05/20/18 Range/Units 08:06 08:06 Calcium 7.2 L 7.3 L (8.4-10.2) mg/dL Phosphorus 3.20 (2.5-4.5) mg/dL Albumin 1.9 L (3.9-5) g/dL Pituitary panel 05/20/18 05/20/18 Range/Units 08:06 08:06 Sodium 141 141 (137-145) mmol/L Potassium 3.3 L 3.2 L (3.6-5.0) mmol/L Chloride 112.2 H 111.5 H (98-107) mmol/L Carbon Dioxide 21 L 21 L (22-30) mmol/L BUN 12 12 (9-20) mg/dL Creatinine 0.8 0.9 (0.8-1.5) mg/dL Glucose 106 H 106 H (75-100) mg/dL Calcium 7.2 L 7.3 L (8.4-10.2) mg/dL Adrenal panel 05/20/18 05/20/18 Range/Units 08:06 08:06 Sodium 141 141 (137-145) mmol/L Potassium 3.3 L 3.2 L (3.6-5.0) mmol/L Chloride 112.2 H 111.5 H (98-107) mmol/L Carbon Dioxide 21 L 21 L (22-30) mmol/L BUN 12 12 (9-20) mg/dL Creatinine 0.8 0.9 (0.8-1.5) mg/dL Glucose 106 H 106 H (75-100) mg/dL Calcium 7.2 L 7.3 L (8.4-10.2) mg/dL Total Bilirubin 0.60 (0.1-1.2) mg/dL AST 43 H (5-40) units/L ALT 143 H (7-56) units/L Alkaline Phosphatase 174 H (35-129) units/L Total Protein 5.2 L (6.3-8.2) g/dL Albumin 1.9 L (3.9-5) g/dL
[2018-05-20] MEDS: DAPTOmycin 500 MG in NACL 0.9% 100 ML IV SCH (17:46)
[2018-05-20] MEDS ORDERED: TPN ADULT 2,400 ML IV SCH (20:00)
[2018-05-20] MEDS: LOVENOX SUB-Q SCH (23:07)
[2018-05-21 08:51] LABS: Hematocrit 29.9 % (35.5-45.6); Hemoglobin 9.7 gm/dl (11.8-15.2); Mean Corpuscular HGB Conc 32 % (32-34); Mean Corpuscular Volume 82 fl (84-94); Platelet Count 257 K/mm3 (140-440); Red Blood Count 3.65 M/mm3 (3.65-5.03); Red Cell Distribution Width 16.6 % (13.2-15.2)
[2018-05-21 09:10] LABS: BUN/Creatinine Ratio 16; Blood Urea Nitrogen 13 mg/dL (9-20); Calcium 7.4 mg/dL (8.4-10.2); Hemolysis Index 2
[2018-05-21 09:12] LABS: Alanine Aminotransferase 119 units/L (7-56); Albumin 2.1 g/dL (3.9-5); BUN/Creatinine Ratio 16; Blood Urea Nitrogen 13 mg/dL (9-20); Calcium 7.4 mg/dL (8.4-10.2); Hemolysis Index 2
--- NOTE | 2018-05-21 10:06 | Progress Note ---
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 He is on home TPN through a PICC line since March 2018. Admitted with: #1 Sepsis, Resolved, no leukocytosis with gram-positive bacteremia: Source certainly could be the PICC line. Currently being treated with Vancomycin. #2. Enterococcus Bacteremia: 4 out of 4 bottles. TTE shows no valvular vegetation. #2 Positive urine culture: Patient asymptomatic. UA without significant pyuria. Likely asymptomatic bacteriuria. Urine Culture ESBL Klebsiella #3 EC fistula and malnutrition: on home TPN. EC fistula output is minimal at this time. No abdominal pain. Recs: Discontinue Daptomyin 500mg QD Contact Isolation for ESBL PICC line ordered Start Ampicillin 2gms IV every 4 hours Anticipate discharge on Ampicillin 12 gms continuous infusion for 2 weeks ending 06-02-18 Order sent to [facility] and Case management for home health. Yuni Solomon NP [facility] M: [phone] O:[phone] Subjective Date of service: 05/21/18 Objective - Constitutional Vitals: Vital Signs Temp Pulse Resp BP Pulse Ox 98.2 F 60 18 168/88 99 05/21/18 01:20 05/21/18 04:00 05/21/18 01:20 05/21/18 01:20 05/21/18 01:20 Temperature -Last 24 Hours Temperature 98.2 F Temperature 98.0 F - Labs CBC & Chem 7: 05/21/18 08:19 05/21/18 08:19 Labs: Abnormal lab results 05/20/18 05/21/18 05/21/18 Range/Units 12:13 08:19 08:19 Hgb 9.7 L (11.8-15.2) gm/dl Hct 29.9 L (35.5-45.6) % MCV 82 L (84-94) fl MCH 27 L (28-32) pg RDW 16.6 H (13.2-15.2) % POC Glucose 106 H (70-105) Calcium 7.4 L (8.4-10.2) mg/dL ALT 119 H (7-56) units/L Alkaline Phosphatase 166 H (35-129) units/L Total Protein 5.3 L (6.3-8.2) g/dL Albumin 2.1 L (3.9-5) g/dL 05/21/18 Range/Units 08:19 Hgb (11.8-15.2) gm/dl Hct (35.5-45.6) % MCV (84-94) fl MCH (28-32) pg RDW (13.2-15.2) % POC Glucose (70-105) Calcium 7.4 L (8.4-10.2) mg/dL ALT (7-56) units/L Alkaline Phosphatase (35-129) units/L Total Protein (6.3-8.2) g/dL Albumin (3.9-5) g/dL
[2018-05-21] MEDS: SODIUM CHLORIDE FLUSH SYRINGE 10 ML IV SCH ×2 (13:13→22:21)
[2018-05-21] MEDS: PEPCID IV SCH ×2 (13:13→22:20)
--- NOTE | 2018-05-21 13:47 | Progress Note ---
Assessment and Plan Pt status quo. Abd soft surgically stable prefers pt to go ahead and be transferred to [place] if possible I suggested that she go ahead and contact Dr. Velazquez's office (who have been seeing pt as outpt) for a transfer acceptance and then we can proceed to make the necessary arrangements from our end. Selected Entries 05/21/18 05/21/18 04:00 11:32 Temperature 97.4 F L Pulse Rate 60 Respiratory 18 Rate Blood Pressure 170/78 Laboratory Tests 05/21/18 08:19 WBC 5.7 Hgb 9.7 L Hct 29.9 L Objective Vital Signs - 12hr 05/21/18 05/21/18 04:00 11:32 Temperature 97.4 F L Pulse Rate 60 Respiratory 18 Rate Blood Pressure 170/78 - Labs 05/21/18 08:19 05/21/18 08:19 Diabetes panel 05/21/18 05/21/18 Range/Units 08: 08:19 Sodium 143 144 (137-145) mmol/L Potassium 3.9 D 3.9 (3.6-5.0) mmol/L Chloride 106.6 107.0 (98-107) mmol/L Carbon Dioxide 27 26 (22-30) mmol/L BUN 13 13 (9-20) mg/dL Creatinine 0.8 0.8 (0.8-1.5) mg/dL Glucose 98 99 (75-100) mg/dL Calcium 7.4 L 7.4 L (8.4-10.2) mg/dL AST 33 (5-40) units/L ALT 119 H (7-56) units/L Alkaline Phosphatase 166 H (35-129) units/L Total Protein 5.3 L (6.3-8.2) g/dL Albumin 2.1 L (3.9-5) g/dL Calcium panel 05/21/18 05/21/18 Range/Units 08:19 08:19 Calcium 7.4 L 7.4 L (8.4-10.2) mg/dL Phosphorus 3.40 (2.5-4.5) mg/dL Albumin 2.1 L (3.9-5) g/dL Pituitary panel 05/21/18 05/21/18 Range/Units 08:19 08:19 Sodium 143 144 (137-145) mmol/L Potassium 3.9 D 3.9 (3.6-5.0) mmol/L Chloride 106.6 107.0 (98-107) mmol/L Carbon Dioxide 27 26 (22-30) mmol/L BUN 13 13 (9-20) mg/dL Creatinine 0.8 0.8 (0.8-1.5) mg/dL Glucose 98 99 (75-100) mg/dL Calcium 7.4 L 7.4 L (8.4-10.2) mg/dL Adrenal panel 05/21/18 05/21/18 Range/Units 08:19 08:19 Sodium 143 144 (137-145) mmol/L Potassium 3.9 D 3.9 (3.6-5.0) mmol/L Chloride 106.6 107.0 (98-107) mmol/L Carbon Dioxide 27 26 (22-30) mmol/L BUN 13 13 (9-20) mg/dL Creatinine 0.8 0.8 (0.8-1.5) mg/dL Glucose 98 99 (75-100) mg/dL Calcium 7.4 L 7.4 L (8.4-10.2) mg/dL Total Bilirubin 0.50 (0.1-1.2) mg/dL AST 33 (5-40) units/L ALT 119 H (7-56) units/L Alkaline Phosphatase 166 H (35-129) units/L Total Protein 5.3 L (6.3-8.2) g/dL Albumin 2.1 L (3.9-5) g/dL
--- NOTE | 2018-05-21 14:59 | Progress Note ---
Assessment and Plan Assessment and plan: Patient is 72 yo with history of perforated ulcer, enterocutanous fistula on TPN. He presented with gen weakness, lethargy, confusion , fever. he was evaluated in ED diagnosed with PICC line sepsis, started on iv Abx admitted. Blood cultures / confirmed E. faecalis. He was evaluated by ID, Surgeon. He was initially on Daptomycin, now put on Ampicillin iv. Picc was removed. Repeat cultures neg so for new PICC tomorrow and home on iv Unasyn. He will follow with Surgeon at [place] for management of enterocutanous fistula. Poss dc in 1-2 days Sepsis due to line sepsis Admitted Started on iv Antibiotics ID Physician following Blood cultures growing E. faecalis Started on Ampicillin today. Was on daptomycin Started on PPN UTI Due to Klebsiella pneumonia ESBL Contact isolation Enterocutanous fistula Surgeon following Toxic metabolic encephalopathy due to sepsis Confused Hypertensive urgency Monitor BP Start Clonidine patch Hydralazine iv prn FEN Started on PPN hyperlipidemia Full code status History Interval history: Altered mental status,confusion Fever Hospitalist Physical - Physical exam Narrative exam: GEN: Not in acute distress, lying in bed, HEENT: Normocephalic, atraumatic, Neck: supple, No JVD Heart;S1 and S2 reg, no murmurs,rubs or gallop Lungs: Clear to auscultation bilat, no crackles, no wheeze Abd:soft, mild tender, dressing over midline at site of Enterocutanous fistula, normal bowel sounds Ext: No edema, no clubbing, no cyanosis Neuro: Awake,alert,confused,moves all ext Psych: normal mood - Constitutional Vitals: Temp Pulse Resp BP Pulse Ox 97.4 F L 60 18 170/78 99 05/21/18 11:32 05/21/18 04:00 05/21/18 11:32 05/21/18 11:32 05/21/18 01:20 General appearance: Present: no acute distress Results - Labs CBC & Chem 7: 05/21/18 08:19 05/21/18 08:19 Labs: Laboratory Last Values WBC 5.7 K/mm3 (4.5-11.0) 05/21/18 08:19 RBC 3.65 M/mm3 (3.65-5.03) 05/21/18 08:19 Hgb 9.7 gm/dl (11.8-15.2) L 05/21/18 08:19 Hct 29.9 % (35.5-45.6) L 05/21/18 08:19 MCV 82 fl (84-94) L 05/21/18 08:19 MCH 27 pg (28-32) L 05/21/18 08:19 MCHC 32 % (32-34) 05/21/18 08:19 RDW 16.6 % (13.2-15.2) H 05/21/18 08:19 Plt Count 257 K/mm3 (140-440) 05/21/18 08:19 Lymph % (Auto) 16.6 % (13.4-35.0) 05/18/18 04:45 [place] % (Auto) 9.6 % (0.0-7.3) H 05/18/18 04:45 Eos % (Auto) 0.3 % (0.0-4.3) 05/18/18 04:45 Baso % (Auto) 0.5 % (0.0-1.8) 05/18/18 04:45 Lymph # 0.8 K/mm3 (1.2-5.4) L 05/18/18 04:45 [place] # 0.5 K/mm3 (0.0-0.8) 05/18/18 04:45 Eos # 0.0 K/mm3 (0.0-0.4) 05/18/18 04:45 Baso # 0.0 K/mm3 (0.0-0.1) 05/18/18 04:45 Seg Neutrophils % 73.0 % (40.0-70.0) H 05/18/18 04:45 Seg Neutrophils # 3.6 K/mm3 (1.8-7.7) 05/18/18 04:45 PT 15.6 Sec. (12.2-14.9) H 05/16/18 11:39 INR 1.17 (0.87-1.13) H 05/16/18 11:39 APTT 31.4 Sec. (24.2-36.6) 05/16/18 11:39 Sodium 144 mmol/L (137-145) 05/21/18 08:19 Potassium 3.9 mmol/L (3.6-5.0) 05/21/18 08:19 Chloride 107.0 mmol/L (98-107) 05/21/18 08:19 Carbon Dioxide 26 mmol/L (22-30) 05/21/18 08:19 Anion Gap 15 mmol/L 05/21/18 08:19 BUN 13 mg/dL (9-20) 05/21/18 08:19 Creatinine 0.8 mg/dL (0.8-1.5) 05/21/18 08:19 Estimated GFR > 60 ml/min 05/21/18 08:19 BUN/Creatinine Ratio 16 % 05/21/18 08:19 Glucose 99 mg/dL (75-100) 05/21/18 08:19 POC Glucose 103 (70-105) 05/21/18 13:18 Hemoglobin A1c 5.6 % (4-6) 05/17/18 06:00 Lactic Acid 0.90 mmol/L (0.7-2.0) 05/16/18 14:30 Calcium 7.4 mg/dL (8.4-10.2) L 05/21/18 08:19 Phosphorus 3.40 mg/dL (2.5-4.5) 05/21/18 08:19 Magnesium 2.00 mg/dL (1.7-2.3) 05/21/18 08:19 Total Bilirubin 0.50 mg/dL (0.1-1.2) 05/21/18 08:19 AST 33 units/L (5-40) 05/21/18 08:19 ALT 119 units/L (7-56) H 05/21/18 08:19 Alkaline Phosphatase 166 units/L (35-129) H 05/21/18 08:19 Total Creatine Kinase 43 units/L (55-170) L 05/16/18 11:39 Troponin T < 0.010 ng/mL (0.00-0.029) 05/16/18 11:39 Total Protein 5.3 g/dL (6.3-8.2) L 05/21/18 08:19 Albumin 2.1 g/dL (3.9-5) L 05/21/18 08:19 Albumin/Globulin Ratio 0.7 % 05/21/18 08:19 Triglycerides 79 mg/dL (2-149) 05/20/18 08:06 Urine Color Yellow (Yellow) 05/16/18 12:23 Urine Turbidity Slightly-cloudy (Clear) 05/16/18 12:23 Urine pH 7.0 (5.0-7.0) 05/16/18 12:23 Ur Specific [place] 1.013 (1.003-1.030) 05/16/18 12:23 Urine Protein 30 mg/dl mg/dL (Negative) 05/16/18 12:23 Urine Glucose (UA) Neg mg/dL (Negative) 05/16/18 12:23 Urine Ketones Neg mg/dL (Negative) 05/16/18 12:23 Urine Blood Neg (Negative) 05/16/18 12:23 Urine Nitrite Neg (Negative) 05/16/18 12:23 Urine Bilirubin Neg (Negative) 05/16/18 12:23 Urine Urobilinogen < 2.0 mg/dL (<2.0) 05/16/18 12:23 Ur Leukocyte Esterase Neg (Negative) 05/16/18 12:23 Urine WBC (Auto) 2.0 /HPF (0.0-6.0) 05/16/18 12:23 Urine RBC (Auto) 1.0 /HPF (0.0-6.0) 05/16/18 12:23 U Epithel Cells (Auto) 1.0 /HPF (0-13.0) 05/16/18 12:23 Urine Bacteria (Auto) 4+ /HPF (Negative) 05/16/18 12:23 Urine Mucus Few /HPF 05/16/18 12:23 Vancomycin Trough 37.9 ug/mL (5.0-20.0) H 05/18/18 14:36 Blood Type AB POSITIVE 05/19/18 12:56 Antibody Screen Negative 05/19/18 12:56 Crossmatch See Detail 05/19/18 12:56 Active Medications - Current Medications Current Medications: Generic Name Dose Route Start Last Admin Trade Name Freq PRN Reason Stop Dose Admin Acetaminophen 650 mg 05/17/18 03:18 05/17/18 21:42 Tylenol PO 650 mg Q4H PRN Administration Pain MILD(1-3)/Fever >100.5/CHACON Enoxaparin Sodium 40 mg 05/17/18 22:00 05/20/18 23:07 Lovenox SUB-Q 40 mg QDAY@2200 JOHN Administration Famotidine 20 mg 03/14/19 04:00 05/21/18 13:13 Pepcid IV 20 mg BID JOHN Administration Hydromorphone HCl 0.5 mg 05/17/18 03:18 Dilaudid IV Q3H PRN Pain , Severe (7-10) Dextrose/Sodium Chloride 1,000 mls @ 75 mls/hr 05/19/18 09:00 D5/0.45ns IV DIRECT JOHN Amino Acids/Electrolytes/Dextrose 2,400 mls @ 100 mls/hr 05/20/18 20:00 05/20/18 23:08 Tpn Adult IV 05/21/18 19:59 100 mls/hr DAILY@1999 [facility] Administration Protocol Amino Acids/Electrolytes/Dextrose 2,400 mls @ 100 mls/hr 05/21/18 20:00 Tpn Adult IV 05/22/18 19:59 DAILY@1999 [facility] Protocol Ampicillin Sodium 2 gm in 100 mls @ 100 mls/hr 05/21/18 14:00 Polycillin/Ns 2 Gm/100 Ml IV Q4HR [facility] Ondansetron HCl 4 mg 05/17/18 03:18 Zofran IV Q8H PRN Nausea And Vomiting Sodium Chloride 10 ml 05/17/18 10:00 05/21/18 13:13 Sodium Chloride Flush Syringe 10 Ml IV 10 ml BID JOHN Administration Sodium Chloride 10 ml 05/17/18 03:18 Sodium Chloride Flush Syringe 10 Ml IV PRN PRN LINE FLUSH Nutrition/Malnutrition Assess - Dietary Evaluation Nutrition/Malnutrition Findings: Nutrition Notes Start: 05/17/18 11:28 Freq: Status: Active Protocol: Document 05/20/18 15:13 (Rec: 05/20/18 15:21 [id number]) Nutrition Notes Initial or Follow up Reassessment Current Diagnosis Diabetes,Hypertension, Hyperlipidemia Other Pertinent Diagnosis Enterocutaneous fistula, Line sepsis, UTI, Toxic metabolic encephalopathy Current Diet TPN/PPN Labs/Tests K 3.2, Mg 1.6 Pertinent Medications KCl 20 mEq (05/19/18 at 22:16) Height 6 ft 4 in Weight 74.7 kg [place] Body Weight (kg) 91.81 BMI 20.0 Subjective/Other Information PPN day 2. Percent of energy/protein needs met: 30%/75% #1 Nutrition Diagnosis Inadequate oral intake Diagnosis Progress(for reassessment Continues documentation) Is patient on ventilator? No Is Patient Ambulatory and/or Out of Bed No REE-([facility]-confined to bed) 1918.308 Kcal/Kg value to use for calculation 30 Approximate Energy Requirements Using 2241 kcal/Kg Calculation Used for Recommendations [facility] Additional Notes Protein needs: 110-124g (1.5-1 .7g/kg) Fluid needs: 1ml/kcal Nutrition Intervention Nutrition Support: Continue PPN at 100 ml/hr: 4.6 % AA, 120 mEq K, 15 mEq Mg, MVI Kcal 780 Protein (gm) 110 Carbohydrates (gm) 100 Fat (gm) 0 Fluid (mL) 2,400 Goal #1 Meet nutrition needs as best possible via PPN Anticipated Discharge Needs: unable to determine at this time Follow-Up By: 05/21/18 Additional Comments Follow for BMP, Mg, P
[2018-05-21] MEDS ORDERED: CATAPRES-TTS PATCH TD SCH (17:00)
[2018-05-21] MEDS: APRESOLINE IV PRN (19:05)
[2018-05-21] MEDS: AMPICILLIN/NS 2 GM/100 ML 2 GM/100 ML BAG IV SCH ×3 (19:06→22:21)
[2018-05-21] MEDS: CATAPRES-TTS PATCH TD SCH (19:07)
[2018-05-21] MEDS ORDERED: TPN ADULT 2,400 ML IV SCH (20:00)
[2018-05-21] MEDS: LOVENOX SUB-Q SCH (22:20)
[2018-05-22] MEDS: AMPICILLIN/NS 2 GM/100 ML 2 GM/100 ML BAG IV SCH ×6 (03:08→22:24)
[2018-05-22] MEDS: PEPCID IV SCH ×2 (09:49→22:23)
[2018-05-22] MEDS: SODIUM CHLORIDE FLUSH SYRINGE 10 ML IV SCH ×2 (09:50→22:24)
[2018-05-22 10:09] LABS: Hematocrit 30.3 % (35.5-45.6); Hemoglobin 10.2 gm/dl (11.8-15.2); Mean Corpuscular HGB Conc 34 % (32-34); Mean Corpuscular Volume 79 fl (84-94); Platelet Count 269 K/mm3 (140-440); Red Blood Count 3.83 M/mm3 (3.65-5.03); Red Cell Distribution Width 16.8 % (13.2-15.2)
[2018-05-22 10:27] LABS: BUN/Creatinine Ratio 24; Blood Urea Nitrogen 17 mg/dL (9-20); Calcium 7.7 mg/dL (8.4-10.2); Hemolysis Index 19
--- NOTE | 2018-05-22 11:20 | Progress Note ---
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 He is on home TPN through a PICC line since March 2018. Admitted with: #1 Sepsis, Resolved, no leukocytosis with gram-positive bacteremia: Source certainly could be the PICC line. Currently being treated with Vancomycin. #2. Enterococcus Bacteremia: 4 out of 4 bottles. TTE shows no valvular vegetation. #2 Positive urine culture: Patient asymptomatic. UA without significant pyuria. Likely asymptomatic bacteriuria. Urine Culture ESBL Klebsiella #3 EC fistula and malnutrition: on home TPN. EC fistula output is minimal at this time. No abdominal pain. #4. Acute Encephalopathy: continuing, related to bacteremia? Recs: Contact Isolation for ESBL PICC line ordered with IR - IV team unable to secure PICC line Change to Ampicillin 2gms IV every 6 hours Anticipate discharge on Ampicillin 10 gms continuous infusion for 2 weeks ending 06-02-18 Order sent to Case management. Yuni Solomon NP [facility] M: [id number] O:[phone] Subjective Date of service: 05/22/18 Interval history: Patient seen and examined. Acute encephalopathy not improving. at bedside. No acute distress observed. Objective - Exam Narrative Exam: Constitutional: Alert Confused. No acute distress. Cachexia Head, Ears, Nose: Normocephalic, atraumatic. External ears, nose normal Eyes: Conjunctivae/corneas clear. No icterus. No ptosis. Neck: Supple, no meningeal signs Oral: dentition fair, no thrush. Cardiovascular: S1, S2 normal. Respiratory: Good air entry, clear to auscultation bilaterally GI: Soft, non-tender; bowel sounds normal. EC fistula with scant greenish drainage. No peritoneal signs Musculoskeletal: No pedal edema, no cyanosis. Skin: No rash or abscess Hem/Lymphatic: No palpable cervical or supraclavicular nodes. No lymphangitis Psych: Mood ok. Affect normal Neurological: Awake, alert, confused - Constitutional Vitals: Vital Signs Temp Pulse Resp BP Pulse Ox 97.6 F 56 L 18 158/64 99 05/22/18 08:00 05/22/18 08:00 05/22/18 08:00 05/22/18 08:00 05/22/18 08:00 Temperature -Last 24 Hours Temperature 97.6 F Temperature 97.8 F Temperature 97.8 F Temperature 97.3 F Temperature 98.2 F Temperature 97.5 F Temperature 97.4 F - Labs CBC & Chem 7: 05/22/18 09:38 05/22/18 09:38 Labs: Abnormal lab results 05/22/18 05/22/18 05/22/18 Range/Units 08:11 09:38 09:38 Hgb 10.2 L (11.8-15.2) gm/dl Hct 30.3 L (35.5-45.6) % MCV 79 L (84-94) fl MCH 27 L (28-32) pg RDW 16.8 H (13.2-15.2) % Creatinine 0.7 L (0.8-1.5) mg/dL Glucose 118 H (75-100) mg/dL POC Glucose 112 H (70-105) Calcium 7.7 L (8.4-10.2) mg/dL
--- NOTE | 2018-05-22 13:08 | Progress Note ---
Assessment and Plan Pt status quo. spoke with Dr. Velazquez's office and was told that they will f/u with him once d/c'ed. Abd soft. awaiting PICC line re-insertion. also instructed to go directly to [place] if any medical emergency arises. surgically stable Selected Entries 05/22/18 11:28 Temperature 97.2 F L Pulse Rate 66 Respiratory 18 Rate Blood Pressure 162/69 [Left] Laboratory Tests 05/21/18 05/22/18 08:19 09:38 WBC 5.7 5.4 Hgb 9.7 L 10.2 L Hct 29.9 L 30.3 L pt will be followed up in [place] Objective Vital Signs - 12hr 05/22/18 05/22/18 05/22/18 03:59 08:00 11:28 Temperature 97.8 F 97.6 F 97.2 F L Pulse Rate 84 56 L 66 Respiratory 16 18 18 Rate Blood Pressure 170/80 Blood Pressure 158/64 162/69 [Left] O2 Sat by Pulse 100 99 100 Oximetry - Labs 05/22/18 09:38 05/22/18 09:38 Diabetes panel 05/22/18 Range/Units 09:38 Sodium 139 (137-145) mmol/L Potassium 4.3 (3.6-5.0) mmol/L Chloride 106.1 (98-107) mmol/L Carbon Dioxide 24 (22-30) mmol/L BUN 17 (9-20) mg/dL Creatinine 0.7 L (0.8-1.5) mg/dL Glucose 118 H (75-100) mg/dL Calcium 7.7 L (8.4-10.2) mg/dL Calcium panel 05/22/18 Range/Units 09:38 Calcium 7.7 L (8.4-10.2) mg/dL Phosphorus 3.40 (2.5-4.5) mg/dL Pituitary panel 05/22/18 Range/Units 09:38 Sodium 139 (137-145) mmol/L Potassium 4.3 (3.6-5.0) mmol/L Chloride 106.1 (98-107) mmol/L Carbon Dioxide 24 (22-30) mmol/L BUN 17 (9-20) mg/dL Creatinine 0.7 L (0.8-1.5) mg/dL Glucose 118 H (75-100) mg/dL Calcium 7.7 L (8.4-10.2) mg/dL Adrenal panel 05/22/18 Range/Units 09:38 Sodium 139 (137-145) mmol/L Potassium 4.3 (3.6-5.0) mmol/L Chloride 106.1 (98-107) mmol/L Carbon Dioxide 24 (22-30) mmol/L BUN 17 (9-20) mg/dL Creatinine 0.7 L (0.8-1.5) mg/dL Glucose 118 H (75-100) mg/dL Calcium 7.7 L (8.4-10.2) mg/dL
[2018-05-22] MEDS ORDERED: TPN ADULT 2,400 ML IV SCH (20:00)
[2018-05-22] MEDS: LOVENOX SUB-Q SCH (22:23)
[2018-05-23] MEDS: AMPICILLIN/NS 2 GM/100 ML 2 GM/100 ML BAG IV SCH ×2 (00:21→06:04)
[2018-05-23] MEDS: APRESOLINE IV PRN (06:32)
--- NOTE | 2018-05-23 08:33 | Progress Note ---
Assessment and Plan Pt resting comfortably Abd soft surgically stable uncontrolled HTN status quo Selected Entries 05/23/18 05:55 Temperature 98.4 F Pulse Rate 91 H Respiratory 20 Rate Blood Pressure 206/93 Objective Vital Signs - 12hr 05/22/18 05/22/18 05/23/18 20:39 23:30 03:00 Temperature 98.5 F 98.1 F Pulse Rate 70 66 70 Respiratory 20 18 Rate Blood Pressure 183/88 168/74 O2 Sat by Pulse 98 100 Oximetry 05/23/18 05:55 Temperature 98.4 F Pulse Rate 91 H Respiratory 20 Rate Blood Pressure 206/93 O2 Sat by Pulse 100 Oximetry - Labs 05/22/18 09:38 05/22/18 09:38 Diabetes panel 05/22/18 Range/Units 09:38 Sodium 139 (137-145) mmol/L Potassium 4.3 (3.6-5.0) mmol/L Chloride 106.1 (98-107) mmol/L Carbon Dioxide 24 (22-30) mmol/L BUN 17 (9-20) mg/dL Creatinine 0.7 L (0.8-1.5) mg/dL Glucose 118 H (75-100) mg/dL Calcium 7.7 L (8.4-10.2) mg/dL Calcium panel 05/22/18 Range/Units 09:38 Calcium 7.7 L (8.4-10.2) mg/dL Phosphorus 3.40 (2.5-4.5) mg/dL Pituitary panel 05/22/18 Range/Units 09:38 Sodium 139 (137-145) mmol/L Potassium 4.3 (3.6-5.0) mmol/L Chloride 106.1 (98-107) mmol/L Carbon Dioxide 24 (22-30) mmol/L BUN 17 (9-20) mg/dL Creatinine 0.7 L (0.8-1.5) mg/dL Glucose 118 H (75-100) mg/dL Calcium 7.7 L (8.4-10.2) mg/dL Adrenal panel 05/22/18 Range/Units 09:38 Sodium 139 (137-145) mmol/L Potassium 4.3 (3.6-5.0) mmol/L Chloride 106.1 (98-107) mmol/L Carbon Dioxide 24 (22-30) mmol/L BUN 17 (9-20) mg/dL Creatinine 0.7 L (0.8-1.5) mg/dL Glucose 118 H (75-100) mg/dL Calcium 7.7 L (8.4-10.2) mg/dL
[2018-05-23] MEDS: SODIUM CHLORIDE FLUSH SYRINGE 10 ML IV SCH ×2 (10:53→22:21)
[2018-05-23] MEDS: PEPCID IV SCH ×2 (10:53→22:21)
[2018-05-23] MEDS ORDERED: HEPARIN/NS 5000 UNIT/500ML(CATH LAB) 500 ML IR ONE (13:05)
[2018-05-23] MEDS ORDERED: ANCEF/STERILE WATER 2 GM/20 ML 2 GM/20 ML SYRINGE IV ONE (13:33)
[2018-05-23] MEDS ORDERED: NACL 0.9% 250ML 250 ML ONE (13:43)
[2018-05-23] MEDS: VERSED ONE ×3 (13:50→14:08)
[2018-05-23] MEDS: XYLOCAINE 2% INFILTRATI ONE ×3 (13:50→14:07)
[2018-05-23] MEDS: SUBLIMAZE ONE ×3 (13:50→14:08)
--- NOTE | 2018-05-23 13:56 | Progress Note ---
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 He is on home TPN through a PICC line since March 2018. Admitted with: #1 Sepsis, Resolved, no leukocytosis with gram-positive bacteremia: Source certainly could be the PICC line. Currently being treated with Vancomycin. #2. Enterococcus Bacteremia: 4 out of 4 bottles. TTE shows no valvular vegetation. #2 Positive urine culture: Patient asymptomatic. UA without significant pyuria. Likely asymptomatic bacteriuria. Urine Culture ESBL Klebsiella #3 EC fistula and malnutrition: on home TPN. EC fistula output is minimal at this time. No abdominal pain. #4. Acute Encephalopathy: continuing, related to bacteremia- improving Recs: Contact Isolation for ESBL PICC line ordered with IR - IV team unable to secure PICC line Continue Ampicillin 2gms IV every 6 hours Anticipate discharge on Ampicillin 10 gms continuous infusion for 2 weeks ending 06-02-18 Order sent to Case management. Yuni Solomon NP [facility] M: [id number] O:[phone] Subjective Date of service: 05/23/18 Interval history: Patient seen and examined. Acute encephalopathy improving. No acute distress observed. at bedside. Objective - Exam Narrative Exam: Constitutional: Alert. Awake. No acute distress. Cachexia Head, Ears, Nose: Normocephalic, atraumatic. External ears, nose normal Eyes: Conjunctivae/corneas clear. No icterus. No ptosis. Neck: Supple, no meningeal signs Oral: dentition fair, no thrush. Cardiovascular: S1, S2 normal. Respiratory: Good air entry, clear to auscultation bilaterally GI: Soft, non-tender; bowel sounds normal. EC fistula with scant greenish drainage. No peritoneal signs Musculoskeletal: No pedal edema, no cyanosis. Skin: No rash or abscess Hem/Lymphatic: No palpable cervical or supraclavicular nodes. No lymphangitis Psych: Mood ok. Affect normal Neurological: Awake, alert, oriented to self. - Constitutional Vitals: Vital Signs Temp Pulse Resp BP Pulse Ox 97.3 F L 85 16 155/72 100 05/23/18 09:43 05/23/18 09:43 05/23/18 09:43 05/23/18 09:43 05/23/18 09:43 Temperature -Last 24 Hours Temperature 97.3 F Temperature 98.4 F Temperature 98.1 F Temperature 98.5 F Temperature 97.4 F - Labs CBC & Chem 7: 05/22/18 09:38 05/22/18 09:38
--- NOTE | 2018-05-23 14:24 | Operative Report ---
Operative Report Operative Report: EXAM: 1. Ultrasound-guided puncture of the right internal jugular vein 2. Fluoroscopic-guided placement of a right internal jugular tunneled cuffed smallbore dual-lumen catheter. DATE: 05/23/18 INDICATION: 72-year-old male with gastric perforations requiring chronic TPN with antibiotics. MEDICATIONS: Please see nursing report for full details. DEVICES: 5 [place] dual-lumen power PICC catheter OSTEOPATHIC PHYSICIAN: ANGELO ARAIZA MD CONTRAST: None PROCEDURE: The risks, benefits, and alternatives were discussed and informed consent was obtained. The patient was transported to the angiography suite in satisfactory/stable condition and was transported onto the angiography table. The patient's right internal jugular vein was assessed with ultrasound and determined to be patent prior to procedure. The patient was prepped and draped in a sterile fashion. The puncture site was anesthetized. Under sonographic guidance, the right internal jugular vein was punctured with a 21-gauge micropuncture needle and a 0.018 inch wire was advanced into the inferior vena cava. A suitable exit site was identified on the patient's chest inferior and lateral to the venotomy. The site was anesthetized with local anesthetic and the track was anesthetized. Dermatotomy was made. The 5 [place] dual-lumen smallbore catheter was tunneled between the dermatotomy to the venotomy with the assistance of the peel-away sheath, micropuncture needle, and 0.018 inch wire. Over 0.018 inch wire, the transitional dilator was exchanged for a 5 [place] peel-away sheath. The wire was used to sherrill intravascular distance and removed. The catheter was cut to appropriate size. The catheter was advanced through the peel-away sheath and positioned centrally under fluoroscopic guidance. The peel-away sheath was removed. 4-0 Vicryl suture was used to close the venotomy and Dermabond was then applied. 3-0 Ethilon suture was used to secure the catheter at the dermatotomy. The catheter was charged with heparinized saline. Biopatch and sterile dressing applied The patient was transferred from the angiography suite back to the floor in stable condition. FINDINGS: 1. Excellent flow was obtained through the dual lumen smallbore tunneled catheter. 2. The catheter tip is in the right atrium. IMPRESSION: 1. Successful ultrasound and fluoroscopically guided placement of a right internal jugular tunneled cuffed dual-lumen catheter.
--- NOTE | 2018-05-23 14:26 | Event Note ---
Date: 05/23/18 Discussed situation with family, patient and girlfriend. Given recurrent bacteremia from line source, recommend tunneled catheter and possible Zimmerman catheter to allow for alcohol locks. Unfortunately, family will need two seperate lumens for antibiotics and TPN. Zimmerman catheters that we use only have one lumen. Since they need 2 lumens, will place a tunneled PICC line.
--- NOTE | 2018-05-23 18:06 | Progress Note ---
Assessment and Plan Sepsis due to line sepsis On iv Antibiotics ID Physician following Blood cultures growing E. faecalis Started on Ampicillin today. Was on daptomycin Started on PPN UTI Due to Klebsiella pneumonia ESBL Contact isolation Enterocutanous fistula Surgeon following Toxic metabolic encephalopathy due to sepsis Confused Hypertensive urgency Monitor BP Start Clonidine patch Hydralazine iv prn FEN Started on PPN hyperlipidemia Full code status Subjective Date of service: 05/23/18 Principal diagnosis: Line sepsis Interval history: Afebrile Objective - Constitutional Vitals: Vital Signs - 12hr 05/23/18 09:43 Temperature 97.3 F L Pulse Rate 85 Respiratory 16 Rate Blood Pressure 155/72 O2 Sat by Pulse 100 Oximetry General appearance: Present: no acute distress, well-nourished - EENT Eyes: PERRL, EOM intact ENT: hearing intact, clear oral mucosa Ears: bilateral: normal - Neck Neck: supple, normal ROM - Respiratory Respiratory effort: normal Respiratory: bilateral: CTA - Breasts Breasts: normal - Cardiovascular Rhythm: regular Heart Sounds: Present: S1 & S2. Absent: gallop, rub Extremities: pulses intact, No edema, normal color, Full ROM - Gastrointestinal General gastrointestinal: Present: soft, non-tender, non-distended, normal bowel sounds - Genitourinary Male genitourinary: normal - Integumentary Integumentary: clear, warm, dry - Musculoskeletal Musculoskeletal: 1, strength equal bilaterally - Neurologic Neurologic: moves all extremities - Psychiatric Psychiatric: memory intact, appropriate mood/affect, intact judgment & insight - Labs CBC & Chem 7: 05/22/18 09:38 05/24/18 05:00
[2018-05-23] MEDS ORDERED: INTRALIPID 20% 250 ML IV SCH (20:00)
[2018-05-23] MEDS ORDERED: TPN ADULT 2,400 ML IV SCH (20:00)
[2018-05-23] MEDS: LOVENOX SUB-Q SCH (22:21)
[2018-05-24] MEDS: AMPICILLIN/NS 2 GM/100 ML 2 GM/100 ML BAG IV SCH ×6 (00:19→19:09)
[2018-05-24] MEDS: DILAUDID IV PRN ×2 (00:37→19:16)
[2018-05-24 06:01] LABS: BUN/Creatinine Ratio 19; Blood Urea Nitrogen 19 mg/dL (9-20); Calcium 8.3 mg/dL (8.4-10.2); Hemolysis Index 1
--- NOTE | 2018-05-24 09:26 | Progress Note ---
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 He is on home TPN through a PICC line since March 2018. Admitted with: #1 Sepsis, Resolved, no leukocytosis with gram-positive bacteremia: Source certainly could be the PICC line. Currently being treated with Vancomycin. #2. Enterococcus Bacteremia: 4 out of 4 bottles. TTE shows no valvular vegetation. #2 Positive urine culture: Patient asymptomatic. UA without significant pyuria. Likely asymptomatic bacteriuria. Urine Culture ESBL Klebsiella #3 EC fistula and malnutrition: on home TPN. EC fistula output is minimal at this time. No abdominal pain. #4. Acute Encephalopathy: continuing, related to bacteremia- improving Recs: Contact Isolation for ESBL Continue Ampicillin 2gms IV every 6 hours Anticipate discharge on Ampicillin 10 gms continuous infusion for 2 weeks ending 06-02-18 Order sent to Case management. Yuni Solomon NP [facility] M: [id number] O:[phone] Subjective Date of service: 05/24/18 Interval history: Patient seen and examined. Acute encephalopathy improving. No acute distress observed. at bedside. Objective - Exam Narrative Exam: Constitutional: Alert. Awake. No acute distress. Cachexia Head, Ears, Nose: Normocephalic, atraumatic. External ears, nose normal Eyes: Conjunctivae/corneas clear. No icterus. No ptosis. Neck: Supple, no meningeal signs Oral: dentition fair, no thrush. Cardiovascular: S1, S2 normal. Respiratory: Good air entry, clear to auscultation bilaterally GI: Soft, non-tender; bowel sounds normal. EC fistula with scant greenish drainage. No peritoneal signs Musculoskeletal: No pedal edema, no cyanosis. Skin: No rash or abscess Hem/Lymphatic: No palpable cervical or supraclavicular nodes. No lymphangitis Psych: Mood ok. Affect normal Neurological: Awake, alert, oriented to self. Lines: R tunneled PICC - Constitutional Vitals: Vital Signs Temp Pulse Resp BP Pulse Ox 98.0 F 78 20 176/93 98 05/24/18 07:38 05/23/18 23:16 05/24/18 07:38 05/24/18 07:38 05/24/18 08:38 Temperature -Last 24 Hours Temperature 98.0 F Temperature 97.4 F Temperature 97.6 F Temperature 98.0 F Temperature 97.7 F Temperature 97.3 F - Labs CBC & Chem 7: 05/22/18 09:38 05/24/18 05:00 Labs: Abnormal lab results 05/24/18 Range/Units 05:00 Calcium 8.3 L (8.4-10.2) mg/dL
[2018-05-24] MEDS: PEPCID IV SCH ×2 (10:21→22:50)
--- NOTE | 2018-05-24 11:22 | Progress Note ---
Assessment and Plan Pt status quo. no compl. Abd soft. CVP successfully inserted yesterday. surgically stable will follow prn pt to be followed back in [place] under Dr. Velazquez's service Objective Vital Signs - 12hr 05/24/18 05/24/18 05/24/18 00:37 01:07 02:39 Temperature 97.4 F L Respiratory 18 18 20 Rate Blood Pressure 177/83 O2 Sat by Pulse Oximetry 05/24/18 05/24/18 05/24/18 07:38 08:38 09:36 Temperature 98.0 F Respiratory 20 18 Rate Blood Pressure 176/93 O2 Sat by Pulse 98 Oximetry - Labs 05/22/18 09:38 05/24/18 05:00 Diabetes panel 05/24/18 Range/Units 05:00 Sodium 138 (137-145) mmol/L Potassium 4.5 (3.6-5.0) mmol/L Chloride 103.4 (98-107) mmol/L Carbon Dioxide 25 (22-30) mmol/L BUN 19 (9-20) mg/dL Creatinine 1.0 (0.8-1.5) mg/dL Glucose 92 (75-100) mg/dL Calcium 8.3 L (8.4-10.2) mg/dL Calcium panel 05/24/18 Range/Units 05:00 Calcium 8.3 L (8.4-10.2) mg/dL Phosphorus 4.40 (2.5-4.5) mg/dL Pituitary panel 05/24/18 Range/Units 05:00 Sodium 138 (137-145) mmol/L Potassium 4.5 (3.6-5.0) mmol/L Chloride 103.4 (98-107) mmol/L Carbon Dioxide 25 (22-30) mmol/L BUN 19 (9-20) mg/dL Creatinine 1.0 (0.8-1.5) mg/dL Glucose 92 (75-100) mg/dL Calcium 8.3 L (8.4-10.2) mg/dL Adrenal panel 05/24/18 Range/Units 05:00 Sodium 138 (137-145) mmol/L Potassium 4.5 (3.6-5.0) mmol/L Chloride 103.4 (98-107) mmol/L Carbon Dioxide 25 (22-30) mmol/L BUN 19 (9-20) mg/dL Creatinine 1.0 (0.8-1.5) mg/dL Glucose 92 (75-100) mg/dL Calcium 8.3 L (8.4-10.2) mg/dL
--- NOTE | 2018-05-24 17:51 | Progress Note ---
Assessment and Plan Sepsis due to line sepsis On iv Antibiotics ID Physician following Blood cultures growing E. faecalis Started on Ampicillin . Was on daptomycin Started on PPN UTI Due to Klebsiella pneumonia ESBL Contact isolation Enterocutanous fistula Surgeon following Toxic metabolic encephalopathy due to sepsis Confused Hypertensive urgency Monitor BP Start Clonidine patch Hydralazine iv prn FEN Started on PPN hyperlipidemia Full code status Subjective Date of service: 05/23/18 Principal diagnosis: Line sepsis Interval history: Afebrile Objective - Constitutional Vitals: Vital Signs - 12hr 05/24/18 05/24/18 05/24/18 07:38 08:38 09:36 Temperature 98.0 F Pulse Rate Respiratory 20 18 Rate Blood Pressure 176/93 O2 Sat by Pulse 98 Oximetry 05/24/18 13:18 Temperature 98.0 F Pulse Rate 69 Respiratory 22 Rate Blood Pressure 169/76 O2 Sat by Pulse 100 Oximetry General appearance: Present: no acute distress, well-nourished - EENT Eyes: PERRL, EOM intact ENT: hearing intact, clear oral mucosa Ears: bilateral: normal - Neck Neck: supple, normal ROM - Respiratory Respiratory effort: normal Respiratory: bilateral: CTA - Breasts Breasts: normal - Cardiovascular Heart rate: 78 Rhythm: regular Heart Sounds: Present: S1 & S2. Absent: gallop, rub Extremities: pulses intact, No edema, normal color, Full ROM - Gastrointestinal General gastrointestinal: Present: soft, non-tender, non-distended, normal bowel sounds - Genitourinary Male genitourinary: normal - Integumentary Integumentary: clear, warm, dry - Musculoskeletal Musculoskeletal: 1, strength equal bilaterally - Neurologic Neurologic: moves all extremities - Psychiatric Psychiatric: memory intact, appropriate mood/affect, intact judgment & insight - Labs CBC & Chem 7: 05/22/18 09:38 05/24/18 05:00 Labs: Abnormal lab results 05/24/18 Range/Units 05:00 Calcium 8.3 L (8.4-10.2) mg/dL
[2018-05-24] MEDS ORDERED: TPN ADULT 2,400 ML IV SCH (20:00)
[2018-05-24] MEDS: LOVENOX SUB-Q SCH (22:50)
[2018-05-24] MEDS: SODIUM CHLORIDE FLUSH SYRINGE 10 ML IV SCH (22:51)
[2018-05-25] MEDS: AMPICILLIN/NS 2 GM/100 ML 2 GM/100 ML BAG IV SCH ×4 (00:50→18:13)
--- NOTE | 2018-05-25 05:55 | Progress Note ---
Assessment and Plan Sepsis due to line sepsis On iv Antibiotics ID Physician following Blood cultures growing E. faecalis Started on Ampicillin . Was on daptomycin Started on PPN UTI Due to Klebsiella pneumonia ESBL Contact isolation Enterocutanous fistula Surgeon following Toxic metabolic encephalopathy due to sepsis Confused Hypertensive urgency Monitor BP Start Clonidine patch Hydralazine iv prn FEN Started on PPN hyperlipidemia For Discharge tomorrow Subjective Date of service: 05/24/18 Principal diagnosis: Line sepsis Interval history: Afebrile Objective - Constitutional Vitals: Vital Signs - 12hr 05/24/18 05/24/18 05/24/18 19:46 19:50 22:00 Temperature 97.4 F L Pulse Rate 121 H 69 Respiratory 20 18 18 Rate Blood Pressure 183/92 O2 Sat by Pulse 100 96 Oximetry 05/25/18 05/25/18 02:14 02:47 Temperature 98.6 F Pulse Rate 93 H Respiratory 20 Rate Blood Pressure 163/95 O2 Sat by Pulse 95 Oximetry General appearance: Present: no acute distress, well-nourished - EENT Eyes: PERRL, EOM intact ENT: hearing intact, clear oral mucosa Ears: bilateral: normal - Neck Neck: supple, normal ROM - Respiratory Respiratory effort: normal Respiratory: bilateral: CTA - Breasts Breasts: normal - Cardiovascular Heart rate: 80 Rhythm: regular Heart Sounds: Present: S1 & S2. Absent: gallop, rub Extremities: pulses intact, No edema, normal color, Full ROM - Gastrointestinal General gastrointestinal: Present: soft, non-tender, non-distended, normal bowel sounds Rectal Exam: deferred - Genitourinary Male genitourinary: normal - Integumentary Integumentary: clear, warm, dry - Musculoskeletal Musculoskeletal: 1, strength equal bilaterally - Neurologic Neurologic: moves all extremities - Psychiatric Psychiatric: memory intact, appropriate mood/affect, intact judgment & insight - Allied health notes Allied health notes reviewed: nursing, case management - Labs CBC & Chem 7: 05/22/18 09:38 05/24/18 05:00 Labs: Abnormal lab results 05/24/18 Range/Units 05:00 Calcium 8.3 L (8.4-10.2) mg/dL
[2018-05-25 07:09] LABS: Basophils # (Auto) 0.1 K/mm3 (0.0-0.1); Basophils % (Auto) 0.7 % (0.0-1.8); Eosinophils # (Auto) 0.4 K/mm3 (0.0-0.4); Eosinophils % (Auto) 3.7 % (0.0-4.3); Hematocrit 31.4 % (35.5-45.6); Hemoglobin 10.3 gm/dl (11.8-15.2); Lymphocytes # (Auto) 3.3 K/mm3 (1.2-5.4); Lymphocytes % (Auto) 32.8 % (13.4-35.0); Mean Corpuscular HGB Conc 33 % (32-34); Mean Corpuscular Volume 81 fl (84-94); Monocytes # (Auto) 0.8 K/mm3 (0.0-0.8); Monocytes % (Auto) 7.6 % (0.0-7.3); Red Cell Distribution Width 16.9 % (13.2-15.2)
[2018-05-25 07:10] LABS: Platelet Count 326 K/mm3 (140-440)
[2018-05-25 07:30] LABS: Alanine Aminotransferase 57 units/L (7-56); Albumin 2.5 g/dL (3.9-5); BUN/Creatinine Ratio 21; Blood Urea Nitrogen 23 mg/dL (9-20); Calcium 8.9 mg/dL (8.4-10.2); Hemolysis Index 39
[2018-05-25] MEDS ORDERED: CALCIUM GLUCONATE 2,000 MG in NACL 0.9% 100 ML IV NR (08:27)
--- NOTE | 2018-05-25 08:52 | Progress Note ---
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 He is on home TPN through a PICC line since March 2018. Admitted with: #1 Sepsis, Resolved, no leukocytosis with gram-positive bacteremia: Source certainly could be the PICC line. Currently being treated with Vancomycin. #2. Enterococcus Bacteremia: 4 out of 4 bottles. TTE shows no valvular vegetation. #2 Positive urine culture: Patient asymptomatic. UA without significant pyuria. Likely asymptomatic bacteriuria. Urine Culture ESBL Klebsiella #3 EC fistula and malnutrition: on home TPN. EC fistula output is minimal at this time. No abdominal pain. #4. Acute Encephalopathy: continuing, related to bacteremia- improving Recs: Contact Isolation for ESBL Continue Ampicillin 2gms IV every 6 hours Anticipate discharge on Ampicillin 10 gms continuous infusion for 2 weeks ending 06-02-18 Order sent to Case management. Yuni Solomon NP [facility] M: [id number] O:[phone] Subjective Date of service: 05/25/18 Principal diagnosis: Line sepsis Interval history: Patient seen and examined. Acute encephalopathy improving. No acute distress observed. at bedside. Objective - Exam Narrative Exam: Constitutional: Alert. Awake. No acute distress. Cachexia Head, Ears, Nose: Normocephalic, atraumatic. External ears, nose normal Eyes: Conjunctivae/corneas clear. No icterus. No ptosis. Neck: Supple, no meningeal signs Oral: dentition fair, no thrush. Cardiovascular: S1, S2 normal. Respiratory: Good air entry, clear to auscultation bilaterally GI: Soft, non-tender; bowel sounds normal. EC fistula with scant greenish drainage. No peritoneal signs Musculoskeletal: No pedal edema, no cyanosis. Skin: No rash or abscess Hem/Lymphatic: No palpable cervical or supraclavicular nodes. No lymphangitis Psych: Mood ok. Affect normal Neurological: Awake, alert, oriented to self. Lines: R tunneled PICC - Constitutional Vitals: Vital Signs Temp Pulse Resp BP Pulse Ox 97.5 F L 90 20 143/78 99 05/25/18 08:00 05/25/18 08:00 05/25/18 08:00 05/25/18 08:00 05/25/18 08:00 Temperature -Last 24 Hours Temperature 97.5 F Temperature 98.6 F Temperature 97.4 F Temperature 98.0 F - Labs CBC & Chem 7: 05/25/18 06:48 05/25/18 10:29 Labs: Abnormal lab results 05/25/18 05/25/18 Range/Units 06:48 06:48 Hgb 10.3 L (11.8-15.2) gm/dl Hct 31.4 L (35.5-45.6) % MCV 81 L (84-94) fl MCH 27 L (28-32) pg RDW 16.9 H (13.2-15.2) % [place] % (Auto) 7.6 H (0.0-7.3) % Potassium 6.5 H* D (3.6-5.0) mmol/L BUN 23 H (9-20) mg/dL ALT 57 H (7-56) units/L Albumin 2.5 L (3.9-5) g/dL
[2018-05-25] MEDS: PEPCID IV SCH ×2 (09:19→22:15)
[2018-05-25] MEDS: SODIUM CHLORIDE FLUSH SYRINGE 10 ML IV SCH (14:27)
--- NOTE | 2018-05-25 14:58 | Progress Note ---
Assessment and Plan Sepsis due to line sepsis On iv Antibiotics ID Physician following Blood cultures growing E. faecalis Started on Ampicillin. Started on PPN Contact Isolation for ESBL Continue Ampicillin 2gms IV every 6 hours Anticipate discharge on Ampicillin 10 gms continuous infusion for 2 weeks ending 06-02-18 Order sent to Case management. Talked with SENIOR MANAGER [id number] REGARDING Ampicillin infusion---waiting for approval from [place] shelter case manager UTI Due to Klebsiella pneumonia ESBL Contact isolation Enterocutanous fistula Surgeon following Toxic metabolic encephalopathy due to sepsis Confused Hypertensive urgency Monitor BP Started Clonidine patch Hydralazine iv prn Enterocutaneous Fistula Nothing by mouth Started on PPN hyperlipidemia Disposition: Anticipate discharge on Ampicillin 10 gms continuous infusion for 2 weeks ending 06-02-18 Order sent to Case management. Talked with SENIOR MANAGER [id number]--[place] REGARDING Ampicillin infusion---waiting for approval from [place] shelter case manager Subjective Date of service: 05/25/18 Principal diagnosis: Line sepsis Interval history: Afebrile Objective - Constitutional Vitals: Vital Signs - 12hr 05/25/18 05/25/18 05/25/18 08:00 10:00 13:35 Temperature 97.5 F L 98.1 F Pulse Rate 90 90 89 Respiratory 20 18 Rate Blood Pressure 143/78 179/79 Blood Pressure [Left] O2 Sat by Pulse 99 100 Oximetry 05/25/18 14:00 Temperature Pulse Rate Respiratory Rate Blood Pressure Blood Pressure 159/69 [Left] O2 Sat by Pulse Oximetry General appearance: Present: no acute distress, well-nourished - EENT Eyes: PERRL, EOM intact ENT: hearing intact, clear oral mucosa Ears: bilateral: normal - Neck Neck: supple, normal ROM - Respiratory Respiratory effort: normal Respiratory: bilateral: CTA - Breasts Breasts: normal - Cardiovascular Rhythm: regular Heart Sounds: Present: S1 & S2. Absent: gallop, rub Extremities: pulses intact, No edema, normal color, Full ROM - Gastrointestinal General gastrointestinal: Present: soft, non-tender, non-distended, normal bowel sounds, other (Enteral Fistula-Healing) - Genitourinary Male genitourinary: normal - Integumentary Integumentary: clear, warm, dry - Musculoskeletal Musculoskeletal: 1, strength equal bilaterally - Neurologic Neurologic: moves all extremities - Psychiatric Psychiatric: memory intact, appropriate mood/affect, intact judgment & insight - Labs CBC & Chem 7: 05/25/18 06:48 05/25/18 10:29 Labs: Abnormal lab results 05/25/18 05/25/18 05/25/18 Range/Units 06:48 06:48 10:29 Hgb 10.3 L (11.8-15.2) gm/dl Hct 31.4 L (35.5-45.6) % MCV 81 L (84-94) fl MCH 27 L (28-32) pg RDW 16.9 H (13.2-15.2) % [place] % (Auto) 7.6 H (0.0-7.3) % Potassium 6.5 H* D 5.6 H (3.6-5.0) mmol/L BUN 23 H (9-20) mg/dL POC Glucose (70-105) ALT 57 H (7-56) units/L Albumin 2.5 L (3.9-5) g/dL 05/25/18 Range/Units 11:26 Hgb (11.8-15.2) gm/dl Hct (35.5-45.6) % MCV (84-94) fl MCH (28-32) pg RDW (13.2-15.2) % [place] % (Auto) (0.0-7.3) % Potassium (3.6-5.0) mmol/L BUN (9-20) mg/dL POC Glucose 109 H (70-105) ALT (7-56) units/L Albumin (3.9-5) g/dL
[2018-05-25] MEDS ORDERED: CALCIUM GLUCONATE 2,000 MG in NACL 0.9% 100 ML IV ONE ×2 (15:04→19:00)
[2018-05-25] MEDS ORDERED: TPN ADULT 2,400 ML IV SCH (20:00)
[2018-05-25] MEDS ORDERED: INTRALIPID 20% 250 ML IV SCH (20:00)
[2018-05-25] MEDS: LOVENOX SUB-Q SCH (22:15)
[2018-05-26] MEDS: APRESOLINE IV PRN (02:44)
[2018-05-26 04:42] LABS: Basophils % (Auto) 0.3 % (0.0-1.8); Eosinophils # (Auto) 0.2 K/mm3 (0.0-0.4); Eosinophils % (Auto) 2.3 % (0.0-4.3); Hematocrit 30.6 % (35.5-45.6); Hemoglobin 10.4 gm/dl (11.8-15.2); Lymphocytes # (Auto) 1.8 K/mm3 (1.2-5.4); Lymphocytes % (Auto) 26.4 % (13.4-35.0); Mean Corpuscular HGB Conc 34 % (32-34); Mean Corpuscular Volume 80 fl (84-94); Monocytes # (Auto) 0.6 K/mm3 (0.0-0.8); Platelet Count 370 K/mm3 (140-440); Red Blood Count 3.83 M/mm3 (3.65-5.03); Red Cell Distribution Width 17.4 % (13.2-15.2)
[2018-05-26 05:33] LABS: BUN/Creatinine Ratio 20; Blood Urea Nitrogen 24 mg/dL (9-20); Calcium 9.7 mg/dL (8.4-10.2); Hemolysis Index 10
[2018-05-26] MEDS: AMPICILLIN/NS 2 GM/100 ML 2 GM/100 ML BAG IV SCH ×3 (11:00→18:20)
[2018-05-26] MEDS: PEPCID IV SCH ×2 (11:00→21:38)
[2018-05-26] MEDS: SODIUM CHLORIDE FLUSH SYRINGE 10 ML IV SCH ×2 (11:03→21:38)
--- NOTE | 2018-05-26 11:35 | Progress Note ---
Assessment and Plan Assessment and plan: Sepsis due to line sepsis On iv Antibiotics ID Physician following Blood cultures growing E. faecalis Started on Ampicillin. Started on PPN Contact Isolation for ESBL Continue Ampicillin 2gms IV every 6 hours Anticipate discharge on Ampicillin 10 gms continuous infusion for 2 weeks ending 06-02-18 Order sent to Case management. Talked with HOUSEHOLD APPLIANCE ASSEMBLER [id number] REGARDING Ampicillin infusion---waiting for a pproval from [place] returned case inspector UTI Due to Klebsiella pneumonia ESBL Contact isolation Enterocutanous fistula Surgeon following Toxic metabolic encephalopathy due to sepsis Confused Hypertensive urgency Monitor BP Started Clonidine patch Hydralazine iv prn Enterocutaneous Fistula Nothing by mouth Started on PPN hyperlipidemia Disposition: Anticipate discharge on Ampicillin 10 gms continuous infusion for 2 weeks ending 06-02-18 Order sent to Case management. Talked with HOUSEHOLD APPLIANCE ASSEMBLER [id number]--[place] REGARDING Ampicillin infusion---waiting for approval from [place] returned case inspector History Interval history: Patient seen and examined medical records reviewed No overnight events reported by the nursing Page patient is comfortable confused Vital signs noted Hospitalist Physical - Constitutional Vitals: Temp Pulse Resp BP Pulse Ox 98.5 F 100 H 18 146/73 99 05/26/18 04:04 05/26/18 08:54 05/26/18 04:04 05/26/18 04:04 05/26/18 04:04 General appearance: Present: no acute distress, well-nourished - EENT Eyes: Present: PERRL, EOM intact - Neck Neck: Present: supple, normal ROM - Respiratory Respiratory effort: normal Respiratory: bilateral: diminished, rhonchi, negative: rales, wheezing - Cardiovascular Rhythm: regular Heart Sounds: Present: S1 & S2 - Extremities Extremities: no ischemia, No edema - Abdominal General gastrointestinal: soft, non-tender, non-distended, other (enterocutaneous fistula, dressing in place) - Integumentary Integumentary: Present: clear, warm - Psychiatric Psychiatric: other (confused) - Neurologic Neurologic: moves all extremities Results - Labs CBC & Chem 7: 05/26/18 04:26 05/26/18 04:26 Labs: Laboratory Last Values WBC 7.0 K/mm3 (4.5-11.0) 05/26/18 04:26 RBC 3.83 M/mm3 (3.65-5.03) 05/26/18 04:26 Hgb 10.4 gm/dl (11.8-15.2) L 05/26/18 04:26 Hct 30.6 % (35.5-45.6) L 05/26/18 04:26 MCV 80 fl (84-94) L 05/26/18 04:26 MCH 27 pg (28-32) L 05/26/18 04:26 MCHC 34 % (32-34) 05/26/18 04:26 RDW 17.4 % (13.2-15.2) H 05/26/18 04:26 Plt Count 370 K/mm3 (140-440) 05/26/18 04:26 Lymph % (Auto) 26.4 % (13.4-35.0) 05/26/18 04:26 [place] % (Auto) 8.0 % (0.0-7.3) H 05/26/18 04:26 Eos % (Auto) 2.3 % (0.0-4.3) 05/26/18 04:26 Baso % (Auto) 0.3 % (0.0-1.8) 05/26/18 04:26 Lymph # 1.8 K/mm3 (1.2-5.4) 05/26/18 04:26 [place] # 0.6 K/mm3 (0.0-0.8) 05/26/18 04:26 Eos # 0.2 K/mm3 (0.0-0.4) 05/26/18 04:26 Baso # 0.0 K/mm3 (0.0-0.1) 05/26/18 04:26 Seg Neutrophils % 63.0 % (40.0-70.0) 05/26/18 04:26 Seg Neutrophils # 4.4 K/mm3 (1.8-7.7) 05/26/18 04:26 PT 15.6 Sec. (12.2-14.9) H 05/16/18 11:39 INR 1.17 (0.87-1.13) H 05/16/18 11:39 APTT 31.4 Sec. (24.2-36.6) 05/16/18 11:39 Sodium 140 mmol/L (137-145) 05/26/18 04:26 Potassium 4.5 mmol/L (3.6-5.0) 05/26/18 04:26 Chloride 105.0 mmol/L (98-107) 05/26/18 04:26 Carbon Dioxide 19 mmol/L (22-30) L 05/26/18 04:26 Anion Gap 21 mmol/L 05/26/18 04:26 BUN 24 mg/dL (9-20) H 05/26/18 04:26 Creatinine 1.2 mg/dL (0.8-1.5) 05/26/18 04:26 Estimated GFR > 60 ml/min 05/26/18 04:26 BUN/Creatinine Ratio 20 % 05/26/18 04:26 Glucose 131 mg/dL (75-100) H 05/26/18 04:26 POC Glucose 137 (70-105) H 05/26/18 06:17 Hemoglobin A1c 5.6 % (4-6) 05/17/18 06:00 Lactic Acid 0.90 mmol/L (0.7-2.0) 05/16/18 14:30 Calcium 9.7 mg/dL (8.4-10.2) 05/26/18 04:26 Phosphorus 3.50 mg/dL (2.5-4.5) 05/26/18 04:26 Magnesium 1.90 mg/dL (1.7-2.3) 05/26/18 04:26 Total Bilirubin 0.40 mg/dL (0.1-1.2) 05/25/18 06:48 AST 26 units/L (5-40) 05/25/18 06:48 ALT 57 units/L (7-56) H 05/25/18 06:48 Alkaline Phosphatase 124 units/L (35-129) 05/25/18 06:48 Total Creatine Kinase 43 units/L (55-170) L 05/16/18 11:39 Troponin T < 0.010 ng/mL (0.00-0.029) 05/16/18 11:39 Total Protein 6.7 g/dL (6.3-8.2) D 05/25/18 06:48 Albumin 2.5 g/dL (3.9-5) L 05/25/18 06:48 Albumin/Globulin Ratio 0.6 % 05/25/18 06:48 Triglycerides 79 mg/dL (2-149) 05/20/18 08:06 Urine Color Yellow (Yellow) 05/16/18 12:23 Urine Turbidity Slightly-cloudy (Clear) 05/16/18 12:23 Urine pH 7.0 (5.0-7.0) 05/16/18 12:23 Ur Specific [place] 1.013 (1.003-1.030) 05/16/18 12:23 Urine Protein 30 mg/dl mg/dL (Negative) 05/16/18 12:23 Urine Glucose (UA) Neg mg/dL (Negative) 05/16/18 12:23 Urine Ketones Neg mg/dL (Negative) 05/16/18 12:23 Urine Blood Neg (Negative) 05/16/18 12:23 Urine Nitrite Neg (Negative) 05/16/18 12:23 Urine Bilirubin Neg (Negative) 05/16/18 12:23 Urine Urobilinogen < 2.0 mg/dL (<2.0) 05/16/18 12:23 Ur Leukocyte Esterase Neg (Negative) 05/16/18 12:23 Urine WBC (Auto) 2.0 /HPF (0.0-6.0) 05/16/18 12:23 Urine RBC (Auto) 1.0 /HPF (0.0-6.0) 05/16/18 12:23 U Epithel Cells (Auto) 1.0 /HPF (0-13.0) 05/16/18 12:23 Urine Bacteria (Auto) 4+ /HPF (Negative) 05/16/18 12:23 Urine Mucus Few /HPF 05/16/18 12:23 Vancomycin Trough 37.9 ug/mL (5.0-20.0) H 05/18/18 14:36 Blood Type AB POSITIVE 05/19/18 12:56 Antibody Screen Negative 05/19/18 12:56 Crossmatch See Detail 05/19/18 12:56 Active Medications - Current Medications Current Medications: Generic Name Dose Route Start Last Admin Trade Name Freq PRN Reason Stop Dose Admin Acetaminophen 650 mg 05/17/18 03:18 05/17/18 21:42 Tylenol PO 650 mg Q4H PRN Administration Pain MILD(1-3)/Fever >100.5/CHACON Clonidine HCl 0.2 mg 05/21/18 17:00 05/21/18 19:07 Catapres-Tts Patch TD 0.2 mg Mo JOHN Administration Enoxaparin Sodium 40 mg 05/17/18 22:00 05/25/18 22:15 Lovenox SUB-Q 40 mg QDAY@2200 JOHN Administration Famotidine 20 mg 05/17/18 04:00 05/26/18 11:00 Pepcid IV 20 mg BID JOHN Administration Hydralazine HCl 10 mg 05/21/18 16:41 05/26/18 02:44 Apresoline IV 10 mg Q4HR PRN Administration SBP>160 or DBP>110 Hydromorphone HCl 0.5 mg 05/17/18 03:18 05/24/18 19:16 Dilaudid IV 0.5 mg Q3H PRN Administration Pain , Severe (7-10) Ampicillin Sodium 2 gm in 100 mls @ 100 mls/hr 05/22/18 18:00 05/26/18 11:08 Polycillin/Ns 2 Gm/100 Ml IV Not Given Q6HR [facility] Amino Acids/Electrolytes/Dextrose 2,400 mls @ 100 mls/hr 05/25/18 20:00 05/25/18 22:32 Tpn Adult IV 05/26/18 19:59 100 mls/hr DAILY@1999 [facility] Administration Protocol Ondansetron HCl 4 mg 05/17/18 03:18 Zofran IV Q8H PRN Nausea And Vomiting Sodium Chloride 10 ml 05/17/18 10:00 05/26/18 11:03 Sodium Chloride Flush Syringe 10 Ml IV 10 ml BID JOHN Administration Sodium Chloride 10 ml 05/17/18 03:18 Sodium Chloride Flush Syringe 10 Ml IV PRN PRN LINE FLUSH Nutrition/Malnutrition Assess - Dietary Evaluation Nutrition/Malnutrition Findings: Nutrition Notes Start: 05/17/18 11:28 Freq: Status: Active Protocol: Document 05/26/18 09:28 LP (Rec: 05/26/18 09:31 LP [id number]) Nutrition Notes Initial or Follow up Reassessment Current Diagnosis Diabetes,Hypertension, Hyperlipidemia Other Pertinent Diagnosis Enterocutaneous fistula, Line sepsis, UTI, Toxic metabolic encephalopathy Current Diet TPN at 100 ml/hr Labs/Tests Reviewed Pertinent Medications Reviewed Height 6 ft 4 in Weight 73.4 kg [place] Body Weight (kg) 91.81 BMI 19.7 Subjective/Other Information CPN day 8. Observed TPN infusing at goal rate 100ml/hr . Percent of energy/protein needs met: 81%/100% Burn Absent Trauma Absent #1 Nutrition Diagnosis Inadequate oral intake Diagnosis Progress(for reassessment Continues documentation) Is patient on ventilator? No Is Patient Ambulatory and/or Out of Bed No REE-([facility]-confined to bed) 1902.732 Kcal/Kg value to use for calculation 30 Approximate Energy Requirements Using 2202 kcal/Kg Calculation Used for Recommendations [facility] Additional Notes Protein needs: 110-124g (1.5-1 .7g/kg) Fluid needs: 1ml/kcal Nutrition Intervention Change Diet Order: CPN Nutrition Support: CPN at 100ml/hr: 12.5% dextrose, 12mEq K, 14mmol phos , MVI Kcal 1,460 Protein (gm) 110 Carbohydrates (gm) 300 Fat (gm) 0 Fluid (mL) 2,400 Fiber (gm) 0 Goal #1 Meet nutrition needs as best possible via CPN. Anticipated Discharge Needs: Home CPN Follow-Up By: 05/27/18 Additional Comments Labs in AM: BMP, Mg, Phos
[2018-05-26] MEDS ORDERED: TPN ADULT 2,400 ML IV SCH (20:00)
[2018-05-26] MEDS: LOVENOX SUB-Q SCH (21:38)
[2018-05-27] MEDS: AMPICILLIN/NS 2 GM/100 ML 2 GM/100 ML BAG IV SCH ×5 (00:05→23:14)
--- NOTE | 2018-05-27 08:53 | Progress Note ---
Assessment and Plan Assessment and plan: --UTI: Due to Klebsiella pneumonia ESBL Contact isolation --Sepsis : E faecalis On IV Antibiotics ELISSA neg for endocarditis Continue Ampicillin 2gms IV every 6 hours Anticipate discharge on Ampicillin 10 gms continuous infusion for 2 weeks ending 06-02-18 Talked with LOSS PREVENTION AND SAFETY MANAGER [id number] REGARDING Ampicillin infusion---waiting for approval from [place] case work aide --Enterocutanous fistula: supportive care Surgeon following, cont PPN --Toxic metabolic encephalopathy due to sepsis supportive care --Hypertensive urgency: present on admission moderate control, cont current antihypertensives and PRN medications --Severe malnutrition.hypoalbuminemia: TPN,supportive care ,dietetian following --DVT prophylaxis:Lovenox --Full code Disposition: Anticipate discharge on Ampicillin 10 gms continuous infusion for 2 weeks ending 06-02-18 Order sent to Case management. History Interval history: Patient seen and examined and medical records reviewed No new events reported by the nursing Patient's daughter at the bedside Vital signs noted Restraint for safety Hospitalist Physical - Constitutional Vitals: Temp Pulse Resp BP Pulse Ox 98.6 F 81 20 164/78 100 05/27/18 04:36 05/27/18 04:36 05/27/18 04:36 05/27/18 04:36 05/27/18 04:36 General appearance: Present: no acute distress, well-nourished, cachectic, disheveled - EENT Eyes: Present: PERRL, scleral icterus - Neck Neck: Present: supple, normal ROM - Respiratory Respiratory effort: normal Respiratory: bilateral: diminished, negative: rales, rhonchi, wheezing - Cardiovascular Rhythm: regular Heart Sounds: Present: S1 & S2 - Extremities Extremities: no ischemia, No edema - Abdominal General gastrointestinal: soft, non-tender, non-distended, other (enterocutaneous fistula, dressing in place) - Integumentary Integumentary: Present: clear, warm - Psychiatric Psychiatric: appropriate mood/affect, cooperative - Neurologic Neurologic: CNII-XII intact, moves all extremities Results - Labs CBC & Chem 7: 05/28/18 05:08 05/28/18 05:08 Labs: Laboratory Last Values WBC 7.0 K/mm3 (4.5-11.0) 05/26/18 04:26 RBC 3.83 M/mm3 (3.65-5.03) 05/26/18 04:26 Hgb 10.4 gm/dl (11.8-15.2) L 05/26/18 04:26 Hct 30.6 % (35.5-45.6) L 05/26/18 04:26 MCV 80 fl (84-94) L 05/26/18 04:26 MCH 27 pg (28-32) L 05/26/18 04:26 MCHC 34 % (32-34) 05/26/18 04:26 RDW 17.4 % (13.2-15.2) H 05/26/18 04:26 Plt Count 370 K/mm3 (140-440) 05/26/18 04:26 Lymph % (Auto) 26.4 % (13.4-35.0) 05/26/18 04:26 [place] % (Auto) 8.0 % (0.0-7.3) H 05/26/18 04:26 Eos % (Auto) 2.3 % (0.0-4.3) 05/26/18 04:26 Baso % (Auto) 0.3 % (0.0-1.8) 05/26/18 04:26 Lymph # 1.8 K/mm3 (1.2-5.4) 05/26/18 04:26 [place] # 0.6 K/mm3 (0.0-0.8) 05/26/18 04:26 Eos # 0.2 K/mm3 (0.0-0.4) 05/26/18 04:26 Baso # 0.0 K/mm3 (0.0-0.1) 05/26/18 04:26 Seg Neutrophils % 63.0 % (40.0-70.0) 05/26/18 04:26 Seg Neutrophils # 4.4 K/mm3 (1.8-7.7) 05/26/18 04:26 PT 15.6 Sec. (12.2-14.9) H 05/16/18 11:39 INR 1.17 (0.87-1.13) H 05/16/18 11:39 APTT 31.4 Sec. (24.2-36.6) 05/16/18 11:39 Sodium 140 mmol/L (137-145) 05/26/18 04:26 Potassium 4.5 mmol/L (3.6-5.0) 05/26/18 04:26 Chloride 105.0 mmol/L (98-107) 05/26/18 04:26 Carbon Dioxide 19 mmol/L (22-30) L 05/26/18 04:26 Anion Gap 21 mmol/L 05/26/18 04:26 BUN 24 mg/dL (9-20) H 05/26/18 04:26 Creatinine 1.2 mg/dL (0.8-1.5) 05/26/18 04:26 Estimated GFR > 60 ml/min 05/26/18 04:26 BUN/Creatinine Ratio 20 % 05/26/18 04:26 Glucose 131 mg/dL (75-100) H 05/26/18 04:26 POC Glucose 142 (70-105) H 05/27/18 05:43 Hemoglobin A1c 5.6 % (4-6) 05/17/18 06:00 Lactic Acid 0.90 mmol/L (0.7-2.0) 05/16/18 14:30 Calcium 9.7 mg/dL (8.4-10.2) 05/26/18 04:26 Phosphorus 3.50 mg/dL (2.5-4.5) 05/26/18 04:26 Magnesium 1.90 mg/dL (1.7-2.3) 05/26/18 04:26 Total Bilirubin 0.40 mg/dL (0.1-1.2) 05/25/18 06:48 AST 26 units/L (5-40) 05/25/18 06:48 ALT 57 units/L (7-56) H 05/25/18 06:48 Alkaline Phosphatase 124 units/L (35-129) 05/25/18 06:48 Total Creatine Kinase 43 units/L (55-170) L 05/16/18 11:39 Troponin T < 0.010 ng/mL (0.00-0.029) 05/16/18 11:39 Total Protein 6.7 g/dL (6.3-8.2) D 05/25/18 06:48 Albumin 2.5 g/dL (3.9-5) L 05/25/18 06:48 Albumin/Globulin Ratio 0.6 % 05/25/18 06:48 Triglycerides 79 mg/dL (2-149) 05/20/18 08:06 Urine Color Yellow (Yellow) 05/16/18 12:23 Urine Turbidity Slightly-cloudy (Clear) 05/16/18 12:23 Urine pH 7.0 (5.0-7.0) 05/16/18 12:23 Ur Specific [place] 1.013 (1.003-1.030) 05/16/18 12:23 Urine Protein 30 mg/dl mg/dL (Negative) 05/16/18 12:23 Urine Glucose (UA) Neg mg/dL (Negative) 05/16/18 12:23 Urine Ketones Neg mg/dL (Negative) 05/16/18 12:23 Urine Blood Neg (Negative) 05/16/18 12:23 Urine Nitrite Neg (Negative) 05/16/18 12:23 Urine Bilirubin Neg (Negative) 05/16/18 12:23 Urine Urobilinogen < 2.0 mg/dL (<2.0) 05/16/18 12:23 Ur Leukocyte Esterase Neg (Negative) 05/16/18 12:23 Urine WBC (Auto) 2.0 /HPF (0.0-6.0) 05/16/18 12:23 Urine RBC (Auto) 1.0 /HPF (0.0-6.0) 05/16/18 12:23 U Epithel Cells (Auto) 1.0 /HPF (0-13.0) 05/16/18 12:23 Urine Bacteria (Auto) 4+ /HPF (Negative) 05/16/18 12:23 Urine Mucus Few /HPF 05/16/18 12:23 Vancomycin Trough 37.9 ug/mL (5.0-20.0) H 05/18/18 14:36 Blood Type AB POSITIVE 05/19/18 12:56 Antibody Screen Negative 05/19/18 12:56 Crossmatch See Detail 05/19/18 12:56 Active Medications - Current Medications Current Medications: Generic Name Dose Route Start Last Admin Trade Name Freq PRN Reason Stop Dose Admin Acetaminophen 650 mg 05/17/18 03:18 05/17/18 21:42 Tylenol PO 650 mg Q4H PRN Administration Pain MILD(1-3)/Fever >100.5/CHACON Clonidine HCl 0.2 mg 05/21/18 17:00 05/21/18 19:07 Catapres-Tts Patch TD 0.2 mg Mo JOHN Administration Enoxaparin Sodium 40 mg 05/17/18 22:00 05/26/18 21:38 Lovenox SUB-Q 40 mg QDAY@2200 JOHN Administration Famotidine 20 mg 05/17/18 04:00 05/26/18 21:38 Pepcid IV 20 mg BID JOHN Administration Hydralazine HCl 10 mg 05/21/18 16:41 05/26/18 02:44 Apresoline IV 10 mg Q4HR PRN Administration SBP>160 or DBP>110 Hydromorphone HCl 0.5 mg 05/17/18 03:18 05/24/18 19:16 Dilaudid IV 0.5 mg Q3H PRN Administration Pain , Severe (7-10) Ampicillin Sodium 2 gm in 100 mls @ 100 mls/hr 05/22/18 18:00 05/27/18 05:24 Polycillin/Ns 2 Gm/100 Ml IV 100 mls/hr Q6HR JOHN Administration Amino Acids/Electrolytes/Dextrose 2,400 mls @ 100 mls/hr 05/26/18 20:00 05/26/18 20:45 Tpn Adult IV 05/27/18 19:59 100 mls/hr DAILY@2000 [facility] Administration Protocol Ondansetron HCl 4 mg 05/17/18 03:18 Zofran IV Q8H PRN Nausea And Vomiting Sodium Chloride 10 ml 05/17/18 10:00 05/26/18 21:38 Sodium Chloride Flush Syringe 10 Ml IV 10 ml BID JOHN Administration Sodium Chloride 10 ml 05/17/18 03:18 Sodium Chloride Flush Syringe 10 Ml IV PRN PRN LINE FLUSH Nutrition/Malnutrition Assess - Dietary Evaluation Nutrition/Malnutrition Findings: Nutrition Notes Start: 05/17/18 11:28 Freq: Status: Active Protocol: Document 05/26/18 09:28 LP (Rec: 05/26/18 09:31 LP [id number]) Nutrition Notes Initial or Follow up Reassessment Current Diagnosis Diabetes,Hypertension, Hyperlipidemia Other Pertinent Diagnosis Enterocutaneous fistula, Line sepsis, UTI, Toxic metabolic encephalopathy Current Diet TPN at 100 ml/hr Labs/Tests Reviewed Pertinent Medications Reviewed Height 6 ft 4 in Weight 73.4 kg [place] Body Weight (kg) 91.81 BMI 19.7 Subjective/Other Information CPN day 8. Observed TPN infusing at goal rate 100ml/hr . Percent of energy/protein needs met: 81%/100% Burn Absent Trauma Absent #1 Nutrition Diagnosis Inadequate oral intake Diagnosis Progress(for reassessment Continues documentation) Is patient on ventilator? No Is Patient Ambulatory and/or Out of Bed No REE-([facility]-confined to bed) 1902.732 Kcal/Kg value to use for calculation 30 Approximate Energy Requirements Using 2202 kcal/Kg Calculation Used for Recommendations [facility] Additional Notes Protein needs: 110-124g (1.5-1 .7g/kg) Fluid needs: 1ml/kcal Nutrition Intervention Change Diet Order: CPN Nutrition Support: CPN at 100ml/hr: 12.5% dextrose, 12mEq K, 14mmol phos , MVI Kcal 1,460 Protein (gm) 110 Carbohydrates (gm) 300 Fat (gm) 0 Fluid (mL) 2,400 Fiber (gm) 0 Goal #1 Meet nutrition needs as best possible via CPN. Anticipated Discharge Needs: Home CPN Follow-Up By: 05/27/18 Additional Comments Labs in AM: BMP, Mg, Phos
[2018-05-27] MEDS: PEPCID IV SCH ×2 (10:05→21:25)
[2018-05-27] MEDS: SODIUM CHLORIDE FLUSH SYRINGE 10 ML IV SCH ×2 (10:06→21:25)
[2018-05-27 10:49] LABS: BUN/Creatinine Ratio 22; Blood Urea Nitrogen 24 mg/dL (9-20); Calcium 8.5 mg/dL (8.4-10.2); Hemolysis Index 4
[2018-05-27] MEDS ORDERED: TPN ADULT 2,400 ML IV SCH (20:00)
[2018-05-27] MEDS: LOVENOX SUB-Q SCH (21:24)
[2018-05-28 05:34] LABS: Basophils % (Auto) 0.3 % (0.0-1.8); Eosinophils # (Auto) 0.4 K/mm3 (0.0-0.4); Eosinophils % (Auto) 4.2 % (0.0-4.3); Hematocrit 29.5 % (35.5-45.6); Hemoglobin 9.8 gm/dl (11.8-15.2); Lymphocytes # (Auto) 2.1 K/mm3 (1.2-5.4); Lymphocytes % (Auto) 24.3 % (13.4-35.0); Mean Corpuscular HGB Conc 33 % (32-34); Mean Corpuscular Volume 81 fl (84-94); Monocytes # (Auto) 0.9 K/mm3 (0.0-0.8); Monocytes % (Auto) 10.3 % (0.0-7.3); Red Blood Count 3.66 M/mm3 (3.65-5.03); Red Cell Distribution Width 18.1 % (13.2-15.2)
[2018-05-28 05:50] LABS: BUN/Creatinine Ratio 21; Blood Urea Nitrogen 23 mg/dL (9-20); Calcium 8.4 mg/dL (8.4-10.2); Hemolysis Index 41
[2018-05-28] MEDS: AMPICILLIN/NS 2 GM/100 ML 2 GM/100 ML BAG IV SCH ×3 (06:14→17:32)
[2018-05-28 07:14] LABS: Platelet Count 325 K/mm3 (140-440)
--- NOTE | 2018-05-28 08:55 | Progress Note ---
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 He is on home TPN through a PICC line since March 2018. Admitted with: #1 Sepsis, Resolved, no leukocytosis with gram-positive bacteremia: Source certainly could be the PICC line. Currently being treated with Vancomycin. #2. Enterococcus Bacteremia: 4 out of 4 bottles. TTE shows no valvular vegetation. #2 Positive urine culture: Patient asymptomatic. UA without significant pyuria. Likely asymptomatic bacteriuria. Urine Culture ESBL Klebsiella #3 EC fistula and malnutrition: on home TPN. EC fistula output is minimal at this time. No abdominal pain. #4. Acute Encephalopathy: continuing, related to bacteremia- improving Recs: Contact Isolation for ESBL Continue Ampicillin 2gms IV every 6 hours Anticipate discharge on Ampicillin 10 gms continuous infusion for 2 weeks ending 06-02-18 Order sent to Case management. Yuni Solomon NP [facility] M: [phone] O:[phone] Subjective Date of service: 05/28/18 Principal diagnosis: Line sepsis Interval history: Patient seen and examined. Encephalopathy continuing. patient observed with hand restraints. No acute distress observed. Objective - Exam Narrative Exam: Constitutional: Alert. Awake. confused. No acute distress. Cachexia Head, Ears, Nose: Normocephalic, atraumatic. External ears, nose normal Eyes: Conjunctivae/corneas clear. No icterus. No ptosis. Neck: Supple, no meningeal signs Oral: dentition fair, no thrush. Cardiovascular: S1, S2 normal. Respiratory: Good air entry, clear to auscultation bilaterally GI: Soft, non-tender; bowel sounds normal. EC fistula with scant greenish drainage. No peritoneal signs Musculoskeletal: No pedal edema, no cyanosis. Skin: No rash or abscess Hem/Lymphatic: No palpable cervical or supraclavicular nodes. No lymphangitis Psych: Mood ok. Affect flat Neurological: Awake, alert, confused Lines: R tunneled PICC - Constitutional Vitals: Vital Signs Temp Pulse Resp BP Pulse Ox 97.8 F 82 22 138/61 100 05/28/18 07:42 05/28/18 01:09 05/28/18 07:42 05/28/18 07:42 05/28/18 01:01 Temperature -Last 24 Hours Temperature 97.8 F Temperature 98.6 F Temperature 97.8 F Temperature 98.0 F Temperature 98.6 F Temperature 97.6 F - Labs CBC & Chem 7: 05/28/18 05:08 05/28/18 05:08 Labs: Abnormal lab results 05/27/18 05/27/18 05/27/18 Range/Units 11:38 19:16 22:15 Hgb (11.8-15.2) gm/dl Hct (35.5-45.6) % MCV (84-94) fl MCH (28-32) pg RDW (13.2-15.2) % [place] % (Auto) (0.0-7.3) % [place] # (0.0-0.8) K/mm3 Sodium (137-145) mmol/L Carbon Dioxide (22-30) mmol/L BUN (9-20) mg/dL Glucose (75-100) mg/dL POC Glucose 153 H 108 H 179 H (70-105) 05/27/18 05/28/18 05/28/18 Range/Units Unknown 05:08 05:08 Hgb 9.8 L (11.8-15.2) gm/dl Hct 29.5 L (35.5-45.6) % MCV 81 L (84-94) fl MCH 27 L (28-32) pg RDW 18.1 H (13.2-15.2) % [place] % (Auto) 10.3 H (0.0-7.3) % [place] # 0.9 H (0.0-0.8) K/mm3 Sodium 135 L (137-145) mmol/L Carbon Dioxide 21 L (22-30) mmol/L BUN 24 H 23 H (9-20) mg/dL Glucose 108 H 142 H (75-100) mg/dL POC Glucose (70-105) 05/28/18 Range/Units 06:50 Hgb (11.8-15.2) gm/dl Hct (35.5-45.6) % MCV (84-94) fl MCH (28-32) pg RDW (13.2-15.2) % [place] % (Auto) (0.0-7.3) % [place] # (0.0-0.8) K/mm3 Sodium (137-145) mmol/L Carbon Dioxide (22-30) mmol/L BUN (9-20) mg/dL Glucose (75-100) mg/dL POC Glucose 138 H (70-105)
[2018-05-28] MEDS: PEPCID IV SCH ×2 (09:19→22:04)
[2018-05-28] MEDS: SODIUM CHLORIDE FLUSH SYRINGE 10 ML IV SCH ×2 (09:19→22:05)
--- NOTE | 2018-05-28 09:51 | Progress Note ---
Assessment and Plan Assessment and plan: Sepsis : E faecalis On IV Antibiotics ELISSA neg for endocarditis Continue Ampicillin 2gms IV every 6 hours Anticipate discharge on Ampicillin 10 gms continuous infusion for 2 weeks ending 06-02-18 Talked with [employer] [id number] REGARDING Ampicillin infusion---waiting for approval from [place] case fitter --UTI: Due to Klebsiella pneumonia ESBL Contact isolation --Enterocutanous fistula: supportive care Surgeon following, cont PPN --Toxic metabolic encephalopathy due to sepsis supportive care --Hypertensive urgency: present on admission moderate control, cont current antihypertensives and PRN medications --Severe malnutrition.hypoalbuminemia: TPN,supportive care ,dietetian following --DVT prophylaxis:Lovenox --Full code Patient stable for discharge Disposition: Anticipate discharge on Ampicillin 10 gms continuous infusion for 2 weeks ending 06-02-18 Order sent to Case management. History Interval history: Patient seen and examined, Medical records reviewed No new events reported by the nursing even staff Patient is minimally communicative Not no acute distress Vital signs noted Hospitalist Physical - Constitutional Vitals: Temp Pulse Resp BP Pulse Ox 97.8 F 82 22 138/61 100 05/28/18 07:42 05/28/18 01:09 05/28/18 07:42 05/28/18 07:42 05/28/18 01:01 General appearance: Present: no acute distress, well-nourished, cachectic, disheveled - EENT Eyes: Present: PERRL, EOM intact - Neck Neck: Present: supple, normal ROM - Respiratory Respiratory effort: normal Respiratory: bilateral: diminished, negative: rales, rhonchi, wheezing - Cardiovascular Rhythm: regular Heart Sounds: Present: S1 & S2 - Extremities Extremities: no ischemia, abnormal (chronic changes) - Abdominal General gastrointestinal: soft, non-tender, non-distended, normal bowel sounds, other (EC fistula/dressing in place) - Integumentary Integumentary: Present: clear, warm - Psychiatric Psychiatric: appropriate mood/affect - Neurologic Neurologic: moves all extremities Results - Labs CBC & Chem 7: 05/28/18 05:08 05/28/18 05:08 Labs: Laboratory Last Values WBC 8.7 K/mm3 (4.5-11.0) 05/28/18 05:08 RBC 3.66 M/mm3 (3.65-5.03) 05/28/18 05:08 Hgb 9.8 gm/dl (11.8-15.2) L 05/28/18 05:08 Hct 29.5 % (35.5-45.6) L 05/28/18 05:08 MCV 81 fl (84-94) L 05/28/18 05:08 MCH 27 pg (28-32) L 05/28/18 05:08 MCHC 33 % (32-34) 05/28/18 05:08 RDW 18.1 % (13.2-15.2) H 05/28/18 05:08 Plt Count 325 K/mm3 (140-440) 05/28/18 05:08 Lymph % (Auto) 24.3 % (13.4-35.0) 05/28/18 05:08 [place] % (Auto) 10.3 % (0.0-7.3) H 05/28/18 05:08 Eos % (Auto) 4.2 % (0.0-4.3) 05/28/18 05:08 Baso % (Auto) 0.3 % (0.0-1.8) 05/28/18 05:08 Lymph # 2.1 K/mm3 (1.2-5.4) 05/28/18 05:08 [place] # 0.9 K/mm3 (0.0-0.8) H 05/28/18 05:08 Eos # 0.4 K/mm3 (0.0-0.4) 05/28/18 05:08 Baso # 0.0 K/mm3 (0.0-0.1) 05/28/18 05:08 Seg Neutrophils % 60.9 % (40.0-70.0) 05/28/18 05:08 Seg Neutrophils # 5.3 K/mm3 (1.8-7.7) 05/28/18 05:08 PT 15.6 Sec. (12.2-14.9) H 05/16/18 11:39 INR 1.17 (0.87-1.13) H 05/16/18 11:39 APTT 31.4 Sec. (24.2-36.6) 05/16/18 11:39 Sodium 135 mmol/L (137-145) L 05/28/18 05:08 Potassium 3.9 mmol/L (3.6-5.0) 05/28/18 05:08 Chloride 100.6 mmol/L (98-107) 05/28/18 05:08 Carbon Dioxide 21 mmol/L (22-30) L 05/28/18 05:08 Anion Gap 17 mmol/L 05/28/18 05:08 BUN 23 mg/dL (9-20) H 05/28/18 05:08 Creatinine 1.1 mg/dL (0.8-1.5) 05/28/18 05:08 Estimated GFR > 60 ml/min 05/28/18 05:08 BUN/Creatinine Ratio 21 % 05/28/18 05:08 Glucose 142 mg/dL (75-100) H 05/28/18 05:08 POC Glucose 138 (70-105) H 05/28/18 06:50 Hemoglobin A1c 5.6 % (4-6) 05/17/18 06:00 Lactic Acid 0.90 mmol/L (0.7-2.0) 05/16/18 14:30 Calcium 8.4 mg/dL (8.4-10.2) 05/28/18 05:08 Phosphorus 4.00 mg/dL (2.5-4.5) 05/28/18 05:08 Magnesium 1.90 mg/dL (1.7-2.3) 05/28/18 05:08 Total Bilirubin 0.40 mg/dL (0.1-1.2) 05/25/18 06:48 AST 26 units/L (5-40) 05/25/18 06:48 ALT 57 units/L (7-56) H 05/25/18 06:48 Alkaline Phosphatase 124 units/L (35-129) 05/25/18 06:48 Total Creatine Kinase 43 units/L (55-170) L 05/16/18 11:39 Troponin T < 0.010 ng/mL (0.00-0.029) 05/16/18 11:39 Total Protein 6.7 g/dL (6.3-8.2) D 05/25/18 06:48 Albumin 2.5 g/dL (3.9-5) L 05/25/18 06:48 Albumin/Globulin Ratio 0.6 % 05/25/18 06:48 Triglycerides 79 mg/dL (2-149) 05/20/18 08:06 Urine Color Yellow (Yellow) 05/16/18 12:23 Urine Turbidity Slightly-cloudy (Clear) 05/16/18 12:23 Urine pH 7.0 (5.0-7.0) 05/16/18 12:23 Ur Specific [place] 1.013 (1.003-1.030) 05/16/18 12:23 Urine Protein 30 mg/dl mg/dL (Negative) 05/16/18 12:23 Urine Glucose (UA) Neg mg/dL (Negative) 05/16/18 12:23 Urine Ketones Neg mg/dL (Negative) 05/16/18 12:23 Urine Blood Neg (Negative) 05/16/18 12:23 Urine Nitrite Neg (Negative) 05/16/18 12:23 Urine Bilirubin Neg (Negative) 05/16/18 12:23 Urine Urobilinogen < 2.0 mg/dL (<2.0) 05/16/18 12:23 Ur Leukocyte Esterase Neg (Negative) 05/16/18 12:23 Urine WBC (Auto) 2.0 /HPF (0.0-6.0) 05/16/18 12:23 Urine RBC (Auto) 1.0 /HPF (0.0-6.0) 05/16/18 12:23 U Epithel Cells (Auto) 1.0 /HPF (0-13.0) 05/16/18 12:23 Urine Bacteria (Auto) 4+ /HPF (Negative) 05/16/18 12:23 Urine Mucus Few /HPF 05/16/18 12:23 Vancomycin Trough 37.9 ug/mL (5.0-20.0) H 05/18/18 14:36 Blood Type AB POSITIVE 05/19/18 12:56 Antibody Screen Negative 05/19/18 12:56 Crossmatch See Detail 05/19/18 12:56 Active Medications - Current Medications Current Medications: Generic Name Dose Route Start Last Admin Trade Name Freq PRN Reason Stop Dose Admin Acetaminophen 650 mg 05/17/18 03:18 05/17/18 21:42 Tylenol PO 650 mg Q4H PRN Administration Pain MILD(1-3)/Fever >100.5/CHACON Clonidine HCl 0.2 mg 05/21/18 17:00 05/21/18 19:07 Catapres-Tts Patch TD 0.2 mg Mo JOHN Administration Enoxaparin Sodium 40 mg 05/17/18 22:00 05/27/18 21:24 Lovenox SUB-Q 40 mg QDAY@2200 JOHN Administration Famotidine 20 mg 05/17/18 04:00 05/28/18 09:19 Pepcid IV 20 mg BID JOHN Administration Hydralazine HCl 10 mg 05/21/18 16:41 05/26/18 02:44 Apresoline IV 10 mg Q4HR PRN Administration SBP>160 or DBP>110 Hydromorphone HCl 0.5 mg 05/17/18 03:18 05/24/18 19:16 Dilaudid IV 0.5 mg Q3H PRN Administration Pain , Severe (7-10) Ampicillin Sodium 2 gm in 100 mls @ 100 mls/hr 05/22/18 18:00 05/28/18 06:14 Polycillin/Ns 2 Gm/100 Ml IV 100 mls/hr Q6HR JOHN Administration Amino Acids/Electrolytes/Dextrose 2,400 mls @ 100 mls/hr 05/27/18 20:00 05/27/18 21:00 Tpn Adult IV 05/28/18 19:59 100 mls/hr DAILY@2000 JOHN Administration Protocol Ondansetron HCl 4 mg 05/17/18 03:18 Zofran IV Q8H PRN Nausea And Vomiting Sodium Chloride 10 ml 05/17/18 10:00 05/28/18 09:19 Sodium Chloride Flush Syringe 10 Ml IV 10 ml BID JOHN Administration Sodium Chloride 10 ml 05/17/18 03:18 Sodium Chloride Flush Syringe 10 Ml IV PRN PRN LINE FLUSH Nutrition/Malnutrition Assess - Dietary Evaluation Nutrition/Malnutrition Findings: Nutrition Notes Start: 05/17/18 11:28 Freq: Status: Active Protocol: Document 05/27/18 11:22 LP (Rec: 05/27/18 11:24 LP [id number]) Nutrition Notes Initial or Follow up Reassessment Current Diagnosis Diabetes,Hypertension, Hyperlipidemia Other Pertinent Diagnosis Enterocutaneous fistula, Line sepsis, UTI, Toxic metabolic encephalopathy Current Diet TPN at 100 ml/hr Labs/Tests Reviewed Pertinent Medications Reviewed Height 6 ft 4 in Weight 73.4 kg [place] Body Weight (kg) 91.81 BMI 19.7 Subjective/Other Information CPN day 9. Observed TPN infusing at goal rate 100ml/hr . Percent of energy/protein needs met: 66%/100% Burn Absent Trauma Absent #1 Nutrition Diagnosis Inadequate oral intake Diagnosis Progress(for reassessment Continues documentation) Is patient on ventilator? No Is Patient Ambulatory and/or Out of Bed No REE-([facility]-confined to bed) 1902.732 Kcal/Kg value to use for calculation 30 Approximate Energy Requirements Using 2202 kcal/Kg Calculation Used for Recommendations [facility] Additional Notes Protein needs: 110-124g (1.5-1 .7g/kg) Fluid needs: 1ml/kcal Nutrition Intervention Change Diet Order: CPN Nutrition Support: CPN at 100ml/hr: 14.6% dextrose, 10mmol phos, MVI Kcal 1,630 Protein (gm) 110 Carbohydrates (gm) 350 Fat (gm) 0 Fluid (mL) 2,400 Fiber (gm) 0 Goal #1 Meet nutrition needs as best possible via CPN. Anticipated Discharge Needs: Home CPN Follow-Up By: 05/28/18 Additional Comments Labs in AM: BMP, Mg, Phos
[2018-05-28] MEDS: CATAPRES-TTS PATCH TD SCH (17:32)
[2018-05-28] MEDS ORDERED: INTRALIPID 20% 250 ML IV SCH (20:00)
[2018-05-28] MEDS ORDERED: TPN ADULT 1,999.92 ML IV SCH (20:00)
[2018-05-28] MEDS: LOVENOX SUB-Q SCH (22:04)
[2018-05-29] MEDS: AMPICILLIN/NS 2 GM/100 ML 2 GM/100 ML BAG IV SCH ×4 (00:03→18:02)
[2018-05-29 06:07] LABS: BUN/Creatinine Ratio 23; Blood Urea Nitrogen 28 mg/dL (9-20); Calcium 8.2 mg/dL (8.4-10.2); Hemolysis Index 6
--- NOTE | 2018-05-29 09:11 | Progress Note ---
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 He is on home TPN through a PICC line since March 2018. Admitted with: #1 Sepsis, Resolved, no leukocytosis with gram-positive bacteremia: Source certainly could be the PICC line. Currently being treated with Vancomycin. #2. Enterococcus Bacteremia: 4 out of 4 bottles. TTE shows no valvular vegetation. #2 Positive urine culture: Patient asymptomatic. UA without significant pyuria. Likely asymptomatic bacteriuria. Urine Culture ESBL Klebsiella #3 EC fistula and malnutrition: on home TPN. EC fistula output is minimal at this time. No abdominal pain. #4. Acute Encephalopathy: continuing, related to bacteremia- improving Recs: Contact Isolation for ESBL Continue Ampicillin 2gms IV every 6 hours Anticipate discharge on Ampicillin 10 gms continuous infusion for 2 weeks ending 06-02-18 Awaiting approval of antibiotics from insurance company [employer] M: [phone] O:[phone] Subjective Date of service: 05/29/18 Principal diagnosis: Line sepsis Interval history: Patient seen and examined. Encephalopathy continuing, calm, at bedside. No acute distress observed. Objective - Exam Narrative Exam: Constitutional: Alert. Awake. confused. No acute distress. Cachexia Head, Ears, Nose: Normocephalic, atraumatic. External ears, nose normal Eyes: Conjunctivae/corneas clear. No icterus. No ptosis. Neck: Supple, no meningeal signs Oral: dentition fair, no thrush. Cardiovascular: S1, S2 normal. Respiratory: Good air entry, clear to auscultation bilaterally GI: Soft, non-tender; bowel sounds normal. EC fistula with scant greenish drainage. No peritoneal signs Musculoskeletal: No pedal edema, no cyanosis. Skin: No rash or abscess Hem/Lymphatic: No palpable cervical or supraclavicular nodes. No lymphangitis Psych: Mood ok. Affect flat Neurological: Awake, alert, confused Lines: R tunneled PICC - Constitutional Vitals: Vital Signs Temp Pulse Resp BP Pulse Ox 97.9 F 79 18 124/58 100 05/29/18 07:54 05/29/18 07:54 05/29/18 07:54 05/29/18 07:54 05/29/18 07:54 Temperature -Last 24 Hours Temperature 97.9 F Temperature 98.2 F Temperature 97.5 F Temperature 97.2 F - Labs CBC & Chem 7: 05/28/18 05:08 05/29/18 04:53 Labs: Abnormal lab results 05/28/18 05/28/18 05/29/18 Range/Units 11:34 18:26 04:53 Potassium 3.0 L D (3.6-5.0) mmol/L BUN 28 H (9-20) mg/dL Glucose 135 H (75-100) mg/dL POC Glucose 123 H 167 H (70-105) Calcium 8.2 L (8.4-10.2) mg/dL
--- NOTE | 2018-05-29 09:31 | Progress Note ---
Assessment and Plan Assessment and plan: Sepsis : E faecalis On IV Antibiotics ELISSA neg for endocarditis Continue Ampicillin 2gms IV every 6 hours Anticipate discharge on Ampicillin 10 gms continuous infusion for 2 weeks ending 06-02-18 Talked with [employer] [id number] REGARDING Ampicillin infusion---waiting for approval from [place] manager case management --UTI: Due to Klebsiella pneumonia ESBL Contact isolation --Enterocutanous fistula: supportive care Surgeon following, cont PPN --Toxic metabolic encephalopathy due to sepsis supportive care --Hypertensive urgency: present on admission moderate control, cont current antihypertensives and PRN medications --Severe malnutrition.hypoalbuminemia: TPN,supportive care ,dietetian following --DVT prophylaxis:Lovenox --Full code Patient stable for discharge Disposition: Anticipate discharge on Ampicillin 10 gms continuous infusion for 2 weeks ending 06-02-18 Order sent to Case management. History Interval history: Patient feels better,no new complaints vital signs stable Hospitalist Physical - Constitutional Vitals: Temp Pulse Resp BP Pulse Ox 97.9 F 79 18 124/58 100 05/29/18 07:54 05/29/18 07:54 05/29/18 07:54 05/29/18 07:54 05/29/18 07:54 General appearance: Present: no acute distress, well-nourished, cachectic, disheveled - EENT Eyes: Present: PERRL, EOM intact - Neck Neck: Present: supple, normal ROM - Respiratory Respiratory effort: normal Respiratory: negative: rales, rhonchi, wheezing - Cardiovascular Rhythm: regular Heart Sounds: Present: S1 & S2 - Extremities Extremities: no ischemia, pulses intact, pulses symmetrical - Abdominal General gastrointestinal: soft, non-tender, non-distended, normal bowel sounds - Integumentary Integumentary: Present: clear, warm - Psychiatric Psychiatric: appropriate mood/affect, cooperative - Neurologic Neurologic: CNII-XII intact, moves all extremities Results - Labs CBC & Chem 7: 05/28/18 05:08 05/31/18 06:00 Labs: Laboratory Last Values WBC 8.7 K/mm3 (4.5-11.0) 05/28/18 05:08 RBC 3.66 M/mm3 (3.65-5.03) 05/28/18 05:08 Hgb 9.8 gm/dl (11.8-15.2) L 05/28/18 05:08 Hct 29.5 % (35.5-45.6) L 05/28/18 05:08 MCV 81 fl (84-94) L 05/28/18 05:08 MCH 27 pg (28-32) L 05/28/18 05:08 MCHC 33 % (32-34) 05/28/18 05:08 RDW 18.1 % (13.2-15.2) H 05/28/18 05:08 Plt Count 325 K/mm3 (140-440) 05/28/18 05:08 Lymph % (Auto) 24.3 % (13.4-35.0) 05/28/18 05:08 [place] % (Auto) 10.3 % (0.0-7.3) H 05/28/18 05:08 Eos % (Auto) 4.2 % (0.0-4.3) 05/28/18 05:08 Baso % (Auto) 0.3 % (0.0-1.8) 05/28/18 05:08 Lymph # 2.1 K/mm3 (1.2-5.4) 05/28/18 05:08 [place] # 0.9 K/mm3 (0.0-0.8) H 05/28/18 05:08 Eos # 0.4 K/mm3 (0.0-0.4) 05/28/18 05:08 Baso # 0.0 K/mm3 (0.0-0.1) 05/28/18 05:08 Seg Neutrophils % 60.9 % (40.0-70.0) 05/28/18 05:08 Seg Neutrophils # 5.3 K/mm3 (1.8-7.7) 05/28/18 05:08 PT 15.6 Sec. (12.2-14.9) H 05/16/18 11:39 INR 1.17 (0.87-1.13) H 05/16/18 11:39 APTT 31.4 Sec. (24.2-36.6) 05/16/18 11:39 Sodium 137 mmol/L (137-145) 05/29/18 04:53 Potassium 3.0 mmol/L (3.6-5.0) L D 05/29/18 04:53 Chloride 102.4 mmol/L (98-107) 05/29/18 04:53 Carbon Dioxide 25 mmol/L (22-30) 05/29/18 04:53 Anion Gap 13 mmol/L 05/29/18 04:53 BUN 28 mg/dL (9-20) H 05/29/18 04:53 Creatinine 1.2 mg/dL (0.8-1.5) 05/29/18 04:53 Estimated GFR > 60 ml/min 05/29/18 04:53 BUN/Creatinine Ratio 23 % 05/29/18 04:53 Glucose 135 mg/dL (75-100) H 05/29/18 04:53 POC Glucose 167 (70-105) H 05/28/18 18:26 Hemoglobin A1c 5.6 % (4-6) 05/17/18 06:00 Lactic Acid 0.90 mmol/L (0.7-2.0) 05/16/18 14:30 Calcium 8.2 mg/dL (8.4-10.2) L 05/29/18 04:53 Phosphorus 3.50 mg/dL (2.5-4.5) 05/29/18 04:53 Magnesium 1.70 mg/dL (1.7-2.3) 05/29/18 04:53 Total Bilirubin 0.40 mg/dL (0.1-1.2) 05/25/18 06:48 AST 26 units/L (5-40) 05/25/18 06:48 ALT 57 units/L (7-56) H 05/25/18 06:48 Alkaline Phosphatase 124 units/L (35-129) 05/25/18 06:48 Total Creatine Kinase 43 units/L (55-170) L 05/16/18 11:39 Troponin T < 0.010 ng/mL (0.00-0.029) 05/16/18 11:39 Total Protein 6.7 g/dL (6.3-8.2) D 05/25/18 06:48 Albumin 2.5 g/dL (3.9-5) L 05/25/18 06:48 Albumin/Globulin Ratio 0.6 % 05/25/18 06:48 Triglycerides 79 mg/dL (2-149) 05/20/18 08:06 Urine Color Yellow (Yellow) 05/16/18 12:23 Urine Turbidity Slightly-cloudy (Clear) 05/16/18 12:23 Urine pH 7.0 (5.0-7.0) 05/16/18 12:23 Ur Specific [place] 1.013 (1.003-1.030) 05/16/18 12:23 Urine Protein 30 mg/dl mg/dL (Negative) 05/16/18 12:23 Urine Glucose (UA) Neg mg/dL (Negative) 05/16/18 12:23 Urine Ketones Neg mg/dL (Negative) 05/16/18 12:23 Urine Blood Neg (Negative) 05/16/18 12:23 Urine Nitrite Neg (Negative) 05/16/18 12:23 Urine Bilirubin Neg (Negative) 05/16/18 12:23 Urine Urobilinogen < 2.0 mg/dL (<2.0) 05/16/18 12:23 Ur Leukocyte Esterase Neg (Negative) 05/16/18 12:23 Urine WBC (Auto) 2.0 /HPF (0.0-6.0) 05/16/18 12:23 Urine RBC (Auto) 1.0 /HPF (0.0-6.0) 05/16/18 12:23 U Epithel Cells (Auto) 1.0 /HPF (0-13.0) 05/16/18 12:23 Urine Bacteria (Auto) 4+ /HPF (Negative) 05/16/18 12:23 Urine Mucus Few /HPF 05/16/18 12:23 Vancomycin Trough 37.9 ug/mL (5.0-20.0) H 05/18/18 14:36 Blood Type AB POSITIVE 05/19/18 12:56 Antibody Screen Negative 05/19/18 12:56 Crossmatch See Detail 05/19/18 12:56 Active Medications - Current Medications Current Medications: Generic Name Dose Route Start Last Admin Trade Name Freq PRN Reason Stop Dose Admin Acetaminophen 650 mg 05/17/18 03:18 05/17/18 21:42 Tylenol PO 650 mg Q4H PRN Administration Pain MILD(1-3)/Fever >100.5/CHACON Clonidine HCl 0.2 mg 05/21/18 17:00 05/28/18 17:32 Catapres-Tts Patch TD 0.2 mg Mo JOHN Administration Enoxaparin Sodium 40 mg 05/17/18 22:00 05/28/18 22:04 Lovenox SUB-Q 40 mg QDAY@2200 JOHN Administration Famotidine 20 mg 05/17/18 04:00 05/28/18 22:04 Pepcid IV 20 mg BID JOHN Administration Hydralazine HCl 10 mg 05/21/18 16:41 05/26/18 02:44 Apresoline IV 10 mg Q4HR PRN Administration SBP>160 or DBP>110 Hydromorphone HCl 0.5 mg 05/17/18 03:18 05/24/18 19:16 Dilaudid IV 0.5 mg Q3H PRN Administration Pain , Severe (7-10) Ampicillin Sodium 2 gm in 100 mls @ 100 mls/hr 05/22/18 18:00 05/29/18 08:11 Polycillin/Ns 2 Gm/100 Ml IV 06/02/18 17:59 100 mls/hr Q6HR JOHN Administration Amino Acids/Electrolytes/Dextrose 1,999.92 mls @ 83.33 mls/hr 05/28/18 20:00 05/28/18 20:23 Tpn Adult IV 05/29/18 19:59 83.33 mls/hr DAILY@2000 JOHN Administration Protocol Ondansetron HCl 4 mg 05/17/18 03:18 Zofran IV Q8H PRN Nausea And Vomiting Sodium Chloride 10 ml 05/17/18 10:00 05/28/18 22:05 Sodium Chloride Flush Syringe 10 Ml IV 10 ml BID JOHN Administration Sodium Chloride 10 ml 05/17/18 03:18 05/28/18 17:32 Sodium Chloride Flush Syringe 10 Ml IV 10 ml PRN PRN Administration LINE FLUSH Nutrition/Malnutrition Assess - Dietary Evaluation Nutrition/Malnutrition Findings: Nutrition Notes Start: 05/17/18 11:28 Freq: Status: Active Protocol: Document 05/28/18 16:45 KEI (Rec: 05/28/18 16:51 KEI [email or web address]-[email or web address] S1) Nutrition Notes Initial or Follow up Reassessment Current Diagnosis Diabetes,Hypertension, Hyperlipidemia Other Pertinent Diagnosis Enterocutaneous fistula, Line sepsis, UTI, Toxic metabolic encephalopathy Current Diet TPN at 100 ml/hr Labs/Tests Na 135 CO2 - 21 BUN 23 Pertinent Medications Reviewed Height 6 ft 4 in Weight 70.3 kg [place] Body Weight (kg) 91.81 BMI 18.8 Weight change and time frame Current wt obtained from bed scale Subjective/Other Information Day 10 TPN. Percent of energy/protein needs met: 100% energy and pro Burn Absent Trauma Absent #1 Nutrition Diagnosis Inadequate oral intake Diagnosis Progress(for reassessment Continues documentation) Is patient on ventilator? No Is Patient Ambulatory and/or Out of Bed No REE-([facility]-confined to bed) 1865.568 Kcal/Kg value to use for calculation 33 Approximate Energy Requirements Using 2320 kcal/Kg Additional Notes Pro needs 1.2-1.5g/k-105g /day Fluid needs 1ml/kcal Nutrition Intervention Nutrition Support: Decrease CPN rate to 83.33ml/ hr: MVI, lipids, 5.5% amino acids, 17.5% dextrose. Osmolality: 1577. Kcal 2,130 Protein (gm) 110 Carbohydrates (gm) 350 Fat (gm) 50 Fluid (mL) 2,250 Fiber (gm) 0 Goal #1 Meet nutrition needs as best possible via CPN. Goal #2 Wt maintenance and/or gain Follow-Up By: 05/29/18 Additional Comments Labs in am: BMP, Mg, Phos
[2018-05-29] MEDS: SODIUM CHLORIDE FLUSH SYRINGE 10 ML IV SCH ×2 (10:05→22:09)
[2018-05-29] MEDS: PEPCID IV SCH ×2 (10:05→22:08)
[2018-05-29] MEDS ORDERED: TPN ADULT 1,999.9 ML IV SCH (20:00)
[2018-05-29] MEDS: LOVENOX SUB-Q SCH (22:08)
[2018-05-30] MEDS: AMPICILLIN/NS 2 GM/100 ML 2 GM/100 ML BAG IV SCH ×4 (00:14→18:24)
[2018-05-30 06:18] LABS: BUN/Creatinine Ratio 25; Blood Urea Nitrogen 30 mg/dL (9-20); Calcium 8.1 mg/dL (8.4-10.2); Hemolysis Index 14
[2018-05-30] MEDS: PEPCID IV SCH ×2 (11:04→21:01)
[2018-05-30] MEDS: SODIUM CHLORIDE FLUSH SYRINGE 10 ML IV SCH (11:04)
--- NOTE | 2018-05-30 11:07 | Progress Note ---
Assessment and Plan Assessment and plan: Sepsis : E faecalis On IV Antibiotics ELISSA neg for endocarditis Continue Ampicillin 2gms IV every 6 hours Anticipate discharge on Ampicillin 10 gms continuous infusion for 2 weeks ending 06-02-18 Talked with TRAUMA MANAGER [id number] REGARDING Ampicillin infusion---waiting for approval from [place] case managers --UTI: Due to Klebsiella pneumonia ESBL Contact isolation --Enterocutanous fistula: supportive care Surgeon following, cont PPN --Toxic metabolic encephalopathy due to sepsis supportive care --Hypertensive urgency: present on admission moderate control, cont current antihypertensives and PRN medications --Severe malnutrition.hypoalbuminemia: TPN,supportive care ,dietetian following --DVT prophylaxis:Lovenox --Full code Patient stable for discharge Disposition: Anticipate discharge on Ampicillin 10 gms continuous infusion for 2 weeks ending 06-02-18 Order sent to Case management. History Interval history: Patient seen and examined medical records reviewed The patient feels better no new complaints Vital signs noted Hospitalist Physical - Constitutional Vitals: Temp Pulse Resp BP Pulse Ox 97.9 F 72 18 132/60 100 05/30/18 07:39 05/30/18 07:39 05/30/18 07:39 05/30/18 07:39 05/30/18 07:39 General appearance: Present: no acute distress, well-nourished, cachectic, disheveled - EENT Eyes: Present: PERRL, EOM intact - Neck Neck: Present: supple, normal ROM - Respiratory Respiratory effort: normal Respiratory: bilateral: diminished, negative: rales, rhonchi, wheezing - Cardiovascular Rhythm: regular Heart Sounds: Present: S1 & S2 - Extremities Extremities: no ischemia, pulses intact Extremity abnormal: edema, cyanosis Peripheral Pulses: within normal limits - Abdominal General gastrointestinal: non-tender, non-distended, distended, normal bowel sounds, no soft - Integumentary Integumentary: Present: clear, warm - Psychiatric Psychiatric: appropriate mood/affect, cooperative - Neurologic Neurologic: CNII-XII intact, moves all extremities Results - Labs CBC & Chem 7: 05/28/18 05:08 05/31/18 06:00 Labs: Laboratory Last Values WBC 8.7 K/mm3 (4.5-11.0) 05/28/18 05:08 RBC 3.66 M/mm3 (3.65-5.03) 05/28/18 05:08 Hgb 9.8 gm/dl (11.8-15.2) L 05/28/18 05:08 Hct 29.5 % (35.5-45.6) L 05/28/18 05:08 MCV 81 fl (84-94) L 05/28/18 05:08 MCH 27 pg (28-32) L 05/28/18 05:08 MCHC 33 % (32-34) 05/28/18 05:08 RDW 18.1 % (13.2-15.2) H 05/28/18 05:08 Plt Count 325 K/mm3 (140-440) 05/28/18 05:08 Lymph % (Auto) 24.3 % (13.4-35.0) 05/28/18 05:08 Mcdonough % (Auto) 10.3 % (0.0-7.3) H 05/28/18 05:08 Eos % (Auto) 4.2 % (0.0-4.3) 05/28/18 05:08 Baso % (Auto) 0.3 % (0.0-1.8) 05/28/18 05:08 Lymph # 2.1 K/mm3 (1.2-5.4) 05/28/18 05:08 Mcdonough # 0.9 K/mm3 (0.0-0.8) H 05/28/18 05:08 Eos # 0.4 K/mm3 (0.0-0.4) 05/28/18 05:08 Baso # 0.0 K/mm3 (0.0-0.1) 05/28/18 05:08 Seg Neutrophils % 60.9 % (40.0-70.0) 05/28/18 05:08 Seg Neutrophils # 5.3 K/mm3 (1.8-7.7) 05/28/18 05:08 PT 15.6 Sec. (12.2-14.9) H 05/16/18 11:39 INR 1.17 (0.87-1.13) H 05/16/18 11:39 APTT 31.4 Sec. (24.2-36.6) 05/16/18 11:39 Sodium 140 mmol/L (137-145) 05/30/18 04:16 Potassium 3.9 mmol/L (3.6-5.0) D 05/30/18 04:16 Chloride 101.8 mmol/L (98-107) 05/30/18 04:16 Carbon Dioxide 26 mmol/L (22-30) 05/30/18 04:16 Anion Gap 16 mmol/L 05/30/18 04:16 BUN 30 mg/dL (9-20) H 05/30/18 04:16 Creatinine 1.2 mg/dL (0.8-1.5) 05/30/18 04:16 Estimated GFR > 60 ml/min 05/30/18 04:16 BUN/Creatinine Ratio 25 % 05/30/18 04:16 Glucose 130 mg/dL (75-100) H 05/30/18 04:16 POC Glucose 132 (70-105) H 05/30/18 06:13 Hemoglobin A1c 5.6 % (4-6) 05/17/18 06:00 Lactic Acid 0.90 mmol/L (0.7-2.0) 05/16/18 14:30 Calcium 8.1 mg/dL (8.4-10.2) L 05/30/18 04:16 Phosphorus 3.40 mg/dL (2.5-4.5) 05/30/18 04:16 Magnesium 1.80 mg/dL (1.7-2.3) 05/30/18 04:16 Total Bilirubin 0.40 mg/dL (0.1-1.2) 05/25/18 06:48 AST 26 units/L (5-40) 05/25/18 06:48 ALT 57 units/L (7-56) H 05/25/18 06:48 Alkaline Phosphatase 124 units/L (35-129) 05/25/18 06:48 Total Creatine Kinase 43 units/L (55-170) L 05/16/18 11:39 Troponin T < 0.010 ng/mL (0.00-0.029) 05/16/18 11:39 Total Protein 6.7 g/dL (6.3-8.2) D 05/25/18 06:48 Albumin 2.5 g/dL (3.9-5) L 05/25/18 06:48 Albumin/Globulin Ratio 0.6 % 05/25/18 06:48 Triglycerides 79 mg/dL (2-149) 05/20/18 08:06 Urine Color Yellow (Yellow) 05/16/18 12:23 Urine Turbidity Slightly-cloudy (Clear) 05/16/18 12:23 Urine pH 7.0 (5.0-7.0) 05/16/18 12:23 Ur Specific [place] 1.013 (1.003-1.030) 05/16/18 12:23 Urine Protein 30 mg/dl mg/dL (Negative) 05/16/18 12:23 Urine Glucose (UA) Neg mg/dL (Negative) 05/16/18 12:23 Urine Ketones Neg mg/dL (Negative) 05/16/18 12:23 Urine Blood Neg (Negative) 05/16/18 12:23 Urine Nitrite Neg (Negative) 05/16/18 12:23 Urine Bilirubin Neg (Negative) 05/16/18 12:23 Urine Urobilinogen < 2.0 mg/dL (<2.0) 05/16/18 12:23 Ur Leukocyte Esterase Neg (Negative) 05/16/18 12:23 Urine WBC (Auto) 2.0 /HPF (0.0-6.0) 05/16/18 12:23 Urine RBC (Auto) 1.0 /HPF (0.0-6.0) 05/16/18 12:23 U Epithel Cells (Auto) 1.0 /HPF (0-13.0) 05/16/18 12:23 Urine Bacteria (Auto) 4+ /HPF (Negative) 05/16/18 12:23 Urine Mucus Few /HPF 05/16/18 12:23 Vancomycin Trough 37.9 ug/mL (5.0-20.0) H 05/18/18 14:36 Blood Type AB POSITIVE 05/19/18 12:56 Antibody Screen Negative 05/19/18 12:56 Crossmatch See Detail 05/19/18 12:56 Active Medications - Current Medications Current Medications: Generic Name Dose Route Start Last Admin Trade Name Freq PRN Reason Stop Dose Admin Acetaminophen 650 mg 05/17/18 03:18 05/17/18 21:42 Tylenol PO 650 mg Q4H PRN Administration Pain MILD(1-3)/Fever >100.5/CHACON Clonidine HCl 0.2 mg 05/21/18 17:00 05/28/18 17:32 Catapres-Tts Patch TD 0.2 mg Mo JOHN Administration Enoxaparin Sodium 40 mg 05/17/18 22:00 05/29/18 22:08 Lovenox SUB-Q 40 mg QDAY@2200 JOHN Administration Famotidine 20 mg 05/17/18 04:00 05/30/18 11:04 Pepcid IV 20 mg BID JOHN Administration Hydralazine HCl 10 mg 05/21/18 16:41 05/26/18 02:44 Apresoline IV 10 mg Q4HR PRN Administration SBP>160 or DBP>110 Hydromorphone HCl 0.5 mg 05/17/18 03:18 05/24/18 19:16 Dilaudid IV 0.5 mg Q3H PRN Administration Pain , Severe (7-10) Ampicillin Sodium 2 gm in 100 mls @ 100 mls/hr 05/22/18 18:00 05/30/18 11:04 Polycillin/Ns 2 Gm/100 Ml IV 06/02/18 17:59 100 mls/hr Q6HR JOHN Administration Amino Acids/Electrolytes/Dextrose 1,999.9 mls @ 83.33 mls/hr 05/29/18 20:00 05/29/18 20:37 Tpn Adult IV 05/30/18 19:59 83.33 mls/hr DAILY@2000 [facility] Administration Protocol Ondansetron HCl 4 mg 05/17/18 03:18 Zofran IV Q8H PRN Nausea And Vomiting Sodium Chloride 10 ml 05/17/18 10:00 05/30/18 11:04 Sodium Chloride Flush Syringe 10 Ml IV 10 ml BID JOHN Administration Sodium Chloride 10 ml 05/17/18 03:18 05/28/18 17:32 Sodium Chloride Flush Syringe 10 Ml IV 10 ml PRN PRN Administration LINE FLUSH Nutrition/Malnutrition Assess - Dietary Evaluation Nutrition/Malnutrition Findings: Nutrition Notes Start: 05/17/18 11:28 Freq: Status: Active Protocol: Document 05/29/18 12:57 CT (Rec: 05/29/18 13:07 CT [id number]) Co-Sign 05/29/18 12:57 LP Nutrition Notes Initial or Follow up Reassessment Current Diagnosis Diabetes,Hypertension, Hyperlipidemia Other Pertinent Diagnosis Enterocutaneous fistula, Line sepsis, UTI, Toxic metabolic encephalopathy Current Diet TPN at 100 ml/hr Labs/Tests K: 3 M.7 Pertinent Medications Reviewed Height 6 ft 4 in Weight 70.3 kg [place] Body Weight (kg) 91.81 BMI 18.8 Subjective/Other Information Day 11 TPN. Percent of energy/protein needs met: 87%/100% Burn Absent Trauma Absent #1 Nutrition Diagnosis Inadequate oral intake Diagnosis Progress(for reassessment Continues documentation) Is patient on ventilator? No Is Patient Ambulatory and/or Out of Bed No REE-([facility]-confined to bed) 1865.568 Kcal/Kg value to use for calculation 33 Approximate Energy Requirements Using 2320 kcal/Kg Calculation Used for Recommendations [facility] Additional Notes Pro needs 1.2-1.5g/k-105g /day Fluid needs 1ml/kcal Nutrition Intervention Nutrition Support: CPN at 83.33 mL/hr: Phos 14 Mag 10 K 70 Kcal 1,630 Protein (gm) 110 Carbohydrates (gm) 350 Fat (gm) 0 Fluid (mL) 2,000 Fiber (gm) 0 Goal #1 Meet nutrition needs as best possible via CPN. Goal #2 Wt maintenance and/or gain Anticipated Discharge Needs: Home CPN Follow-Up By: 05/30/18 Additional Comments F/U: BMP, Mag, Phos
--- NOTE | 2018-05-30 14:38 | Progress Note ---
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 He is on home TPN through a PICC line since March 2018. Admitted with: #1 Sepsis, Resolved, no leukocytosis with gram-positive bacteremia: Source certainly could be the PICC line. Currently being treated with Vancomycin. #2. Enterococcus Bacteremia: 4 out of 4 bottles. TTE shows no valvular vegetation. #2 Positive urine culture: Patient asymptomatic. UA without significant pyuria. Likely asymptomatic bacteriuria. Urine Culture ESBL Klebsiella #3 EC fistula and malnutrition: on home TPN. EC fistula output is minimal at this time. No abdominal pain. #4. Acute Encephalopathy: Improving related to bacteremia Recs: Contact Isolation for ESBL Continue Ampicillin 2gms IV every 6 hours Anticipate discharge on Ampicillin 10 gms continuous infusion for 2 weeks ending 06-02-18 Clinically stable for discharge home, waiting for OPAT antibiotic approval [facility] M: [phone] O:[phone] Subjective Date of service: 05/30/18 Principal diagnosis: Line sepsis Interval history: Patient seen and examined. No acute distress observed. Mentation improving, calm, no fevers. at bedside. Objective - Exam Narrative Exam: Constitutional: Alert. Awake. No acute distress. Cachexia Head, Ears, Nose: Normocephalic, atraumatic. External ears, nose normal Eyes: Conjunctivae/corneas clear. No icterus. No ptosis. Neck: Supple, no meningeal signs Oral: dentition fair, no thrush. Cardiovascular: S1, S2 normal. Respiratory: Good air entry, clear to auscultation bilaterally GI: Soft, non-tender; bowel sounds normal. EC fistula with moderate greenish drainage. No peritoneal signs Musculoskeletal: No pedal edema, no cyanosis. Skin: No rash or abscess Hem/Lymphatic: No palpable cervical or supraclavicular nodes. No lymphangitis Psych: Mood ok. Affect good Neurological: Awake, alert, follows simple commands Lines: R tunneled PICC - Constitutional Vitals: Vital Signs Temp Pulse Resp BP Pulse Ox 97.9 F 72 18 132/60 100 05/30/18 07:39 05/30/18 10:00 05/30/18 07:39 05/30/18 07:39 05/30/18 07:39 Temperature -Last 24 Hours Temperature 97.9 F Temperature 98.3 F Temperature 97.7 F - Labs CBC & Chem 7: 05/28/18 05:08 05/30/18 04:16 Labs: Abnormal lab results 05/29/18 05/30/18 05/30/18 Range/Units 17:56 00:24 04:16 BUN 30 H (9-20) mg/dL Glucose 130 H (75-100) mg/dL POC Glucose 158 H 150 H (70-105) Calcium 8.1 L (8.4-10.2) mg/dL 05/30/18 05/30/18 Range/Units 06:13 11:14 BUN (9-20) mg/dL Glucose (75-100) mg/dL POC Glucose 132 H 115 H (70-105) Calcium (8.4-10.2) mg/dL
[2018-05-30] MEDS ORDERED: INTRALIPID 20% 250 ML IV SCH (20:00)
[2018-05-30] MEDS ORDERED: TPN ADULT 1,999.92 ML IV SCH (20:00)
[2018-05-30] MEDS: LOVENOX SUB-Q SCH (21:01)
[2018-05-31] MEDS: AMPICILLIN/NS 2 GM/100 ML 2 GM/100 ML BAG IV SCH ×2 (00:12→05:57)
[2018-05-31] MEDS: SODIUM CHLORIDE FLUSH SYRINGE 10 ML IV SCH (00:13)
[2018-05-31 06:51] LABS: BUN/Creatinine Ratio 25; Blood Urea Nitrogen 28 mg/dL (9-20); Hemolysis Index 5
--- NOTE | 2018-05-31 08:39 | Discharge Summary ---
Providers - Providers Date of Admission: 05/16/18 15:18 Date of discharge: 05/31/18 Attending physician: CHUY LOPES 05/16/18 13:19 Consult to Physician [CONS] Urgent Comment: ANOOPIED LUCILLE AT OFFICE AT 0915 Consulting Provider: BRITTNEE LUA Physician Instructions: Reason For Exam: ? septic line 05/17/18 03:18 Consult to Physician [CONS] Routine Comment: SPOKE WITH ANTOINE AT OFFICE Consulting Provider: HO FREEMAN Physician Instructions: Reason For Exam: Line sepsis 05/17/18 03:20 Consult to Physician [CONS] Routine Comment: SPOKE WITH GALE AT OFFICE AT 0940 Consulting Provider: BEBE SHAFFER Physician Instructions: Reason For Exam: GI Fistula 05/19/18 12:41 Consult to Dietitian/Nutrition [CONS] Routine Physician Instructions: PPN please Reason For Exam: Reason for Consult: Write/Manage TPN/PPN 05/20/18 17:57 Consult to Wound/ET Nurse [CONS] Routine Reason For Exam: wound eval 05/21/18 15:09 Consult to Case Management [CONS] Urgent Services Needed at Discharge: Home Health Services Notified:: no Additional Physician Instructions: [facility] M [phone] O [phone] F [phone] OUTPATIENT PARENTERAL ANTIBIOTIC THERAPY ORDERS Diagnoses:Enteroccoccus Faecalis Bacteremia Antimicrobial administration: Anticipate discharge on Ampicillin 10 gms continuous infusion for 2 weeks ending 06-02-18 PICC line remains for TPN Lines: PICC Lab monitoring: CBC, BUN, Creatinine, ALT, AST, once a week preferly on Monday morning. Please fax results to [phone] and call [phone] for critical lab results. Yuni Solomon NP/Dr. Freeman Date: 05/22/18 05/21/18 15:16 Consult to PICC Line RN [CONS] Urgent Reason For Exam: OPAT antibiotics and TPN Type Line:: PICC 05/22/18 11:20 Consult to Interventional Radiology [CONS] Urgent Consulting Provider: ANGELO SHABAZZ Reason For Exam: PICC line placement for TPN and OPAT Place consult to:: Angelo Shabazz Notified:: no 05/29/18 09:31 Physical Therapy Evaluation and Treat [CONS] Routine Comment: Reason For Exam: gen debility 05/29/18 09:32 Occupational Therapy Evaluate and Treat [CONS] Routine Comment: Reason For Exam: gen debility Primary care physician: TANNER FIELDS Hospitalization Reason for admission: Gen Weakness with fever Condition: Poor Pertinent studies: CT abd Pelvis Head CT Echo Hospital course: 72 yr old male pt with Past medical history includes hypertension, diabetes, BPH, hyperlipidemia, perforated ulcer 2, enterocutaneous fistula, currently receiving Parenteral nutrition. He is accompanied by his significant other. His significant other indicates the patient has been weak, having fevers, chills, and appears to be lethargic.Patient was symptomatically manged , medications optimised,today patient is comfortablr,nonew comp;aints,vtal signs Stable,phsical exam is unremarkable Discharge Diagnosis: Sepsis : E faecalis On IV Antibiotics ELISSA neg for endocarditis Continue Ampicillin 2gms IV every 6 hours Anticipate discharge on Ampicillin 10 gms continuous infusion for 2 weeks ending 06-02-18 Talked with ENTERPRISE SOFTWARE ENGINEER [phone] REGARDING Ampicillin infusion--- waiting for approval from [place] bilingual case manager --UTI: Due to Klebsiella pneumonia ESBL Contact isolation --Enterocutanous fistula: supportive care Surgeon following, cont PPN --Toxic metabolic encephalopathy due to sepsis supportive care --Hypertensive urgency: present on admission moderate control, cont current antihypertensives and PRN medications --Severe malnutrition.hypoalbuminemia: TPN,supportive care ,dietetian following --DVT prophylaxis:Lovenox --Full code Patient stable for discharge Disposition: DC/[place]-06 HOME UNDER [facility] Time spent for discharge: 32 min Core Measure Documentation - Palliative Care Palliative Care/ Comfort Measures: Not Applicable - Core Measures Any of the following diagnoses?: history only Exam - Constitutional Vitals: Temp Pulse Resp BP Pulse Ox 97.8 F 80 18 134/60 95 05/31/18 02:00 05/31/18 02:00 05/31/18 02:00 05/31/18 02:00 05/31/18 02:00 General appearance: Present: no acute distress, well-nourished - EENT Eyes: Present: PERRL, EOM intact - Neck Neck: Present: supple, normal ROM, rigidity, enlarged thyroid - Respiratory Respiratory effort: normal Respiratory: bilateral: diminished, rales, negative: rhonchi, wheezing - Cardiovascular Rhythm: regular Heart Sounds: Present: S1 & S2 - Extremities Extremities: no ischemia, No edema - Abdominal General gastrointestinal: Present: soft, non-tender, non-distended, normal bowel sounds - Integumentary Integumentary: Present: clear, warm - Musculoskeletal Musculoskeletal: strength equal bilaterally, generalized weakness - Psychiatric Psychiatric: appropriate mood/affect, cooperative - Neurologic Neurologic: CNII-XII intact, other Plan Activity: advance as tolerated, fall precautions Diet: other (TPN per protocol) Special Instructions: physical therapy Additional Instructions: Antibiotics per ID stop date 06/02/2018 Follow up with: TANNER FIELDS MD [Primary Care Provider] - 3-5 Days BEBE SHAFFER MD [Staff Physician] - 7 Days BEAU MCKEON MD [Staff Physician] - 7 Days Prescriptions: cloNIDine-TTS PATCH [Catapres-Tts Patch] 0.2 mg TD Mo #4 patch
[2018-05-31 08:47] VITALS: BP 131/56
--- NOTE | 2018-05-31 09:03 | Progress Note ---
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 He is on home TPN through a PICC line since March 2018. Admitted with: #1 Sepsis, Resolved, no leukocytosis with gram-positive bacteremia: Source certainly could be the PICC line. Currently being treated with Vancomycin. #2. Enterococcus Bacteremia: 4 out of 4 bottles. TTE shows no valvular vegetation. #2 Positive urine culture: Patient asymptomatic. UA without significant pyuria. Likely asymptomatic bacteriuria. Urine Culture ESBL Klebsiella #3 EC fistula and malnutrition: on home TPN. EC fistula output is minimal at this time. No abdominal pain. #4. Acute Encephalopathy: Improving related to bacteremia Recs: Contact Isolation for ESBL Continue Ampicillin 2gms IV every 6 hours Anticipate discharge on Ampicillin 10 gms continuous infusion for 2 weeks ending 06-02-18 Clinically stable, discharge home today. f/u ID clinic in 2 weeks. Yuni Solomon NP [facility] M: [phone] O:[phone] Subjective Date of service: 05/31/18 Principal diagnosis: Line sepsis Interval history: Patient seen and examined. No acute distress observed. at bedside. Being discharged home today, discussion regarding OPAT, questions answered. Objective - Exam Narrative Exam: Constitutional: Alert. Awake. No acute distress. Cachexia Head, Ears, Nose: Normocephalic, atraumatic. External ears, nose normal Eyes: Conjunctivae/corneas clear. No icterus. No ptosis. Neck: Supple, no meningeal signs Oral: dentition fair, no thrush. Cardiovascular: S1, S2 normal. Respiratory: Good air entry, clear to auscultation bilaterally GI: Soft, non-tender; bowel sounds normal. EC fistula with moderate greenish drainage. No peritoneal signs Musculoskeletal: No pedal edema, no cyanosis. Skin: No rash or abscess Hem/Lymphatic: No palpable cervical or supraclavicular nodes. No lymphangitis Psych: Mood ok. Affect good Neurological: Awake, alert, follows simple commands Lines: R tunneled PICC - Constitutional Vitals: Vital Signs Temp Pulse Resp BP Pulse Ox 98.4 F 72 18 131/56 100 05/31/18 07:58 05/31/18 07:58 05/31/18 07:58 05/31/18 07:58 05/31/18 07:58 Temperature -Last 24 Hours Temperature 98.4 F Temperature 97.8 F Temperature 98.1 F Temperature 97.4 F - Labs CBC & Chem 7: 05/28/18 05:08 05/31/18 06:00 Labs: Abnormal lab results 05/30/18 05/30/18 05/30/18 Range/Units 11:14 18:19 23:58 Potassium (3.6-5.0) mmol/L BUN (9-20) mg/dL Glucose (75-100) mg/dL POC Glucose 115 H 158 H 135 H (70-105) Calcium (8.4-10.2) mg/dL 05/31/18 05/31/18 Range/Units 05:59 06:00 Potassium 3.5 L (3.6-5.0) mmol/L BUN 28 H (9-20) mg/dL Glucose 179 H (75-100) mg/dL POC Glucose 170 H (70-105) Calcium 8.0 L (8.4-10.2) mg/dL
[2018-05-31] MEDS ORDERED: KCL 10MEQ/100ML 10 MEQ/100 ML BAG IV SCH (10:00)
== END 2018-05-31 11:15 | disposition home health service (06) | DRG 286 ==
LOC: ED 11:17 → 4A 15:18 → 2B-ACE 05-23 21:36
PROVIDERS: ADMIT Internal Medicine; ATTEND Internal Medicine
PROC: 02PYX3Z Removal of Infusion Device from Great Vessel, External Approach (ICD-10-PCS; 2018-05-18)
PROC: 30233N1 Transfusion of Nonautologous Red Blood Cells into Peripheral Vein, Percutaneous Approach (ICD-10-PCS; 2018-05-19)
PROC: B2141ZZ Fluoroscopy of Right Heart using Low Osmolar Contrast (ICD-10-PCS; principal; 2018-05-23)
PROC: 0JH63XZ Insertion of Tunneled Vascular Access Device into Chest Subcutaneous Tissue and Fascia, Percutaneous Approach (ICD-10-PCS; 2018-05-23)
PROC: 02H633Z Insertion of Infusion Device into Right Atrium, Percutaneous Approach (ICD-10-PCS; 2018-05-23)
PROC: B244ZZZ Ultrasonography of Right Heart (ICD-10-PCS; 2018-05-23)
DX: T80.211A Bloodstream infection due to central venous catheter, initial encounter (principal); A41.81 Sepsis due to Enterococcus; G92 Toxic encephalopathy; E43 Unspecified severe protein-calorie malnutrition; K63.2 Fistula of intestine; N39.0 Urinary tract infection, site not specified; Z68.1 Body mass index [BMI] 19.9 or less, adult; I16.0 Hypertensive urgency; E78.00 Pure hypercholesterolemia, unspecified; B96.1 Klebsiella pneumoniae [K. pneumoniae] as the cause of diseases classified elsewhere; I10 Essential (primary) hypertension; Y83.8 Other surgical procedures as the cause of abnormal reaction of the patient, or of later complication, without mention of misadventure at the time of the procedure; E78.5 Hyperlipidemia, unspecified; Z16.12 Extended spectrum beta lactamase (ESBL) resistance; E11.9 Type 2 diabetes mellitus without complications; N40.0 Benign prostatic hyperplasia without lower urinary tract symptoms; Z87.891 Personal history of nicotine dependence; Z82.49 Family history of ischemic heart disease and other diseases of the circulatory system; Z87.11 Personal history of peptic ulcer disease; Z79.899 Other long term (current) drug therapy; Z79.84 Long term (current) use of oral hypoglycemic drugs; Y92.098 Other place in other non-institutional residence as the place of occurrence of the external cause
CPT/HCPCS: 36415; 36558; 70450; 71045; 74176; 76937; 77001; 80048; 80053; 80202; 81001; 82140; 82550; 82962; 83036; 83735; 84100; 84132; 84478; 84484; 85025; 85027; 85610; 85730; 86850; 86900; 86901; 86920; 87040; 87076; 87086; 87116; 87186; 93005; 93010; 93306; 96365; 96366; G0378; C1751; J0290; J0360; J0610; J0690; J0692; J0878; J1170; J1644; J1650; J2250; J3010; J3370; J3475; J3480; J7030; J7040; J7042; J7050; P9016